=== PATIENT | female | born 1960 | race Caucasian/White ===

== ENCOUNTER → 2017-12-13 13:34 | Outpatient (CLI) | payer OTHER, SELFPAY ==
--- NOTE | 2017-12-13 13:38 | XR_ITS ---
XR knee LT 4V HISTORY: ITS.REASON: left knee pain ORDERING PHYSICIAN: Zachariah Zuleta MD PATIENT AGE: 57 years COMPARISON: 02/22/2017 FINDINGS: Moderate to severe osteoarthritic changes are present at the medial compartment of the left knee and have progressed since the previous exam with decrease in the joint space, osteosclerosis, and osteophyte formation. There are mild osteoarthritic changes of the patellofemoral joint and there is small suprapatellar effusion suspected. No fracture or dislocation. IMPRESSION: Moderate to severe osteoarthritis of the medial compartment with mild osteoarthritis of the patellofemoral joint and small knee joint effusion
== END ==
PROVIDERS: Visit Provider Orthopaedic Surgery
DX: M25.562 Pain in left knee (principal)
CPT/HCPCS: 73564

== ENCOUNTER → 2017-12-24 12:40 | Outpatient (CLI) | payer OTHER, SELFPAY ==
--- NOTE | 2017-12-24 12:43 | MR_ITS ---
MR knee LT wo con Ordering Physician: Zachariah Zuleta MD Patient Age: 57 years: Female HISTORY: ITS.REASON: left knee pain . Lateral sided knee pain pain around patella but no trauma. Pain with bending and extending the symptoms 2 months TECHNIQUE: Multiplanar multisequence imaging 1.5 the MR. Large knee technique COMPARISON :Plain films left knee 02/22/2017 FINDINGS : . Degenerative osteoarthritic changes of the left knee most evident at the medial compartment. Narrowing medial compartment. Tricompartmental marginal osteophyte features, most evident about the medial margin medial compartment. Chondral thinning and scuffing evident throughout medial compartment. Also note minimal reactive bone changes about the medial margin of the tibia reflecting the degenerative arthritic changes here at the narrowed joint. Patellofemoral joint also demonstrates diffuse chondral thinning at posterior patella a reflecting degenerative changes here . Medial Meniscal Tear: Most extensive tear involving Body the medial meniscus. Fragmented appearing meniscal tear seen here with small diminutive degenerated residual medial meniscus and medial extrusion of body of medial meniscus following the generous marginal osteophytes seen about medial compartment. Medial meniscal tear continues to the posterior but less extensive here. Prominent truncation with Abnormal signal posterior horn reflecting tear, fraying... Difficult to exclude small displaced meniscal fragment summation, accounting for this appearance Lateral meniscus appears overall intact with only question some minor fraying or fibrillation at its free margin at posterior horn and posterior body junction.... Lateral compartment cartilage is better maintained with only borderline thinning.q aspect Prominent joint effusion, with small moderate Rizvi's cyst 4.7 cm length.. There is also prominent also note some generous fluid anteriorly patella and patellar tendon. Most likely dependent fluid less likely related to inflammation. The patellar tendon itself appears intact. Quadriceps tendon intact. Medial collateral ligament with upper normal signal at its femoral insertion. The ACL is thin. I had difficulty confirming it is intact. Suspect it is very thin and degenerated. PCL intact There is also some curious increased bone signal at the superior base of the medial femoral condyle, extending medial/posterior aspect... Of possible significance but may be Nonspecific marrow signal changes in this large patient as a seen to continue superior to this into the distal shaft. . IMPRESSION: 1. OSTEOARTHRITIS most pronounced at the medial compartment, & less pronounced at patellofemoral joint. Prominent joint space narrowing, chondral thinning most pronounced at medial compartment.Also note Diffuse chondral thinning posterior patella .. Tricompartmental Marginal osteophytes, most evident about medial compartment 2. Associated prominent MEDIAL MENISCAL TEAR. Most extensive tear involving body, but tear continues back through posterior horn. 3. Large joint effusion, with Rzivi cyst 4. ACL difficult to visualize. Suspect/favor it is degenerated, thin but intact. Difficult to exclude tear
== END ==
PROVIDERS: PCP Family Medicine; Visit Provider Orthopaedic Surgery
DX: M25.562 Pain in left knee (principal); M17.12 Unilateral primary osteoarthritis, left knee
CPT/HCPCS: 73721

== ENCOUNTER 2018-02-18 19:54 | Observation (INO) ==
[2018-02-18 20:17] LABS: Basophils # 0.1 K/mm3 (0-0.2); Basophils % 1.1 % (0.1-2.0); Eosinophils # 0.4 K/mm3 (0.0-0.4); Eosinophils % 4.5 % (0.1-12.0); Hematocrit 45.4 % (37.0-47.0); Hemoglobin 14.1 g/dL (12.2-16.2); Lymphocytes # 2.9 K/mm3 (0.7-4.5); Lymphocytes % 29.8 K/mm3 (10-50); Mean Corpuscular HGB Conc 31.1 g/dL (31.8-35.4); Mean Corpuscular Volume 93.4 fl (81-99); Mean Platelet Volume 6.7 fl (7.4-10.4); Monocytes # 0.8 K/mm3 (0.1-1.0); Monocytes % 8.2 % (1.7-9.3); Neutrophils # 5.4 K/mm3 (1.8-7.8); Neutrophils % 56.4 % (37.0-80.0); Platelet Count 405 K/mm3 (142-424); Red Blood Count 4.86 M/mm3 (4.20-5.40); Red Cell Distribution Width 12.4 % (11.5-17.5); White Blood Count 9.6 K/mm3 (4.8-10.8)
[2018-02-18 20:34] LABS: Alanine Aminotransferase 69 U/L (12-78); Albumin Level 3.4 gm/dL (3.4-5.0); Alkaline Phosphatase 145 U/L (46-116); Amylase 21 U/L (25-125); Anion Gap 6.1 mEq/L (5-15); Aspartate Amino Transferase 54 U/L (15-37); Bilirubin,Direct 0.1 mg/dL (0.0-0.2); Bilirubin,Indirect 0.5 mg/dL (0.0-0.9); Bilirubin,Total 0.6 mg/dL (0.2-1.0); Blood Urea Nitrogen 9 mg/dL (7-18); Calcium 9.1 mg/dL (8.5-10.1); Carbon Dioxide 30 mmol/L (21.0-32.0); Chloride 100 mmol/L (98-107); Glucose 105 mg/dL (74-106); Lipase 77 u/L (73-393); Potassium 4.1 mmoL/L (3.5-5.1); Sodium 132 mmol/L (136-145); Total Protein,Serum 7.5 gm/dL (6.4-8.2)
--- NOTE | 2018-02-18 21:26 | Emergency Department Note ---
ED Disposition Clinical Impression: Chest pain Qualifiers: Chest pain type: precordial pain Qualified Code(s): R07.2 - Precordial pain Disposition: Admitted as Observation Condition on Discharge: Good Referrals: Valente Matos JR, MD [Primary Care Provider] - - Critical Care Critical Care Time: No Attestation: On 02/18/18, the high probability of a clinically significant, sudden or life threatening deterioration of the following system(s) required my full and direct attention, intervention and personal management. The time I documented below is in addition to time spent performing reported procedures but includes the following listed in this critical care notation. Medical Decision Making - Medical Records Medical records reviewed: Yes: I reviewed the patient's medical records. - [place] Inquiry Pt receiving controlled substance: No Vital Signs: 02/18/18 19:55 02/18/18 20:50 Temperature 98 F Temperature Source Oral Pulse Rate [Right Radial] 84 83 Respiratory Rate 18 16 Blood Pressure [Right Arm] 119/91 112/66 Blood Pressure Mean [Right Arm] 100 81 Blood Pressure Source [Right Arm] Automatic Cuff Automatic Cuff Blood Pressure Position [Right Arm] Sitting Supine 02 Sat by Pulse Oximetry 100 98 Oxygen Delivery Method Room Air Room Air - Lab Data Lab results reviewed: Yes: I reviewed the patient's lab results. Lab Results 02/18/18 20:05: WBC 9.6, RBC 4.86, Hgb 14.1, Hct 45.4, MCV 93.4, MCH 29.0, MCHC 31.1 L, RDW 12.4, Plt Count 405, MPV 6.7 L, Neut % (Auto) 56.4, Lymph % (Auto) 29.8, [place] % (Auto) 8.2, Eos % (Auto) 4.5, Baso % (Auto) 1.1, Neut # (Auto) 5.4 , Lymph # (Auto) 2.9, [place] # (Auto) 0.8, Eos # (Auto) 0.4, Baso # (Auto) 0.1 02/18/18 20:05: Sodium 132 L, Potassium 4.1, Chloride 100, Carbon Dioxide 30, Anion Gap 6.1, BUN 9, Creatinine 0.66, Estimated Creat Clear 164, Estimated GFR 92, Est GFR ( Amer) 111, Glucose 105, Calcium 9.1, Total Bilirubin 0.6, Direct Bilirubin 0.1, Indirect Bilirubin 0.5, AST 54 H, ALT 69, Alkaline Phosphatase 145 H, Troponin I < 0.02, Total Protein 7.5, Albumin 3.4, Amylase 21 L, Lipase 77 Result diagrams: 02/18/18 20:05 02/18/18 20:05 Orders (Tests/Meds): ED MEDICATIONS Discontinued Medications Generic Name Dose Route Start Last Admin Trade Name Freq PRN Reason Stop Dose Admin Ketorolac Tromethamine 30 mg 02/18/18 20:16 02/18/18 20:22 Toradol 30mg/Ml Vial IV 02/18/18 20:17 30 mg ONCE ONE Administration ORDERS Category Date Time Status XR chest 2V Stat Exams 02/18/18 20:10 Taken - Radiology Data #1 Image(s): Chest Image Reviewed: Yes I reviewed the patient's radiology image Preliminary Findings: Normal/NAD - ECG Data Tracing #1 I reviewed this ECG and interpreted as documented below: ECG normal with no acute: arrhythmias, ischemia, conduction abnormalities, chamber hypertrophy Normal Sinus Rhythm: Yes - Physician Consults Physician Consulted: aman Reason -: Admission Chest Pain HPI - General Chief Complaint: Chest Pain Stated Complaint: chest pain Time Seen by Provider: 02/18/18 21:22 Mode of Arrival: EMS Source of Information: Patient, EMS, Medical Record Limitations: No Limitations Description of Symptoms (Recalled from ER Triage Doc. by RN): to two, nitro at home for chest pain watching tv, stress lately, no relief, asprin by ems - History of Present Illness MD complaint: chest pain indicative of cardiac Duration: constant Pain location: substernal Severity: moderate Quality: sharp Pain radiation: LUE Relieving factors: nothing Risk Factors for CAD: Family Hx of CAD Treatments prior to or on arrival for Cardiac Chest Pain: aspirin, nitroglycerin - JOSEPH Score Non-Stemi Age of patient: Less than 65 yrs Number of risk factors for CAD: Presence of 3 or more Prior coronary artery stenosis(seen in coronary angiography): Less than 50% ST-Segment deviation on ECG (more than 1 min): Absent Prior aspirin intake: ASA intake in the last 7 days Severe anginal chest pain: No or one episode in last 24 hours Elevated cardiac markers(CK-MB or troponin): Absent Non-Stemi Risk Score: 2 - Related Data Prior Cardiac Testing/Procedures: Cardiac Angiogram On Oral Contraceptives: No Home Medications Medication Instructions Recorded Confirmed acetaminophen 300 mg-codeine 30 mg 1 tab PO Q6H PRN 12/13/17 02/18/18 tablet aspirin 81 mg chewable tablet 81 mg PO ONCE 12/13/17 02/18/18 calcium carbonate 200 mg calcium 200 mg PO TID tab 12/13/17 02/18/18 (500 mg) chewable tablet diazepam 5 mg tablet 5 mg PO TID 12/13/17 02/18/18 diclofenac sodium 25 mg 25 mg PO TID 12/13/17 02/18/18 tablet,delayed release furosemide 20 mg tablet 20 mg PO ONCE 12/13/17 02/18/18 metoprolol tartrate 25 mg tablet 25 mg PO BID 12/13/17 02/18/18 mometasone-formoterol HFA 100 2 puff INHALATION BID 12/13/17 02/18/18 mcg-5 mcg/actuation aerosol inhaler multivitamin tablet 1 tab PO QAM 12/13/17 02/18/18 pantoprazole 20 mg tablet,delayed 20 mg PO QHS 12/13/17 02/18/18 release pravastatin 20 mg tablet 20 mg PO QHS 12/13/17 02/18/18 quinapril 10 mg tablet 10 mg PO BID 12/13/17 02/18/18 ropinirole 1 mg tablet 1 mg PO TID 12/13/17 02/18/18 venlafaxine 25 mg tablet 25 mg PO TID 12/13/17 02/18/18 Amitriptyline HCl [Elavil 50mg 50 mg PO DAILY 02/18/18 02/18/18 tablet] Allergies Allergy/AdvReac Type Severity Reaction Status Date / Time diphenhydramine Allergy Unknown AGITATION Verified 02/18/18 20:13 [From BENADRYL] oxycodone [From PERCOCET] Allergy Unknown Verified 02/18/18 20:13 promethazine [From PHENERGAN] Allergy Unknown AGITATION Verified 02/18/18 20:13 sumatriptan [From IMITREX] Allergy Unknown Verified 02/18/18 20:13 [place] History I have reviewed the patient's past medical history: Yes Medical History: Reports:: Anxiety, Depression, Gastroesophageal Reflux Disease( GERD), Hyperlipidemia, Hypertension Denies:: Cancer, Diabetes Mellitus Type 1, Diabetes Mellitus Type 2, MRSA Other Medical History: Reports: Arthritis Laterality Cases: Left: Arthroscopy Knee, Bilateral: Carpal Tunnel Release Other Surgeries: Yes: Appendectomy, Cholecystectomy, Hysterectomy-Total Amputation: No Fractures: No - Social History Smoking Status: Never smoker Alcohol Intake: current Alcohol Intake Frequency:: holidays/special occasions only - Psychiatric History Expresses thoughts of harming self/others: None Suicide Plan Description: No Plan Pschychiatric History:: Reports:: Anxiety, Depression Family Hx:: Stroke, Heart Attack, Coronary Artery Disease ROS Obtained: Yes All systems reviewed & no additional complaints - Constitutional Constitutional: Denies fever(s) - Eyes Eyes: Denies change in vision - ENT Ears, Nose, Mouth, and Throat: Denies sore throat - Cardiovascular Cardiovascular: Reports chest pain - Respiratory Respiratory: No cough - Gastrointestinal Gastrointestingal: Denies: abdominal pain - Genitourinary Female Genitourinary: Denies hematuria - Musculoskeletal Musculoskeletal: Denies joint pain, Denies joint swelling - Integumentary/Breasts Skin/Breast: Denies rash - Neurologic Neurologic: Reports headache(s), Denies seizure-like activity Physical Exam - General General appearance: alert - Head Head exam: normocephalic - Eye Eye exam: Present: PERRL, EOMI - ENT ENT exam: Present: mucous membranes moist - Neck Neck exam: Present: trachea midline - Respiratory Respiratory exam: Absent: respiratory distress - Cardiovascular Cardiovascular exam: Present: regular rate, systolic murmur - Abdominal Exam Abdominal exam: Present: soft - Extremities Exam Extremities exam: Absent: calf tenderness - Neurological Exam Neurological exam: Present: alert, oriented X3, CN II-XII intact - Psychiatric Psychiatric exam: Present: normal affect - Skin Skin exam: Absent: rash
[2018-02-19 05:25] LABS: Basophils # 0.1 K/mm3 (0-0.2); Basophils % 1.6 % (0.1-2.0); Eosinophils # 0.5 K/mm3 (0.0-0.4); Eosinophils % 6.3 % (0.1-12.0); Lymphocytes # 2.9 K/mm3 (0.7-4.5); Lymphocytes % 37.9 K/mm3 (10-50); Mean Corpuscular HGB Conc 30.6 g/dL (31.8-35.4); Mean Corpuscular Hemoglobin 28.7 pg (27.0-31.2); Mean Corpuscular Volume 93.8 fl (81-99); Mean Platelet Volume 6.7 fl (7.4-10.4); Monocytes # 0.6 K/mm3 (0.1-1.0); Monocytes % 7.6 % (1.7-9.3); Neutrophils # 3.6 K/mm3 (1.8-7.8); Neutrophils % 46.6 % (37.0-80.0); Platelet Count 339 K/mm3 (142-424); Red Blood Count 4.36 M/mm3 (4.20-5.40); Red Cell Distribution Width 12.5 % (11.5-17.5); White Blood Count 7.8 K/mm3 (4.8-10.8)
[2018-02-19 05:29] LABS: Hemoglobin 12.6 g/dL (12.2-16.2)
[2018-02-19 05:44] LABS: Anion Gap 9.9 mEq/L (5-15); Calcium 8.8 mg/dL (8.5-10.1); Chol/HDL Ratio 4.7 (1-3.5); Potassium 3.9 mmoL/L (3.5-5.1)
--- NOTE | 2018-02-19 07:28 | Pharmacy Consult Notes ---
[facility] Pharmacy VTE Monitoring - Patient Demographics Admission date: 02/19/18 Report Date: 02/19/18 Time: 07:28 Allergies/Adverse Reactions: Patient Allergies diphenhydramine [From BENADRYL] Allergy (Unknown, Verified 02/18/18 20:13) AGITATION oxycodone [From PERCOCET] Allergy (Unknown, Verified 02/18/18 20:13) promethazine [From PHENERGAN] Allergy (Unknown, Verified 02/18/18 20:13) AGITATION sumatriptan [From IMITREX] Allergy (Unknown, Verified 02/18/18 20:13) Height: 1.7 m Weight: 116.205 kg Patient Problems: Current Active Problems Chest pain (Acute) - VTE Risk Labs: VTE Related Lab Results Hgb 12.6 g/dL (12.2-16.2) D 02/19/18 05:00 Hct 41.0 % (37.0-47.0) 02/19/18 05:00 Plt Count 339 K/mm3 (142-424) 02/19/18 05:00 BUN 10 mg/dL (7-18) 02/19/18 05:00 Creatinine 0.68 mg/dL (0.55-1.02) 02/19/18 05:00 Estimated Creat Clear 163 mL/min (0-300) 02/19/18 05:00 Was VTE Risk Assessment Performed: Yes VTE Score: 4 VTE Risk Level: Low Risk Clinical Trial Participant: No - Prophylaxis VTE Prophylaxis Ordered?: Yes Types of VTE Prophylaxis: TEDS Knee High
[2018-02-19 07:41] VITALS: BP 86/48
--- NOTE | 2018-02-19 08:39 | History & Physical Report ---
*Admission Date: 02/19/18 <Brinda Sanchez 02/19/18 09:00> *Chief complaint: Chest pain <Brinda Sanchez 02/19/18 09:00> *History of present illness: Ms. Barcenas is a 57-year-old female with a physician in [facility] who presented to [facility] emergency room after experiencing sharp left sternal chest pain while sitting and watching television last p.m. She has a history of hypertension, hyperlipidemia, anxiety, and heart murmur. She denies any radiation of her pain, heart palpitations, leg edema, shortness of breath, nausea, vomiting, fever, and cough. She states she took 2 nitroglycerin at home without any change in her pain. She did receive some morphine in the emergency room which did not help. She was evaluated in the emergency room and admitted for further cardiology evaluation. This a.m. the pain persist but is much less. She still describes the discomfort as being sharp in nature. <Brinda Sanchez 02/19/18 09:00> [facility] History Medical History: Reports:: Anxiety, Arrhythmia, Depression, Gastroesophageal Reflux Disease(GERD), Heart Murmur, Hyperlipidemia, Hypertension Denies:: Atherosclerotic Heart Disease, Cancer, Congestive Heart Failure, Chronic Obstructive Pulmonary Disease (COPD), Diabetes Mellitus Type 1, Diabetes Mellitus Type 2, MRSA <Brinda Sanchez 02/19/18 09:00> Other Medical History: Reports: Arthritis, Cataracts, Fibromyalgia <Brinda Sanchez 02/19/18 09:00> Laterality Cases: Left: Arthroscopy Knee, Bilateral: Carpal Tunnel Release, Cataract <Brinda Sanchez 02/19/18 09:00> Other Surgeries: Yes: Appendectomy, Cholecystectomy, Hysterectomy-Total < Brinda Sanchez 02/19/18 09:00> Amputation: No <Brinda Sanchez 02/19/18 09:00> Fractures: No <Brinda Sanchez 02/19/18 09:00> - *Social History Educational Level: Completed High School <Brinda Sanchez 02/19/18 09:00> Smoking Status: Never smoker <Brinda Sanchez 02/19/18 09:00> Alcohol Intake: never <Brinda Sanchez 02/19/18 09:00> Alcohol Intake Frequency:: holidays/special occasions only <SanchezBrinda 09:00> Occupational Status: disabled <SanchezBrinda 02/19/18 09:00> Housing: house <SanchezBrinda 02/19/18 09:00> Household Members: spouse, family <Sanchez,Brinda 02/19/18 09:00> - Psychiatric History Expresses thoughts of harming self/others: None <Brinda Sanchez 02/19/18 09: 00> Suicide Plan Description: No Plan <SanchezBrinda 02/19/18 09:00> Pschychiatric History:: Reports:: Anxiety, Depression <DanielBrinda 09:00> *Family Hx:: Stroke, Heart Attack, Coronary Artery Disease <DanielBrinda 09:00> Review of Systems - Constitutional Denies chills, Denies fever(s), Denies headache(s) <Brinda Sanchez 02/19/18 09:00> - ENT Denies ear pain, Denies sore throat, Denies dizziness <DanielBrinda 09:00> - *Cardiovascular Reports chest pain, Denies excessive sweating, Denies shortness of breath, Denies generalized swelling, Denies irregular heart rhythm, Denies leg swelling <Melinda Sanchezhy 02/19/18 09:00> - *Respiratory Denies chest congestion, Denies cough, Denies shortness of breath <Melinda Sanchezhy 02/19/18 09:00> - *Gastrointestinal Reports heartburn, Denies abdominal pain, Denies constipation, Denies nausea, Denies vomiting <Melinda Sanchezhy 02/19/18 09:00> - *Genitourinary Denies difficulty urinating <Melinda Sanchezhy 02/19/18 09:00> - *Musculoskeletal Denies abnormal walking, Denies joint pain <DanielBrinda 02/19/18 09:00> - *Neurologic Reports headache(s), Denies seizure-like activity <Melinda Sanchezhy 02/19/18 09 :00> - Psychiatric Reports anxiety, Reports depression <DanielBrinda 02/19/18 09:00> Meds Home Medications Medication Instructions Recorded Confirmed Type acetaminophen 300 mg-codeine 30 mg 1 tab PO Q6H PRN 12/13/17 02/18/18 History tablet aspirin 81 mg chewable tablet 81 mg PO DAILY 12/13/17 02/18/18 History calcium carbonate 200 mg calcium 200 mg PO DAILY tab 12/13/17 02/18/18 History (500 mg) chewable tablet diazepam 5 mg tablet 10 mg PO TID 12/13/17 02/18/18 History diclofenac sodium 25 mg 25 mg PO TID 12/13/17 02/18/18 History tablet,delayed release furosemide 20 mg tablet 20 mg PO DAILY 12/13/17 02/18/18 History metoprolol tartrate 25 mg tablet 25 mg PO BID 12/13/17 02/18/18 History mometasone-formoterol HFA 100 2 puff INHALATION BID 12/13/17 02/18/18 History mcg-5 mcg/actuation aerosol inhaler multivitamin tablet 1 tab PO QAM 12/13/17 02/18/18 History ropinirole 1 mg tablet 1 mg PO DAILY 12/13/17 02/18/18 History Amitriptyline HCl [Elavil 50mg 100 mg PO HS 02/18/18 02/19/18 History tablet] Pantoprazole Sodium [Protonix 20mg 20 mg PO BID 02/19/18 02/19/18 History Tab] Pravastatin Sodium [Pravachol 40mg 40 mg PO HS 02/19/18 02/19/18 History Tablet] Quinapril HCl 60 mg PO DAILY 02/19/18 02/19/18 History Tamsulosin HCl [Flomax 0.4mg 0.4 mg PO HS 02/19/18 02/19/18 History capsule] Venlafaxine HCl 75 mg PO BID 02/19/18 02/19/18 History <Saeid Rose - 02/26/18 16:41> Allergies Allergy/AdvReac Type Severity Reaction Status Date / Time diphenhydramine Allergy Unknown AGITATION Verified 02/18/18 20:13 [From BENADRYL] oxycodone [From PERCOCET] Allergy Unknown Verified 02/18/18 20:13 promethazine [From PHENERGAN] Allergy Unknown AGITATION Verified 02/18/18 20:13 sumatriptan [From IMITREX] Allergy Unknown Verified 02/18/18 20:13 <Saeid Rose - 02/26/18 16:41> Exam Vital signs and Labs for Last 24 Hours: Temp Pulse Resp BP Pulse Ox 98.1 F 84 18 86/48 92 L 02/19/18 07:40 02/19/18 08:00 02/19/18 08:00 02/19/18 07:40 02/19/18 08:00 <Saeid Rose - 02/26/18 16:41> Temp Pulse Resp BP Pulse Ox 98.1 F 84 18 86/48 92 L 02/19/18 07:40 02/19/18 07:40 02/19/18 07:40 02/19/18 07:40 02/19/18 07:40 Laboratory Results - last 24 hr 02/18/18 20:05: WBC 9.6, RBC 4.86, Hgb 14.1, Hct 45.4, MCV 93.4, MCH 29.0, MCHC 31.1 L, RDW 12.4, Plt Count 405, MPV 6.7 L, Neut % (Auto) 56.4, Lymph % (Auto) 29.8, [place] % (Auto) 8.2, Eos % (Auto) 4.5, Baso % (Auto) 1.1, Neut # (Auto) 5.4 , Lymph # (Auto) 2.9, [place] # (Auto) 0.8, Eos # (Auto) 0.4, Baso # (Auto) 0.1 02/18/18 20:05: Sodium 132 L, Potassium 4.1, Chloride 100, Carbon Dioxide 30, Anion Gap 6.1, BUN 9, Creatinine 0.66, Estimated Creat Clear 164, Estimated GFR 92, Est GFR ( Amer) 111, Glucose 105, Calcium 9.1, Total Bilirubin 0.6, Direct Bilirubin 0.1, Indirect Bilirubin 0.5, AST 54 H, ALT 69, Alkaline Phosphatase 145 H, Troponin I < 0.02, Total Protein 7.5, Albumin 3.4, Amylase 21 L, Lipase 77 02/18/18 22:56: Troponin I < 0.02 02/19/18 01:50: Troponin I < 0.02 02/19/18 05:00: Troponin I < 0.02 02/19/18 05:00: WBC 7.8, RBC 4.36, Hgb 12.6 D, Hct 41.0, MCV 93.8, MCH 28.7, MCHC 30.6 L, RDW 12.5, Plt Count 339, MPV 6.7 L, Neut % (Auto) 46.6, Lymph % ( Auto) 37.9, [place] % (Auto) 7.6, Eos % (Auto) 6.3, Baso % (Auto) 1.6, Neut # (Auto ) 3.6, Lymph # (Auto) 2.9, [place] # (Auto) 0.6, Eos # (Auto) 0.5 H, Baso # (Auto) 0.1 02/19/18 05:00: Sodium 139, Potassium 3.9, Chloride 103, Carbon Dioxide 30, Anion Gap 9.9, BUN 10, Creatinine 0.68, Estimated Creat Clear 163, Estimated GFR 89, Est GFR ( Amer) 107, Glucose 115 H, Calcium 8.8, Magnesium 1.8, Triglycerides 147, Cholesterol 168, LDL Cholesterol 103, VLDL Cholesterol 29, HDL Cholesterol 36, Cholesterol/HDL Ratio 4.7 H <Brinda Sanchez 02/19/18 09:00> I & O for Last 24 hours: Intake & Output 02/16/18 02/17/18 02/18/18 02/19/18 11:59 11:59 11:59 11:59 Intake Total 0 / 0 Balance 0 / 0 Weight 256 lb 3 oz <Brinda Sanchez 02/19/18 09:00> Radiology Reports for the Last 24 Hours: Chest x-ray 02/18/2018 IMPRESSION: Negative chest, no acute finding <Brinda Sanchez 02/19/18 09:00> - Constitutional no acute distress, obese <Brinda Sanchez 02/19/18 09:00> - *Routine HEENT Exam Head: Present: normocephalic, atraumatic <Brinda Sanchez 02/19/18 09:00> Eye: Present: PERRL. Absent: conjunctival icterus, scleral injection <Brinda Sanchez 02/19/18 09:00> ENT: Present: mucous membranes moist, oropharynx clear <Brinda Sanchez - 09:00> - *Routine Neck Exam Present: supple. Absent: carotid bruit, lymphadenopathy, thyromegaly <[facility] 02/19/18 09:00> - Routine Chest/Breast/Axilla Exam Chest wall: Absent: tenderness <Sanchez,Brinda - 02/19/18 09:00> - *Routine Respiratory Exam Present: CTA bilaterally (Anteriorly and posteriorly) [facility]> - *Routine Cardiovascular Exam Present: RRR <Sanchez,[facility] 02/19/18 09:00> - *Routine Abdominal Exam Present: soft, normoactive bowel sounds. Absent: tenderness <[facility] 02/19/18 09:00> Comments: Obese <[facility] 02/19/18 09:00> - *Routine Extremities Exam Absent: edema, calf tenderness <[facility] 02/19/18 09:00> - *Routine Neurological Exam Absent: altered mental status [facility]> Almost constant movement of mouth and tongue. <Sanchez,[facility] 02/19/18 09:00> H&P: Result - Labs Labs: Short CBC 02/18/18 02/19/18 Range/Units 20:05 05:00 WBC 9.6 7.8 (4.8-10.8) K/mm3 Hgb 14.1 12.6 D (12.2-16.2) g/dL Hct 45.4 41.0 (37.0-47.0) % Plt Count 405 339 (142-424) K/mm3 [facility] 02/18/18 02/19/18 20:05 05:00 Sodium 132 L 139 Potassium 4.1 3.9 Chloride 100 103 Carbon Dioxide 30 30 BUN 9 10 Creatinine 0.66 0.68 Glucose 105 115 H Calcium 9.1 8.8 Cardiac Enzymes 02/18/18 02/18/18 02/19/18 Range/Units 20:05 22:56 01:50 Troponin I < 0.02 < 0.02 < 0.02 (0.00-0.06) ng/ml 02/19/18 Range/Units 05:00 Troponin I < 0.02 (0.00-0.06) ng/ml Liver Function 02/18/18 Range/Units 20:05 Total Bilirubin 0.6 (0.2-1.0) mg/dL Direct Bilirubin 0.1 (0.0-0.2) mg/dL AST 54 H (15-37) U/L ALT 69 (12-78) U/L Alkaline Phosphatase 145 H (46-116) U/L Albumin 3.4 (3.4-5.0) gm/dL <SanchezBrinda - 02/19/18 09:00> Assessment and Plan (1) Chest pain Status: Acute Qualifiers: Chest pain type: precordial pain Qualified Code(s): R07.2 - Precordial pain Category: Medical Code(s): R07.9 - Chest pain, unspecified (2) HTN (hypertension) Status: Chronic Category: Medical Code(s): I10 - Essential (primary) hypertension (3) Hyperlipemia Status: Chronic Category: Medical Code(s): E78.5 - Hyperlipidemia, unspecified (4) Anxiety Status: Chronic Category: Medical Code(s): F41.9 - Anxiety disorder, unspecified (5) Depression Status: Chronic Category: Medical Code(s): F32.9 - Major depressive disorder, single episode, unspecified (6) GERD (gastroesophageal reflux disease) Status: Chronic Category: Medical Code(s): K21.9 - Gastro-esophageal reflux disease without esophagitis <MiltonSaeid Diego - 02/26/18 16:41> (1) Chest pain Status: Acute Qualifiers: Chest pain type: precordial pain Qualified Code(s): R07.2 - Precordial pain Category: Medical Code(s): R07.9 - Chest pain, unspecified (2) HTN (hypertension) Status: Chronic Category: Medical Code(s): I10 - Essential (primary) hypertension (3) Hyperlipemia Status: Chronic Category: Medical Code(s): E78.5 - Hyperlipidemia, unspecified (4) Anxiety Status: Chronic Category: Medical Code(s): F41.9 - Anxiety disorder, unspecified (5) Depression Status: Chronic Category: Medical Code(s): F32.9 - Major depressive disorder, single episode, unspecified (6) GERD (gastroesophageal reflux disease) Status: Chronic Category: Medical Code(s): K21.9 - Gastro-esophageal reflux disease without esophagitis <Brinda Sanchez - 02/19/18 08:36> - Assessment and plan all Dx Assessment and Plan for all problems:: Patient seen and examined. Concur with above plan. <Saeid Rose - 02/26/18 16:41> Troponin I's have been negative 4. She will have a cardiology consult. PPI has been added to her meds. Other home meds have been started. <Brinda Sanchez - 02/19/18 09:00>
--- NOTE | 2018-02-19 10:52 | Consult Report ---
History of Present Illness Consult date: 02/19/18 Requesting physician: Saeid Rose Consult reason: chest pain Chief complaint: Chest pain and shortness of breath Additional Medical History:: 1. Atypical chest pain a. Sharp pain of the left chest wall. No relief with NTG. b. No known history of Coronary artery disease. c. Normal coronaries: catheterization 3-4 years ago 2. Hypertension 3. Hyperlipidemia a. LDL 103. Pt is on a statin 4. Anxiety History of present illness: 57-year-old female is presented in the emergency room early this a.m. complaining of sharp left chest wall pain that began when she was watching TV. Denies radiation of the pain. This episode of chest pain was accompanied by shortness of breath. Denied nausea or vomiting. Denied dizziness or palpitations. Patient stated she took nitroglycerin times at home with no relief from the pain. Patient has no known history of coronary disease. Patient does have history of hypertension, hyperlipidemia and anxiety. Patient denies tobacco or alcohol use. Initial EKG revealed normal sinus rhythm with a heart rate of 87 bpm. Chest x- ray revealed no acute findings. Baseline labs were obtained which were unremarkable. Cardiac enzymes troponin less than 0.021 was drawn. Patient related that 3-4 years ago she underwent a heart catheterization in which she was told her heart was normal. Patient also stated she has had several stress tests in the past which have revealed no abnormalities. Discussed with the patient the benefits and risk of a Lexiscan Myoview to determine ischemia. Patient was agreeable on an outpatient basis. Echocardiogram will also be obtained to assess LV function and valve status. This plan was discussed Dr. Rose. He was also agreeable. [facility] History Medical History: Reports:: Anxiety, Arrhythmia, Depression, Gastroesophageal Reflux Disease(GERD), Heart Murmur, Hyperlipidemia, Hypertension Denies:: Atherosclerotic Heart Disease, Cancer, Congestive Heart Failure, Chronic Obstructive Pulmonary Disease (COPD), Diabetes Mellitus Type 1, Diabetes Mellitus Type 2, MRSA Other Medical History: Reports: Arthritis, Cataracts, Fibromyalgia Laterality Cases: Left: Arthroscopy Knee, Bilateral: Carpal Tunnel Release, Cataract Other Surgeries: Yes: Appendectomy, Cholecystectomy, Hysterectomy-Total Amputation: No Fractures: No - *Social History Educational Level: Completed High School Smoking Status: Never smoker Alcohol Intake: never Alcohol Intake Frequency:: holidays/special occasions only Occupational Status: disabled Housing: house Household Members: spouse, family - Psychiatric History Expresses thoughts of harming self/others: None Suicide Plan Description: No Plan Pschychiatric History:: Reports:: Anxiety, Depression *Family Hx:: Stroke, Heart Attack, Coronary Artery Disease Meds Home Medications Medication Instructions Recorded Confirmed Type acetaminophen 300 mg-codeine 30 mg 1 tab PO Q6H PRN 12/13/17 02/18/18 History tablet aspirin 81 mg chewable tablet 81 mg PO DAILY 12/13/17 02/18/18 History calcium carbonate 200 mg calcium 200 mg PO DAILY tab 12/13/17 02/18/18 History (500 mg) chewable tablet diazepam 5 mg tablet 10 mg PO TID 12/13/17 02/18/18 History diclofenac sodium 25 mg 25 mg PO TID 12/13/17 02/18/18 History tablet,delayed release furosemide 20 mg tablet 20 mg PO DAILY 12/13/17 02/18/18 History metoprolol tartrate 25 mg tablet 25 mg PO BID 12/13/17 02/18/18 History mometasone-formoterol HFA 100 2 puff INHALATION BID 12/13/17 02/18/18 History mcg-5 mcg/actuation aerosol inhaler multivitamin tablet 1 tab PO QAM 12/13/17 02/18/18 History ropinirole 1 mg tablet 1 mg PO DAILY 12/13/17 02/18/18 History Amitriptyline HCl [Elavil 50mg 100 mg PO HS 02/18/18 02/19/18 History tablet] Pantoprazole Sodium [Protonix 20mg 20 mg PO BID 02/19/18 02/19/18 History Tab] Pravastatin Sodium [Pravachol 40mg 40 mg PO HS 02/19/18 02/19/18 History Tablet] Quinapril HCl 60 mg PO DAILY 02/19/18 02/19/18 History Tamsulosin HCl [Flomax 0.4mg 0.4 mg PO HS 02/19/18 02/19/18 History capsule] Venlafaxine HCl 75 mg PO BID 02/19/18 02/19/18 History Allergies Allergy/AdvReac Type Severity Reaction Status Date / Time diphenhydramine Allergy Unknown AGITATION Verified 02/18/18 20:13 [From BENADRYL] oxycodone [From PERCOCET] Allergy Unknown Verified 02/18/18 20:13 promethazine [From PHENERGAN] Allergy Unknown AGITATION Verified 02/18/18 20:13 sumatriptan [From IMITREX] Allergy Unknown Verified 02/18/18 20:13 Review of Systems - Review of Systems Review of systems:: pertinent systems reviewed and negative unless documented below - Constitutional Reports weakness - ENT Denies dizziness, Denies difficulty swallowing - *Cardiovascular Reports chest pain, Reports chest pain at rest, Reports chest pain with activity , Reports shortness of breath, Reports shortness of breath with activity, Denies generalized swelling, Denies radiating jaw, neck or arm pain - *Respiratory Reports shortness of breath, Reports shortness of breath with activity, Denies cough, Denies wheezing - *Gastrointestinal Denies abdominal pain, Denies belching, Denies difficulty swallowing - *Musculoskeletal Reports muscle weakness, Denies abnormal walking - *Neurologic Reports headache(s), Denies abnormal walking, Denies confusion, Denies dizziness , Denies seizure-like activity, Denies fainting, Denies dizziness - Psychiatric Denies abnormal sleep pattern, Denies change in appetite - Endocrine Denies excessive sweating, Denies rapid, pounding, or irregular heartbeat Exam Vital signs and Labs for Last 24 Hours: Temp Pulse Resp BP Pulse Ox 98.1 F 84 18 86/48 92 L 02/19/18 07:40 02/19/18 07:40 02/19/18 07:40 02/19/18 07:40 02/19/18 07:40 Laboratory Results - last 24 hr 02/18/18 20:05: WBC 9.6, RBC 4.86, Hgb 14.1, Hct 45.4, MCV 93.4, MCH 29.0, MCHC 31.1 L, RDW 12.4, Plt Count 405, MPV 6.7 L, Neut % (Auto) 56.4, Lymph % (Auto) 29.8, [place] % (Auto) 8.2, Eos % (Auto) 4.5, Baso % (Auto) 1.1, Neut # (Auto) 5.4 , Lymph # (Auto) 2.9, [place] # (Auto) 0.8, Eos # (Auto) 0.4, Baso # (Auto) 0.1 02/18/18 20:05: Sodium 132 L, Potassium 4.1, Chloride 100, Carbon Dioxide 30, Anion Gap 6.1, BUN 9, Creatinine 0.66, Estimated Creat Clear 164, Estimated GFR 92, Est GFR ( Amer) 111, Glucose 105, Calcium 9.1, Total Bilirubin 0.6, Direct Bilirubin 0.1, Indirect Bilirubin 0.5, AST 54 H, ALT 69, Alkaline Phosphatase 145 H, Troponin I < 0.02, Total Protein 7.5, Albumin 3.4, Amylase 21 L, Lipase 77 02/18/18 22:56: Troponin I < 0.02 02/19/18 01:50: Troponin I < 0.02 02/19/18 05:00: Troponin I < 0.02 02/19/18 05:00: WBC 7.8, RBC 4.36, Hgb 12.6 D, Hct 41.0, MCV 93.8, MCH 28.7, MCHC 30.6 L, RDW 12.5, Plt Count 339, MPV 6.7 L, Neut % (Auto) 46.6, Lymph % ( Auto) 37.9, [place] % (Auto) 7.6, Eos % (Auto) 6.3, Baso % (Auto) 1.6, Neut # (Auto ) 3.6, Lymph # (Auto) 2.9, [place] # (Auto) 0.6, Eos # (Auto) 0.5 H, Baso # (Auto) 0.1 02/19/18 05:00: Sodium 139, Potassium 3.9, Chloride 103, Carbon Dioxide 30, Anion Gap 9.9, BUN 10, Creatinine 0.68, Estimated Creat Clear 163, Estimated GFR 89, Est GFR ( Amer) 107, Glucose 115 H, Calcium 8.8, Magnesium 1.8, Triglycerides 147, Cholesterol 168, LDL Cholesterol 103, VLDL Cholesterol 29, HDL Cholesterol 36, Cholesterol/HDL Ratio 4.7 H I & O for Last 24 hours: Intake & Output 02/16/18 02/17/18 02/18/18 02/19/18 23:59 23:59 23:59 23:59 Intake Total 0 / 0 Balance 0 / 0 Weight 256 lb 3 oz 256 lb 3 oz - Constitutional no acute distress, obese - *Routine HEENT Exam Head: Present: normocephalic - *Routine Neck Exam Present: supple, full ROM, normal carotid upstroke, trachea midline. Absent: JVD, carotid bruit, lymphadenopathy - Routine Chest/Breast/Axilla Exam Chest wall: Present: tenderness - *Routine Respiratory Exam Present: accessory muscle use, CTA bilaterally. Absent: respiratory distress, wheezes, crackles - *Routine Cardiovascular Exam Present: RRR, Normal S1, Normal S2. Absent: murmur, gallop, rubs, JVD - *Routine Abdominal Exam Present: soft. Absent: distended, guarding, firm - *Routine Extremities Exam Present: full ROM, pulses intact, normal capillary refill. Absent: cyanosis, clubbing, edema - Routine Back/Spine/Pelvis Exam Back/Spine: Present: full ROM. Absent: CVA tenderness - *Routine Skin Exam Present: intact, dry, warm. Absent: cyanosis, erythema - *Routine Neurological Exam Present: alert, oriented X3, CN II-XII intact, moving all extremities, normal speech - Routine Psychiatric Exam Present: normal affect, cooperative Assessment and Plan (1) Chest pain Current visit: Yes Status: Acute Qualifiers: Chest pain type: precordial pain Qualified Code(s): R07.2 - Precordial pain Category: Medical Code(s): R07.9 - Chest pain, unspecified (2) HTN (hypertension) Current visit: Yes Status: Chronic Category: Medical Code(s): I10 - Essential (primary) hypertension (3) Hyperlipemia Current visit: Yes Status: Chronic Category: Medical Code(s): E78.5 - Hyperlipidemia, unspecified (4) Anxiety Current visit: Yes Status: Chronic Category: Medical Code(s): F41.9 - Anxiety disorder, unspecified (5) Depression Current visit: Yes Status: Chronic Category: Medical Code(s): F32.9 - Major depressive disorder, single episode, unspecified (6) GERD (gastroesophageal reflux disease) Current visit: Yes Status: Chronic Category: Medical Code(s): K21.9 - Gastro-esophageal reflux disease without esophagitis - Assessment and plan all Dx Assessment and Plan for all problems:: Plan: 1. Obtain Echocardiogram to assess for LV function and valve status. 2. Schedule outpatient lexiscan myoview to assess for ischemia. 3. Add Aspirin 81mg daily. 4. Cardiac clinic follow up in one week after myoview stress and echocardiogram results.
--- NOTE | 2018-02-19 16:32 | Discharge Summary ---
General - General Admission date:: 02/18/18 <Saeid Rose - 02/26/18 16:38> 02/18/18 <Shantel Vilchis - 02/19/18 16:32> Discharge date: 02/19/18 <Shantel Vilchis - 02/19/18 16:32> HPI HPI: Ms. Barcenas is a 57-year-old female with a physician in [facility] who presented to [facility] emergency room after experiencing sharp left sternal chest pain while sitting and watching television last p.m. She has a history of hypertension, hyperlipidemia, anxiety, and heart murmur. She denies any radiation of her pain, heart palpitations, leg edema, shortness of breath, nausea, vomiting, fever, and cough. She states she took 2 nitroglycerin at home without any change in her pain. She did receive some morphine in the emergency room which did not help. She was evaluated in the emergency room and admitted for further cardiology evaluation. This a.m. the pain persist but is much less. She still describes the discomfort as being sharp in nature. <Shantel Vilchis - 02/19/18 16:32> Hospital Course Hospital Course: The patient's troponin I's were negative 4. She had a cardiology consult. She was started on a PPI and her regular meds. Cardiology saw the patient and ordered an echo. They scheduled the patient for an outpatient lexiscan myoview and added an ASA 81mg daily to her medications. She was stable to be discharged home and will f/u in the cardiology clinic in 1 week for results of her echo and stress test. <Shantel Vilchis - 02/19/18 16:32> Objective Vital signs: Temp Pulse Resp BP Pulse Ox 98.1 F 84 18 86/48 92 L 02/19/18 07:40 02/19/18 08:00 02/19/18 08:00 02/19/18 07:40 02/19/18 08:00 <Saeid Rose - 02/26/18 16:38> Temp Pulse Resp BP Pulse Ox 98.1 F 84 18 86/48 92 L 02/19/18 07:40 02/19/18 08:00 02/19/18 08:00 02/19/18 07:40 02/19/18 08:00 <Keaton Vilchisa - 02/19/18 16:32> Narrative: - Constitutional no acute distress, obese - *Routine HEENT Exam Head: Present: normocephalic, atraumatic Eye: Present: PERRL. Absent: conjunctival icterus, scleral injection ENT: Present: mucous membranes moist, oropharynx clear - *Routine Neck Exam Present: supple. Absent: carotid bruit, lymphadenopathy, thyromegaly - Routine Chest/Breast/Axilla Exam Chest wall: Absent: tenderness - *Routine Respiratory Exam Present: CTA bilaterally (Anteriorly and posteriorly) - *Routine Cardiovascular Exam Present: RRR - *Routine Abdominal Exam Present: soft, normoactive bowel sounds. Absent: tenderness Comments: Obese - *Routine Extremities Exam Absent: edema, calf tenderness - *Routine Neurological Exam Absent: altered mental status Almost constant movement of mouth and tongue. <Shantel Vilchis - 02/19/18 16:32> Results Labs on day of discharge: Labs from last 24 hours 02/19/18 02/19/18 02/19/18 05:00 05:00 05:00 WBC 7.8 RBC 4.36 Hgb 12.6 D Hct 41.0 MCV 93.8 MCH 28.7 MCHC 30.6 L RDW 12.5 Plt Count 339 MPV 6.7 L Neut % (Auto) 46.6 Lymph % (Auto) 37.9 [place] % (Auto) 7.6 Eos % (Auto) 6.3 Baso % (Auto) 1.6 Neut # (Auto) 3.6 Lymph # (Auto) 2.9 [place] # (Auto) 0.6 Eos # (Auto) 0.5 H Baso # (Auto) 0.1 Sodium 139 Potassium 3.9 Chloride 103 Carbon Dioxide 30 Anion Gap 9.9 BUN 10 Creatinine 0.68 Estimated Creat Clear 163 Estimated GFR 89 Est GFR ( Amer) 107 Glucose 115 H Calcium 8.8 Magnesium 1.8 Total Bilirubin Direct Bilirubin Indirect Bilirubin AST ALT Alkaline Phosphatase Troponin I < 0.02 Total Protein Albumin Triglycerides 147 Cholesterol 168 LDL Cholesterol 103 VLDL Cholesterol 29 HDL Cholesterol 36 Cholesterol/HDL Ratio 4.7 H Amylase Lipase 02/19/18 02/18/18 02/18/18 01:50 22:56 20:05 WBC RBC Hgb Hct MCV MCH MCHC RDW Plt Count MPV Neut % (Auto) Lymph % (Auto) [place] % (Auto) Eos % (Auto) Baso % (Auto) Neut # (Auto) Lymph # (Auto) [place] # (Auto) Eos # (Auto) Baso # (Auto) Sodium 132 L Potassium 4.1 Chloride 100 Carbon Dioxide 30 Anion Gap 6.1 BUN 9 Creatinine 0.66 Estimated Creat Clear 164 Estimated GFR 92 Est GFR ( Amer) 111 Glucose 105 Calcium 9.1 Magnesium Total Bilirubin 0.6 Direct Bilirubin 0.1 Indirect Bilirubin 0.5 AST 54 H ALT 69 Alkaline Phosphatase 145 H Troponin I < 0.02 < 0.02 < 0.02 Total Protein 7.5 Albumin 3.4 Triglycerides Cholesterol LDL Cholesterol VLDL Cholesterol HDL Cholesterol Cholesterol/HDL Ratio Amylase 21 L Lipase 77 02/18/18 20:05 WBC 9.6 RBC 4.86 Hgb 14.1 Hct 45.4 MCV 93.4 MCH 29.0 MCHC 31.1 L RDW 12.4 Plt Count 405 MPV 6.7 L Neut % (Auto) 56.4 Lymph % (Auto) 29.8 [place] % (Auto) 8.2 Eos % (Auto) 4.5 Baso % (Auto) 1.1 Neut # (Auto) 5.4 Lymph # (Auto) 2.9 [place] # (Auto) 0.8 Eos # (Auto) 0.4 Baso # (Auto) 0.1 Sodium Potassium Chloride Carbon Dioxide Anion Gap BUN Creatinine Estimated Creat Clear Estimated GFR Est GFR ( Amer) Glucose Calcium Magnesium Total Bilirubin Direct Bilirubin Indirect Bilirubin AST ALT Alkaline Phosphatase Troponin I Total Protein Albumin Triglycerides Cholesterol LDL Cholesterol VLDL Cholesterol HDL Cholesterol Cholesterol/HDL Ratio Amylase Lipase <Shantel Vilchis - 02/19/18 16:32> DS: Diagnosis - Discharge Diagnosis (1) Chest pain Status: Acute (2) HTN (hypertension) Status: Chronic (3) Hyperlipemia Status: Chronic (4) Anxiety Status: Chronic (5) Depression Status: Chronic (6) GERD (gastroesophageal reflux disease) Status: Chronic <Shantel Vilchis - 02/19/18 16:29> (1) Chest pain Status: Acute (2) HTN (hypertension) Status: Chronic (3) Hyperlipemia Status: Chronic (4) Anxiety Status: Chronic (5) Depression Status: Chronic (6) GERD (gastroesophageal reflux disease) Status: Chronic <Saeid Rose - 02/26/18 16:38> Discharge Plan - Patient Discharge Instructions ACTIVITY: Continue current activity <Shantel Vilchis - 02/19/18 16:32> DIET: continue same diet <DengShantel - 02/19/18 16:32> Patient Instructions: Angina <Saeid Rose - 02/26/18 16:38> Forms: <Saeid Rose - 02/26/18 16:38> - Follow up Plan Follow up with: Valente Matos JR, MD [Primary Care Provider] - 1 week < Saeid Rose Diego - 02/26/18 16:38> Disposition: Home, Self-Care <Saeid Rose Diego - 02/26/18 16:38> Home Medications: Home Medications Medication Instructions Recorded Confirmed Type acetaminophen 300 mg-codeine 30 mg 1 tab PO Q6H PRN 12/13/17 02/18/18 History tablet aspirin 81 mg chewable tablet 81 mg PO DAILY 12/13/17 02/18/18 History calcium carbonate 200 mg calcium 200 mg PO DAILY tab 12/13/17 02/18/18 History (500 mg) chewable tablet diazepam 5 mg tablet 10 mg PO TID 12/13/17 02/18/18 History diclofenac sodium 25 mg 25 mg PO TID 12/13/17 02/18/18 History tablet,delayed release furosemide 20 mg tablet 20 mg PO DAILY 12/13/17 02/18/18 History metoprolol tartrate 25 mg tablet 25 mg PO BID 12/13/17 02/18/18 History mometasone-formoterol HFA 100 2 puff INHALATION BID 12/13/17 02/18/18 History mcg-5 mcg/actuation aerosol inhaler multivitamin tablet 1 tab PO QAM 12/13/17 02/18/18 History ropinirole 1 mg tablet 1 mg PO DAILY 12/13/17 02/18/18 History Amitriptyline HCl [Elavil 50mg 100 mg PO HS 02/18/18 02/19/18 History tablet] Pantoprazole Sodium [Protonix 20mg 20 mg PO BID 02/19/18 02/19/18 History Tab] Pravastatin Sodium [Pravachol 40mg 40 mg PO HS 02/19/18 02/19/18 History Tablet] Quinapril HCl 60 mg PO DAILY 02/19/18 02/19/18 History Tamsulosin HCl [Flomax 0.4mg 0.4 mg PO HS 02/19/18 02/19/18 History capsule] Venlafaxine HCl 75 mg PO BID 02/19/18 02/19/18 History <Saeid Rose - 02/26/18 16:38> Prescriptions/Medication Reconciliation: Continue calcium carbonate 200 mg calcium (500 mg) chewable tablet 200 mg PO DAILY tab metoprolol tartrate 25 mg tablet 25 mg PO BID ropinirole 1 mg tablet 1 mg PO DAILY aspirin 81 mg chewable tablet 81 mg PO DAILY furosemide 20 mg tablet 20 mg PO DAILY diazepam 5 mg tablet 10 mg PO TID diclofenac sodium 25 mg tablet,delayed release 25 mg PO TID acetaminophen 300 mg-codeine 30 mg tablet 1 tab PO Q6H PRN PRN Reason: pain mometasone-formoterol HFA 100 mcg-5 mcg/actuation aerosol inhaler 2 puff INHALATION BID multivitamin tablet 1 tab PO QAM Pravastatin Sodium [Pravachol 40mg Tablet] 40 mg PO HS Venlafaxine HCl 75 mg PO BID Quinapril HCl 60 mg PO DAILY Amitriptyline HCl [Elavil 50mg tablet] 100 mg PO HS Tamsulosin HCl [Flomax 0.4mg capsule] 0.4 mg PO HS Pantoprazole Sodium [Protonix 20mg Tab] 20 mg PO BID <Saeid Rose - 02/26/18 16:38> Other Amb Orders: CA Stress Test Req by /Javier Location: None Selected < Saeid Rose - 02/26/18 16:38> - Additional Information Additional Information: Concur with plan for discharge as outlined above. <Saeid Rose - 02/26/18 16:38>
--- NOTE | 2018-02-21 13:35 | Cardiology Report ---
PROCEDURE: 2-D M-mode and color Doppler study INDICATIONS FOR THE TEST: Chest pain COPD Heart Murmur Tobacco Smoking Palpitations Fatigue Syncope Edema Hypertension+Diabetes Mellitus Rheumatic Fever SOB WILL Obesity Hyperlipidemia+ Family History HD Additional History PATIENT INFORMATION HEIGHT: 65 WEIGHT:250 GENDER: Female B/P:250 2-D/M-MODE INTERPRETATION: 2-D MEASUREMENTS OBSERVED VALUES IN CMS Right Ventricular Dimension (RVDd) 2.6 Interventricular Septum (Thickness)(IVsd) 1.3 Left Ventricular Internal Dimensions(LVIDd) 4.5 Left Ventricular Posterior Wall (Thickness)(LVPWd) 0.8 Aortic Root 3.2 Aortic Cusp Separation 1.7 Left Atrial Dimensions (LAD) 3.8 2D 1. Left atrium is mildly enlarged, left ventricle is normal size, there is mild concentric left ventricular hypertrophy, visually estimated ejection fraction 55% with no obvious regional wall motion abnormality. 2. The right atrium and right ventricle are normal size and contractility. 3. The aortic valve is minimally thickened and fibrosed. 4. The mitral and tricuspid valve are structurally normal. 5. The pulmonic valve is poorly visualized. 6. No significant pericardial effusion noted. DOPPLER INTERROGATION: Doppler interrogation of the aortic, mitral and tricuspid valvular presence of mild aortic, mild mitral and tricuspid regurgitation. Tricuspid regurgitant jet velocity is insufficient for calculation of the right ventricular systolic pressure, grade 1 diastolic dysfunction seen with tissue Doppler Evidence of raised left atrial pressure. Conclusion 1. Mildly enlarged left atrium, normal left ventricular size, mild concentric left ventricular hypertrophy, visually estimated ejection fraction 55% with no obvious regional wall motion abnormality, grade 1 diastolic dysfunction seen with tissue Doppler evidence of raised left atrial pressure. 2. Mild aortic, mild mitral and tricuspid regurgitation 3. No significant pericardial effusion noted.
== END 2018-02-19 12:13 | disposition home or self-care (01) ==
LOC: 2ND 19:54 → ER 19:54 → 2ND 23:41
PROVIDERS: ADMIT Family Medicine; ATTEND Family Medicine

== ENCOUNTER → 2018-02-26 06:09 | Outpatient (CLI) | payer OTHER, SELFPAY ==
--- NOTE | 2018-02-26 06:11 | NM_ITS ---
History and Indications: Obesity, hypertension, hyperlipidemia, family history, chest pain and shortness of breath Procedure: Patient received a 0.4 mg of Lexiscan, resting heart rate was 80 bpm, resting blood pressure 139/79, with Lexiscan maximum heart rate achieved was 95 bpm which is less than 85% of the maximum predicted heart rate and a blood pressure was 124/69. With Lexiscan patient complained of chest heaviness and shortness of breath Electrocardiogram: Resting electrocardiogram showed sinus rhythm, with Lexiscan there is less than 1.[address] segment depression noted from the baseline EKG. The EKG portion of the Lexiscan Myoview is nondiagnostic. Cardiac stress and resting SPECT images: Cardiac stress and rest SPECT images were obtained using technetium 99 Myoview 9.6 mCi at rest and 10.3 mCi at rest, gated SPECT further analysis of segmental wall motion and calculation of the ejection fraction also done. Cardiac stress and rest SPECT images show a mild fixed defect in the anterior wall with normal contractility in the gated SPECT is likely secondary to soft tissue attenuation, no reversible ischemia seen, computer derived ejection fraction is over 65% with no obvious regional wall motion abnormality, right ventricle is normal size and contractility. Conclusion: 1. The EKG portion of the Lexiscan Myoview is nondiagnostic. 2. No obvious scintigraphic evidence of reversible ischemia seen, computer derived ejection fraction is over 65% with no obvious regional wall motion abnormality, right ventricle is normal size and contractility. 3. Normal Lexiscan Myoview study.
--- NOTE | 2018-02-26 07:13 | HMH.ITSHM ---
DIAZEPAM TYLENOL 3 PRAVASTATIN FUROSEMIDE METOPROLOL ROPINIROLE REQUIP PROTONIX AMITRIPTYLINE MULTIVITAMIN DICLOFENAC ASA VENALAFAXINE TAMSULOSIN
== END ==
PROVIDERS: PCP Family Medicine; Visit Provider Internal Medicine
DX: R07.9 Chest pain, unspecified (principal); K21.9 Gastro-esophageal reflux disease without esophagitis; F32.9 Major depressive disorder, single episode, unspecified; F41.9 Anxiety disorder, unspecified; E78.5 Hyperlipidemia, unspecified; I10 Essential (primary) hypertension
CPT/HCPCS: 78452; 93017; A9502; J2785

== ENCOUNTER 2020-01-14 11:49 | Observation (INO) | payer MEDICARE, SELFPAY ==
[2020-01-14] VITALS (11 sets, daily range): BP systolic 101–158; BP diastolic 66–83; PULSE 73–82; RESP 18–20; TEMP 36.7–37.8; O2SAT 93–99; BMI 43.5; BMI 43.2
--- NOTE | 2020-01-14 11:49 | ECG_ITS ---
APPROVED REPORT Exam: Resting ECG HR:77 bpm ECG Measurements Heart Rate 77 AXES NC 156 P 74 QRSd 86 QRS 12 QT 394 T 0 QTc 445 <Conclusion> Normal sinus rhythm Nonspecific ST-T abnormalities Abnormal ECG Electronically signed by : Kenneth Herzog, 01/14/2020 17:30:10
--- NOTE | 2020-01-14 11:51 | HMH.EDGENADL ---
ED Disposition Clinical Impression: Chest pain, precordial Disposition: Admitted as Observation Condition on Discharge: Good - Critical Care Critical Care Time: No Attestation: On , the high probability of a clinically significant, sudden or life threatening deterioration of the following system(s) required my full and direct attention, intervention and personal management. The time I documented below is in addition to time spent performing reported procedures but includes the following listed in this critical care notation. Medical Decision Making - Arthur Inquiry Pt receiving controlled substance: No Vital Signs: 01/14/20 11:50 01/14/20 12:02 01/14/20 12:09 Temperature 100.1 F H Temperature Source Oral Pulse Rate Pulse Rate [Left Radial] 82 73 78 Respiratory Rate 18 Blood Pressure Blood Pressure [Right Arm] 115/73 124/73 101/72 L Blood Pressure Mean [Right Arm] 87 90 81 Blood Pressure Source Blood Pressure Position Blood Pressure Position [Right Arm] Sitting Sitting Sitting 02 Sat by Pulse Oximetry 98 99 99 Oxygen Delivery Method Nasal Cannula Nasal Cannula Nasal Cannula Oxygen Flow Rate (LPM) 2 2 2 01/14/20 12:30 01/14/20 13:00 01/14/20 15:21 Temperature 98.6 F Temperature Source Oral Pulse Rate 77 Pulse Rate [Left Radial] 77 73 Respiratory Rate 18 Blood Pressure 129/78 Blood Pressure [Right Arm] 105/66 L 104/66 L Blood Pressure Mean [Right Arm] 79 78 Blood Pressure Source Automatic Cuff Blood Pressure Position Sitting Blood Pressure Position [Right Arm] Sitting Sitting 02 Sat by Pulse Oximetry 96 94 L Oxygen Delivery Method Nasal Cannula Room Air Oxygen Flow Rate (LPM) 2 - Lab Data Lab Results 01/14/20 12:00: WBC 7.8, RBC 4.80, Hgb 14.2, Hct 43.8, MCV 91.4, MCH 29.7, MCHC 32.5, RDW 14.1, Plt Count 398, MPV 7.2 L, Neut % (Auto) 55.1, Lymph % (Auto) 27.8, [place] % (Auto) 9.3, Eos % (Auto) 5.1, Baso % (Auto) 2.7 H, Neut # (Auto) 4.3, Lymph # (Auto) 2.2, [place] # (Auto) 0.7, Eos # (Auto) 0.4, Baso # (Auto) 0.2 01/14/20 12:00: Sodium 140, Potassium 3.9, Chloride 100, Carbon Dioxide 34 H, Anion Gap 9.9, BUN 11, Creatinine 0.60, Estimated Creat Clear 57, Estimated GFR 102, Est GFR ( Amer) 123, Glucose 106 H, Calcium 9.7, Troponin I < 0.01 Result diagrams: 01/14/20 12:00 01/14/20 12:00 Orders (Tests/Meds): ED MEDICATIONS Discontinued Medications Generic Name Dose Route Start Last Admin Trade Name Freq PRN Reason Stop Dose Admin Acetaminophen 650 mg 01/14/20 13:18 01/14/20 13:36 Acetaminophen 325mg Tab PO 01/14/20 13:19 650 mg ONCE ONE Administration Nitroglycerin 0.4 mg 01/14/20 11:57 01/14/20 12:03 Nitrostat 0.4mg Sl Tablet SL 01/14/20 11:58 0.4 mg ONCE ONE Administration ORDERS Category Date Time Status Troponin I Q3H Lab 01/14/20 15:33 Received Troponin I Q3H Lab 01/14/20 18:00 Ordered - Radiology Data #1 Image(s): Chest Image Reviewed: Yes I reviewed the patient's radiology image, Yes I have reviewed radiologist's interpretation Preliminary Findings: Normal/NAD - ECG Data Tracing #1 EKG interpreted by Rolo Hernandez MD: Rhythm: sinus Rate: 77 [place]: normal Ectopy: none Conduction: normal ST Segment Changes: none T Wave Changes: none Q Waves: none No evidence of acute ischemia or injury Baseline artifact present - Physician Consults Physician Consulted: YANIQUE Morrell for Dr. Parsons Time: 13:34 Reason -: Cardiology Eval/Care Comment/Response: Discussed case, she will see the patient in the emergency room. 2:30 PM: Seen by Porsche. Cardiology recommends admission, cardiac cath in the morning. Patient agreeable. Additional Consult: Hakan Time: 14:38 Reason -: Admission Comment/Response: Agrees to admit the patient to the hospital. We discussed the patient's clinical information, including history, exam, laboratory and radiology results and ED course. Per hospital procedure,
--- NOTE | 2020-01-14 11:56 | XR_ITS ---
PROCEDURE: XR CHEST PORTABLE CLINICAL HISTORY: chest pain COMPARISON: CXR CHEST(2 VIEWS-NOT PORTABLE) from 02/02/2017 CXR2V XR chest 2V from 02/18/2018 XR CHEST PORTABLE from 04/08/2019 FINDINGS: The cardiomediastinal silhouette and pulmonary vascularity are within normal limits. The lungs are clear without infiltrates, suspicious nodules, or pleural effusions. No acute bony abnormalities. IMPRESSION: No acute findings. Dictated by: Terrence Shaffer MD 01/14/2020 12:43 Electronically signed by Terrence Shaffer MD in [place] 01/14/2020 12:43
--- NOTE | 2020-01-14 12:08 | PC.NURSE ---
pt states no relief of pain with nitro
[2020-01-14 12:17] LABS: Basophils # 0.2 K/mm3 (0-0.2); Basophils % 2.7 % (0.1-2.0); Eosinophils # 0.4 K/mm3 (0.0-0.4); Eosinophils % 5.1 % (0.1-12.0); Hematocrit 43.8 % (37.0-47.0); Hemoglobin 14.2 g/dL (12.2-16.2); Lymphocytes # 2.2 K/mm3 (0.7-4.5); Lymphocytes % 27.8 % (10-50); Mean Corpuscular HGB Conc 32.5 g/dL (31.8-35.4); Mean Corpuscular Hemoglobin 29.7 pg (27.0-31.2); Mean Corpuscular Volume 91.4 fl (81-99); Mean Platelet Volume 7.2 fl (7.4-10.4); Monocytes # 0.7 K/mm3 (0.1-1.0); Monocytes % 9.3 % (1.7-9.3); Neutrophils # 4.3 K/mm3 (1.8-7.8); Neutrophils % 55.1 % (37.0-80.0); Platelet Count 398 K/mm3 (142-424); Red Cell Distribution Width 14.1 % (11.5-17.5); White Blood Count 7.8 K/mm3 (4.8-10.8)
[2020-01-14 12:20] LABS: Chloride 100 mmol/L (98-107); Potassium 3.9 mmoL/L (3.5-5.1); Sodium 140 mmol/L (136-145)
[2020-01-14 12:23] LABS: Anion Gap 9.9 mEq/L (5-15); Blood Urea Nitrogen 11 mg/dl (7-17); Carbon Dioxide 34 mmol/L (22.0-30.0); Creatinine Clearance Estimated 57 mL/min (50-200); Estimated Glomerular Filt Rate 102 ml/min (>60); GFR (African American) 123 ML/MIN (>60)
[2020-01-14 12:24] LABS: Calcium 9.7 mg/dl (8.4-10.2); Glucose 106 mg/dl (74-100)
--- NOTE | 2020-01-14 12:36 | XR_ITS ---
PROCEDURE: XR CHEST 2V CLINICAL HISTORY: cp, fever COMPARISON: CXR2V XR chest 2V from 02/18/2018 XR CHEST PORTABLE from 04/08/2019 XR CHEST PORTABLE from 01/14/2020 FINDINGS: The cardiomediastinal silhouette and pulmonary vascularity are within normal limits. No lobar consolidation or collapse is evident. There is overall increased density of the right lung compared to the left probably related to patient positioning. No acute bony abnormalities. IMPRESSION: No acute findings. Dictated by: Terrence Shaffer MD 01/14/2020 14:27 Electronically signed by Terrence Shaffer MD in [place] 01/14/2020 14:27
[2020-01-14 12:37] LABS: Troponin I < 0.01 ng/ml (0.00-0.034)
--- NOTE | 2020-01-14 13:28 | PC.NURSE ---
DR BIANCHI SPEAKING WITH MANJULA IN THE CARDIOLOGY OFFICE
--- NOTE | 2020-01-14 14:20 | PC.NURSE ---
EDGAR Frey BS
--- NOTE | 2020-01-14 14:23 | HMH.CNCARD ---
History of Present Illness Consult date: 01/14/20 Requesting physician: Rolo Hernandez Consult reason: chest pain Chief complaint: CHEST PAIN Additional Medical History:: 1. HTN 2. HLD 3. GERD. 4. anxiety 5. arthritis History of present illness: This is a 59-year-old white female who presented to the emergency department via ambulance for chest pain. The patient complains of substernal pressure and heaviness. She states that this radiates through to her left shoulder area. She states that this is a severe 9 out of 10 pain. The patient states the pain woke her up from her sleep this morning. Nothing worsened or improve the pain. She states that it was associated with shortness of breath, clamminess and diaphoresis. She states that she does feel nauseous sometimes. The patient states that when she got to the emergency department she did start to feel better. She rates her chest pain about a 6 out of 10 at this time. Her first troponin is negative. Her EKG is unremarkable. The patient does have known hypertension and hyperlipidemia. She denies diabetes or tobacco use. She states that her father's entire side of the family has a lot of heart disease and MIs. The patient denies fever, chills, nausea, vomiting, diarrhea, PND, orthopnea or cough [facility] History I have reviewed the patient's past medical history: Yes Medical History: Reports:: Anxiety, Arrhythmia, Depression, Gastroesophageal Reflux Disease(GERD), Heart Murmur, Hyperlipidemia, Hypertension Denies:: Atherosclerotic Heart Disease, Cancer, Congestive Heart Failure, Chronic Obstructive Pulmonary Disease (COPD), Diabetes Mellitus Type 1, Diabetes Mellitus Type 2, MRSA *Have you ever received a pneumonia vaccine?: Yes *Have you received a flu vaccine this season?: Yes Other Medical History: Reports: Arthritis, Cataracts, Fibromyalgia Laterality Cases: Left: Arthroscopy Knee, Bilateral: Carpal Tunnel Release Other Surgeries: Yes: Appendectomy, Cholecystectomy, Hysterectomy-Total Amputation: No Fractures: No - *Social History Smoking Status: Never smoker Alcohol Intake: never Alcohol Intake Frequency:: holidays/special occasions only *Occupational Status:: other Housing: other Household Members: spouse, family *Travel in the last 8 weeks: None - Psychiatric History Pschychiatric History:: Reports:: Anxiety, Depression Family Hx:: Stroke, Heart Attack, Coronary Artery Disease Meds Home Medications Medication Instructions Recorded Confirmed Type acetaminophen 300 mg-codeine 30 mg 1 tab PO Q6H PRN 12/13/17 01/14/20 History tablet aspirin 81 mg chewable tablet 81 mg PO DAILY 12/13/17 01/14/20 History diazepam 5 mg tablet 10 mg PO TID 12/13/17 01/14/20 History furosemide 20 mg tablet 20 mg PO DAILY 12/13/17 01/14/20 History metoprolol tartrate 25 mg tablet 25 mg PO BID 12/13/17 01/14/20 History mometasone-formoterol HFA 100 2 puff INHALATION BID 12/13/17 01/14/20 History mcg-5 mcg/actuation aerosol inhaler ropinirole 1 mg tablet 1 mg PO DAILY 12/13/17 01/14/20 History Amitriptyline HCl [Elavil 50mg 100 mg PO HS 02/18/18 01/14/20 History tablet] Pantoprazole Sodium [Protonix 20mg 20 mg PO BID 02/19/18 01/14/20 History Tab] Venlafaxine HCl 75 mg PO BID 02/19/18 01/14/20 History Amlodipine Besylate [Amlodipine 5 mg PO DAILY 01/14/20 01/14/20 History 5mg tab] Hydralazine HCl [Hydralazine HCl 75 mg PO DAILY 01/14/20 01/14/20 History 25mg Tablet] Allergies Allergy/AdvReac Type Severity Reaction Status Date / Time diphenhydramine Allergy Unknown AGITATION Verified 02/18/18 20:13 [From BENADRYL] oxycodone [From PERCOCET] Allergy Unknown Verified 02/18/18 20:13 promethazine [From PHENERGAN] Allergy Unknown AGITATION Verified 02/18/18 20:13 sumatriptan [From IMITREX] Allergy Unknown Verified 02/18/18 20:13 Review of Systems - Review of Systems Review of systems:: pertinent systems reviewed and negative unless documented below - Con
--- NOTE | 2020-01-14 14:35 | PC.NURSE ---
CELESTINE MCKEON speaking with Dr. Mcclendon who is certified medical transcriptionist for Dr. Rose (service MD)
--- NOTE | 2020-01-14 15:16 | PC.NURSE ---
report called to cynthia gomez rn on second floor
[2020-01-14 16:00] LABS: Troponin I < 0.01 ng/ml (0.00-0.034)
--- NOTE | 2020-01-14 16:09 | P.CONPHA_ITS ---
[facility] Pharmacy VTE Monitoring - Patient Demographics Admission date: 01/14/20 Report Date: 01/14/20 Time: 16:09 Allergies/Adverse Reactions: Patient Allergies diphenhydramine [From BENADRYL] Allergy (Unknown, Verified 02/18/18 20:13) AGITATION oxycodone [From PERCOCET] Allergy (Unknown, Verified 02/18/18 20:13) promethazine [From PHENERGAN] Allergy (Unknown, Verified 02/18/18 20:13) AGITATION sumatriptan [From IMITREX] Allergy (Unknown, Verified 02/18/18 20:13) Height: 1.7 m Weight: 125.191 kg Patient Problems: Current Active Problems Chest pain, precordial (Acute) Angina at rest (Acute) Angina pectoris (Acute) Family history of ischemic heart disease (Chronic) - VTE Risk Labs: VTE Related Lab Results Hgb 14.2 g/dL (12.2-16.2) 01/14/20 12:00 Hct 43.8 % (37.0-47.0) 01/14/20 12:00 Plt Count 398 K/mm3 (142-424) 01/14/20 12:00 BUN 11 mg/dl (7-17) 01/14/20 12:00 Creatinine 0.60 mg/dl (0.52-1.04) 01/14/20 12:00 Estimated Creat Clear 57 mL/min (50-200) 01/14/20 12:00 - Prophylaxis VTE Prophylaxis Ordered?: Yes Types of VTE Prophylaxis: IPCS Thigh High Location of Applied Device: Bilateral Lower Extremeties
--- NOTE | 2020-01-14 16:30 | HMH.HP ---
*Admission Date: 01/14/20 *Chief complaint: chest pain *History of present illness: This is a 59-year-old white female who presented to the emergency department via ambulance for chest pain. The patient complains of substernal pressure and heaviness. She states that this radiates through to her left shoulder area. She states that this is a severe 9 out of 10 pain. The patient states the pain woke her up from her sleep this morning. Nothing worsened or improve the pain. She states that it was associated with shortness of breath, clamminess and diaphoresis. She states that she does feel nauseous sometimes. The patient states that when she got to the emergency department she did start to feel better. She rates her chest pain about a 6 out of 10 at this time. Her first troponin is negative. Her EKG is unremarkable. The patient does have known hypertension and hyperlipidemia. She denies diabetes or tobacco use. She states that her father's entire side of the family has a lot of heart disease and MIs. The patient denies fever, chills, nausea, vomiting, diarrhea, PND, orthopnea or cough. (the above as per Porsche Mir) [facility] History I have reviewed the patient's past medical history: Yes Medical History: Reports:: Anxiety, Arrhythmia, Depression, Gastroesophageal Reflux Disease(GERD), Heart Murmur, Hyperlipidemia, Hypertension Denies:: Atherosclerotic Heart Disease, Cancer, Congestive Heart Failure, Chronic Obstructive Pulmonary Disease (COPD), Diabetes Mellitus Type 1, Diabetes Mellitus Type 2, MRSA *Have you ever received a pneumonia vaccine?: No *Have you received a flu vaccine this season?: Yes Other Medical History: Reports: Arthritis, Cataracts, Fibromyalgia Laterality Cases: Left: Arthroscopy Knee, Total Knee Replacement, Bilateral: Carpal Tunnel Release Other Surgeries: Yes: Appendectomy, Cholecystectomy, Hysterectomy-Total, Other (Cataract removal) Amputation: No Fractures: No - *Social History Educational Level: Completed High School Smoking Status: Never smoker Alcohol Intake: never Alcohol Intake Frequency:: holidays/special occasions only *Occupational Status:: disabled Housing: house Household Members: spouse, family *Travel in the last 8 weeks: None - Psychiatric History Pschychiatric History:: Reports:: Anxiety, Depression Family Hx:: Cancer, Coronary Artery Disease, Heart Attack, Hyperlipidemia, Hypertension Review of Systems - Constitutional Denies chills, Denies fever(s), Denies weakness - Eyes Denies blurry vision, Denies double vision - ENT Reports dizziness, Denies nasal congestion, Denies sore throat - *Cardiovascular Reports chest pain, Reports shortness of breath, Reports lightheadedness, Reports rapid, pounding, or irregular heartbeat, Reports radiating jaw, neck or arm pain - *Respiratory Denies chest congestion, Denies cough - *Gastrointestinal Denies abdominal pain, Denies loose stools, Denies nausea, Denies vomiting - *Genitourinary Denies difficulty urinating, Denies painful urination - *Musculoskeletal Reports joint pain (left shoulder) - *Neurologic Reports dizziness, Denies headache(s), Denies weakness Meds Home Medications Medication Instructions Recorded Confirmed Type acetaminophen 300 mg-codeine 30 mg 1 tab PO Q6H PRN 12/13/17 01/14/20 History tablet aspirin 81 mg chewable tablet 81 mg PO DAILY 12/13/17 01/14/20 History diazepam 5 mg tablet 10 mg PO TID 12/13/17 01/14/20 History furosemide 20 mg tablet 20 mg PO DAILY 12/13/17 01/14/20 History metoprolol tartrate 25 mg tablet 50 mg PO BID 12/13/17 01/14/20 History mometasone-formoterol HFA 100 2 puff INHALATION BID 12/13/17 01/14/20 History mcg-5 mcg/actuation aerosol inhaler Amitriptyline HCl [Elavil 50mg 100 mg PO HS 02/18/18 01/14/20 History tablet] Pantoprazole Sodium [Protonix 20mg 40 mg PO BID 02/19/18 01/14/20 History Tab] Venlafaxine HCl 75 mg PO BID 02/19/18 01/14/20 History Amlodipine Besylate [Aml
--- NOTE | 2020-01-14 19:12 | PC.NURSE ---
report given to luigi
[2020-01-14 19:25] LABS: Troponin I < 0.01 ng/ml (0.00-0.034)
[2020-01-14 20:08] LABS: D-Dimer 162 ng/mL (0-400)
--- NOTE | 2020-01-14 22:45 | PC.NURSE ---
PT REPORTED CONSTANT PAIN OF 8/10 IN CHEST RADIATING TO SHOULDER BLADE. ACETAMINOPHEN W CODEINE ADMINISTERED. ON REASSESSMENT PT REPORTED PAIN 7/10 AND TOLERABLE. PT RESTING IN BED. CALL LIGHT WITHIN REACH. BED IN LOWEST POSITION.
[2020-01-15] VITALS (23 sets, daily range): BP systolic 109–151; BP diastolic 65–91; PULSE 70–96; RESP 15–20; TEMP 36.4–37.1; O2SAT 88–97; BMI 42.9
--- NOTE | 2020-01-15 | IR_ITS ---
APPROVED REPORT Patient Location: Inpatient PROCEDURES Left heart catheterization Left ventriculogram Selective coronary angiogram INDICATION Angina pectoris, Abnormal stress test Informed consent was obtained prior to the procedure. COMPLICATIONS NONE Estimated Blood Loss: LESS THAN 10 ML TECHNIQUE One percent lidocaine used to anesthetize the right anterior aspect of the wrist. The right radial artery was accessed via the Seldinger technique. A 6 Mohawk sheath was placed in the right radial artery. 2.5 mg of verapamil, 800 mcg of nitroglycerin, 1mg Lidocaine and 5000 U Heparin were given through the arterial sheath. The trap catheter was also used to perform left heart catheterization, left ventriculogram and selective coronary angiogram. At the end of the procedure the sheath was removed good hemostasis was achieved using Traclet band, patient was transferred to the postop holding area in stable condition. ANGIOGRAPHIC RESULTS The left main artery Normal The left anterior descending artery Has proximal mild 10% stenosis with remaining vessel normal The circumflex artery Nondominant yet still large caliber with a proximal 10% stenosis The right coronary artery Large dominant normal The CASTELLANO ventriculogram reveals Normal 65% The left ventricular end-diastolic pressure 20 mmHg IMPRESSION Mild [id number] coronary disease Normal ejection fraction Mildly elevated LVEDP PLAN 1. Medical management Electronically signed by : Joe Parsons, 01/27/2020 13:58:48
--- NOTE | 2020-01-15 05:17 | PC.NURSE ---
A&OX4. PT HAS TOLERATED ROOM AIR WELL THROUGHOUT SHIFT. LUNG SOUNDS DIMINISHED THROUGHOUT. RESPIRATIONS REGULAR AND UNLABORED. HEART RATE REGULAR. NSR ON TELEMETRY. NO COUGH NOTED. HAND ELECTRONICS TECHNICIAN APPRENTICE EQUAL. PUPILS BRISK AND REACTIVE TO LIGHT. +2 PULSES NOTED THROUGHOUT. NO EDEMA PRESENT. ACTIVE BOWEL SOUNDS HEARD IN ALL 4 QUADRANTS. PT HAS AN EPISODE OF DIARRHEA AT THE BEGINNING OF SHIFT. PT ALSO COMPLAINED OF CHEST PAIN RADIATING TO HER SHOULDER BLADE RADIATING 8/10. TYLENOL WITH CODEINE ADMINISTERED. ON REASSESSMENT PT STATES PAIN 7/10 AND TOLERABLE. NO COMPLAINTS SINCE THEN. PT RECEIVED SHOWER AND WAS CLIPPED BY WOOD PREPARATION SUPERVISOR IN PREPARATION FOR HEART CATH TODAY. CONSENT SIGNED AND ON CHART. PREOPERATIVE CHECKLIST COMPLETED. PT RESTING COMFORTABLY IN BED. BED IN LOWEST POSITION. CALL LIGHT WITHIN REACH. VSS. NO CONCERNS AT THIS TIME. WILL CONTINUE TO MONITOR.
--- NOTE | 2020-01-15 07:29 | PC.NURSE ---
THIS RN SPOKE WITH DANILO MOREIRA IN ELECTRICAL MANAGER, OKAY TO DOCUMENT PREVIOUS DAY'S LAB RESULTS ON PRE-OPERATIVE CHECKLIST, SINCE THERE ARE NO NEW ORDERS.
--- NOTE | 2020-01-15 09:02 | HMH.ACPN2 ---
Internal Medicine - PN: Subj *Date: 01/15/20 *Time: 09:02 Interval history: The patient was stable through the night. She was states that she was able to get some rest. She is scheduled for cardiac catheterization this morning. Her lungs are much clearer this morning. Her heart has regular rate and rhythm. Exam Vital signs and Labs for Last 24 Hours: Temp Pulse Resp BP Pulse Ox 97.6 F 90 20 142/84 H 92 L 01/15/20 04:00 01/15/20 04:00 01/15/20 04:00 01/15/20 04:00 01/15/20 06:42 Laboratory Results - last 24 hr 01/14/20 12:00: WBC 7.8, RBC 4.80, Hgb 14.2, Hct 43.8, MCV 91.4, MCH 29.7, MCHC 32.5, RDW 14.1, Plt Count 398, MPV 7.2 L, Neut % (Auto) 55.1, Lymph % (Auto) 27.8, [place] % (Auto) 9.3, Eos % (Auto) 5.1, Baso % (Auto) 2.7 H, Neut # (Auto) 4.3, Lymph # (Auto) 2.2, [place] # (Auto) 0.7, Eos # (Auto) 0.4, Baso # (Auto) 0.2 01/14/20 12:00: Sodium 140, Potassium 3.9, Chloride 100, Carbon Dioxide 34 H, Anion Gap 9.9, BUN 11, Creatinine 0.60, Estimated Creat Clear 57, Estimated GFR 102, Est GFR ( Amer) 123, Glucose 106 H, Calcium 9.7, Troponin I < 0.01 01/14/20 12:00: D-Dimer 162 01/14/20 15:33: Troponin I < 0.01 01/14/20 18:38: Troponin I < 0.01 I & O for Last 24 hours: Intake & Output 01/12/20 01/13/20 01/14/20 01/15/20 11:59 11:59 11:59 11:59 Weight 278 lb 273 lb 6 oz - Constitutional no acute distress, morbidly obese - *Routine HEENT Exam Head: Present: normocephalic Eye: Present: PERRL ENT: Present: mucous membranes moist. Absent: dentition normal (Edentulous) - *Routine Respiratory Exam Present: CTA bilaterally (She has cleared with the respiratory treatments.) - *Routine Cardiovascular Exam Present: RRR. Absent: murmur - *Routine Abdominal Exam Present: soft, obese - *Routine Extremities Exam Present: edema (Improved) - *Routine Neurological Exam Present: alert, oriented X3 Assessment and Plan (1) Angina pectoris Current visit: Yes Status: Acute Category: Medical Code(s): I20.9 - Angina pectoris, unspecified (2) Family history of ischemic heart disease Current visit: Yes Status: Chronic Category: Medical Code(s): Z82.49 - Family history of ischemic heart disease and other diseases of the circulatory system (3) HTN (hypertension) Current visit: No Status: Chronic Category: Medical Code(s): I10 - Essential (primary) hypertension (4) Hyperlipemia Current visit: No Status: Chronic Qualifiers: Hyperlipidemia type: unspecified Qualified Code(s): E78.5 - Hyperlipidemia, unspecified Category: Medical Code(s): E78.5 - Hyperlipidemia, unspecified (5) Anxiety Current visit: No Status: Chronic Category: Medical Code(s): F41.9 - Anxiety disorder, unspecified (6) GERD (gastroesophageal reflux disease) Current visit: No Status: Chronic Category: Medical Code(s): K21.9 - Gastro-esophageal reflux disease without esophagitis - Assessment and plan all Dx Assessment and Plan for all problems:: Cardiac catheterization is planned for this morning.
--- NOTE | 2020-01-15 09:44 | HMH.PNCARD ---
Subjective Date: 01/15/20 Time: 09:30 Principal diagnosis: angina Interval history: This is a 59-year-old white female who came into the hospital with chest pain. The patient is having classic angina symptoms. She states that her chest pain is still present but slightly better than yesterday. She rates the pressure in her chest a 5 out of 10. Is still radiating to her left shoulder. She is still complaining of some nausea and shortness of breath associated with chest pain. She denies any fever, chills, vomiting, diarrhea, PND or orthopnea. Exam Vital signs and Labs for Last 24 Hours: Temp Pulse Resp BP Pulse Ox 98.2 F 86 15 151/91 H 95 01/15/20 08:00 01/15/20 08:00 01/15/20 08:00 01/15/20 08:00 01/15/20 08:00 Laboratory Results - last 24 hr 01/14/20 12:00: WBC 7.8, RBC 4.80, Hgb 14.2, Hct 43.8, MCV 91.4, MCH 29.7, MCHC 32.5, RDW 14.1, Plt Count 398, MPV 7.2 L, Neut % (Auto) 55.1, Lymph % (Auto) 27.8, [place] % (Auto) 9.3, Eos % (Auto) 5.1, Baso % (Auto) 2.7 H, Neut # (Auto) 4.3, Lymph # (Auto) 2.2, [place] # (Auto) 0.7, Eos # (Auto) 0.4, Baso # (Auto) 0.2 01/14/20 12:00: Sodium 140, Potassium 3.9, Chloride 100, Carbon Dioxide 34 H, Anion Gap 9.9, BUN 11, Creatinine 0.60, Estimated Creat Clear 57, Estimated GFR 102, Est GFR ( Amer) 123, Glucose 106 H, Calcium 9.7, Troponin I < 0.01 01/14/20 12:00: D-Dimer 162 01/14/20 15:33: Troponin I < 0.01 01/14/20 18:38: Troponin I < 0.01 I & O for Last 24 hours: Intake & Output 01/12/20 01/13/20 01/14/20 01/15/20 23:59 23:59 23:59 23:59 Intake Total 240 / 240 Balance 240 / 240 Weight 276 lb 273 lb 6 oz - Constitutional no acute distress, morbidly obese - *Routine HEENT Exam Head: Present: normocephalic, atraumatic Eye: Present: EOMI, PERRL ENT: Present: mucous membranes moist - *Routine Neck Exam Present: supple, full ROM, normal carotid upstroke. Absent: JVD, carotid bruit, lymphadenopathy - *Routine Respiratory Exam Present: CTA bilaterally - *Routine Cardiovascular Exam Present: RRR, Normal S1, Normal S2. Absent: murmur - *Routine Abdominal Exam Present: soft, normoactive bowel sounds. Absent: tenderness, distended - *Routine Extremities Exam Present: full ROM, pulses intact, normal capillary refill. Absent: cyanosis, clubbing, edema - *Routine Skin Exam Present: intact, warm. Absent: erythema, rash - *Routine Neurological Exam Present: alert, oriented X3, CN II-XII intact. Absent: sensory deficit, motor deficit Progress Note: A&P (1) Angina pectoris Status: Acute Current Visit: Yes (2) Family history of ischemic heart disease Status: Chronic Current Visit: Yes (3) HTN (hypertension) Status: Chronic Current Visit: No (4) Hyperlipemia Status: Chronic Current Visit: No (5) Anxiety Status: Chronic Current Visit: No (6) GERD (gastroesophageal reflux disease) Status: Chronic Current Visit: No Assessment and Plan for All Diagnoses:: Plan: 1. Patient is having typical angina symptoms. She has risk factors for disease. Due to her typical angina, risk factors and family history of ischemic heart disease, we will plan to proceed with left cardiac catheterization today as previously scheduled. Patient educated on risks and benefits of proceeding with left cardiac catheterization. The patient verbalizes understanding and is agreeable in proceeding with the procedure. 2. The patient will remain n.p.o. in preparation for left cardiac catheterization. 3. The patient will get premedications prior to the procedure. 4. Her blood pressure is elevated this morning but was running on the low side follow and make adjustments 5. LDL goal is less than 100. We will get a liver and lipid panel this morning. 6. Further recommendations were made pending the patient's response to treatment and results of her left cardiac catheterization later today. Thank you for the opportunity to help participate in the c
[2020-01-15 10:20] LABS: Bilirubin,Unconjugated 0.5 mg/dL (0.0-1.1)
[2020-01-15 10:21] LABS: Alanine Aminotransferase 69 U/L (12-78); Albumin Level 3.7 g/dl (3.5-5.0); Alkaline Phosphatase 179 U/L (38-126); Aspartate Amino Transferase 144 U/L (14-36); Bilirubin,Direct 0.4 mg/dl (0.0-0.4); Bilirubin,Indirect 0.5 mg/dL (0.0-0.9); Bilirubin,Total 0.9 mg/dl (0.2-1.3); Chol/HDL Ratio 6.5 (1-3.5); Cholesterol 215 mg/dl (140-200); HDL Cholesterol 33 mg/dl (40-60); Total Protein,Serum 7.3 g/dl (6.3-8.2); Triglycerides 126 mg/dl (30-150); VLDL Cholesterol 25 mg/dL (0-40)
[2020-01-15 10:32] LABS: Direct LDL Cholesterol 190.58 mg/dL (100-129)
[2020-01-16] VITALS: BP 113/68; PULSE 70; PULSE 76; RESP 15; TEMP 36.7; O2SAT 91
[2020-01-16 04:00] VITALS: BP 141/80; PULSE 70; PULSE 80; RESP 16; TEMP 36.5; O2SAT 94
[2020-01-16 05:00] VITALS: BMI 42.7
[2020-01-16 06:38] VITALS: O2SAT 91
--- NOTE | 2020-01-16 06:44 | PC.NURSE ---
All care provided by LANCE Handy was under the direct supervision of Primary RN, Nydia Moore.
--- NOTE | 2020-01-16 06:44 | PC.NURSE ---
Pt is A&O and has ambulated to the BR a few times this with staff SBA and pt tolerated well. Pt has c/o pain to right radial cath site 1x, medicated per OCT and pain was resolved on reassessment. Dressing to cath site is C/D/I with good radial pulses. Pt denies any dyspnea or N/V/D. VSS, call light within reach, continue to monitor.
[2020-01-16 08:00] VITALS: BP 121/85; PULSE 85; RESP 18; TEMP 36.8; O2SAT 100
--- NOTE | 2020-01-16 08:05 | HMH.ACPN2 ---
Internal Medicine - PN: Subj *Date: 01/16/20 *Time: 08:05 Interval history: Patient is feeling well this morning. She denies any chest pain or shortness of breath. She states she slept well last night and she is eating a good breakfast this morning. She is anxious to go home. Exam Vital signs and Labs for Last 24 Hours: Temp Pulse Resp BP Pulse Ox 97.7 F 70 16 141/80 H 91 L 01/16/20 04:00 01/16/20 04:00 01/16/20 04:00 01/16/20 04:00 01/16/20 06:38 Laboratory Results - last 24 hr 01/15/20 10:00: Total Bilirubin 0.9, Direct Bilirubin 0.4, Conjugated Bilirubin 0.0, Indirect Bilirubin 0.5, Unconjugated Bilirubin 0.5, AST 144 H, ALT 69, Alkaline Phosphatase 179 H, Total Protein 7.3, Albumin 3.7, Triglycerides 126, Cholesterol 215 H, LDL Cholesterol Direct 190.58 H, VLDL Cholesterol 25, HDL Cholesterol 33 L, Cholesterol/HDL Ratio 6.5 H I & O for Last 24 hours: Intake & Output 01/13/20 01/14/20 01/15/20 01/16/20 11:59 11:59 11:59 11:59 Intake Total 240 / 240 850 / 850 Output Total 400 / 400 1900 / 1900 Balance -160 / -160 -1050 / -1050 Weight 278 lb 273 lb 6 oz 272 lb 6 oz - Constitutional no acute distress - *Routine Respiratory Exam Present: CTA bilaterally - *Routine Cardiovascular Exam Present: RRR - *Routine Abdominal Exam Present: soft, normoactive bowel sounds. Absent: tenderness - *Routine Extremities Exam Present: edema (Trace pretibial edema bilaterally). Absent: cyanosis, clubbing - *Routine Skin Exam Present: warm. Absent: rash - *Routine Neurological Exam Present: alert, oriented X3 Assessment and Plan (1) Angina pectoris Current visit: Yes Status: Acute Category: Medical Code(s): I20.9 - Angina pectoris, unspecified (2) Family history of ischemic heart disease Current visit: Yes Status: Chronic Category: Medical Code(s): Z82.49 - Family history of ischemic heart disease and other diseases of the circulatory system (3) HTN (hypertension) Current visit: No Status: Chronic Category: Medical Code(s): I10 - Essential (primary) hypertension (4) Hyperlipemia Current visit: No Status: Chronic Qualifiers: Hyperlipidemia type: unspecified Qualified Code(s): E78.5 - Hyperlipidemia, unspecified Category: Medical Code(s): E78.5 - Hyperlipidemia, unspecified (5) Anxiety Current visit: No Status: Chronic Category: Medical Code(s): F41.9 - Anxiety disorder, unspecified (6) GERD (gastroesophageal reflux disease) Current visit: No Status: Chronic Category: Medical Code(s): K21.9 - Gastro-esophageal reflux disease without esophagitis - Assessment and plan all Dx Assessment and Plan for all problems:: Cardiology to see patient today. I have spoken with them and the patient did not receive any stents yesterday. Likely discharge today.
--- NOTE | 2020-01-16 08:20 | HMH.PNCARD ---
Subjective Date: 01/16/20 Time: 08:23 Principal diagnosis: angina Interval history: 59 yo WF at bedside eating breakfast in NAD. No complaints overnight. Right wrist looks good with Tegaderm dressing in place. Patient's LDL noted to be 190. Discussed starting statin therapy. Exam Vital signs and Labs for Last 24 Hours: Temp Pulse Resp BP Pulse Ox 97.7 F 70 16 141/80 H 91 L 01/16/20 04:00 01/16/20 04:00 01/16/20 04:00 01/16/20 04:00 01/16/20 06:38 Laboratory Results - last 24 hr 01/15/20 10:00: Total Bilirubin 0.9, Direct Bilirubin 0.4, Conjugated Bilirubin 0.0, Indirect Bilirubin 0.5, Unconjugated Bilirubin 0.5, AST 144 H, ALT 69, Alkaline Phosphatase 179 H, Total Protein 7.3, Albumin 3.7, Triglycerides 126, Cholesterol 215 H, LDL Cholesterol Direct 190.58 H, VLDL Cholesterol 25, HDL Cholesterol 33 L, Cholesterol/HDL Ratio 6.5 H I & O for Last 24 hours: Intake & Output 01/13/20 01/14/20 01/15/20 01/16/20 11:59 11:59 11:59 11:59 Intake Total 240 / 240 850 / 850 Output Total 400 / 400 1900 / 1900 Balance -160 / -160 -1050 / -1050 Weight 278 lb 273 lb 6 oz 272 lb 6 oz - *Routine HEENT Exam Head: Present: normocephalic Eye: Present: EOMI, PERRL ENT: Present: mucous membranes moist - *Routine Respiratory Exam Present: CTA bilaterally. Absent: accessory muscle use, rales, rhonchi, wheezes - *Routine Cardiovascular Exam Present: RRR. Absent: murmur, gallop, rubs - *Routine Neurological Exam Present: alert, oriented X3, moving all extremities Progress Note: A&P (1) Angina pectoris Status: Acute Current Visit: Yes (2) Family history of ischemic heart disease Status: Chronic Current Visit: Yes (3) HTN (hypertension) Status: Chronic Current Visit: No (4) Hyperlipemia Status: Chronic Current Visit: No (5) Anxiety Status: Chronic Current Visit: No (6) GERD (gastroesophageal reflux disease) Status: Chronic Current Visit: No Assessment and Plan for All Diagnoses:: 1. Cardiac cath report not available at this time but report was of [id number] coronary artery disease. Recommend continuing home medications (including aspirin, metoprolol and amlodipine therapy) with the addition of statin therapy (Lipitor 40 mg daily) for elevated cholesterol. Okay for discharge home with follow-up in our office in 1 week.
[2020-01-16 08:43] LABS: Basophils # 0.2 K/mm3 (0-0.2); Basophils % 2.8 % (0.1-2.0); Blood Urea Nitrogen 11 mg/dl (7-17); Calcium 9.8 mg/dl (8.4-10.2); Carbon Dioxide 27 mmol/L (22.0-30.0); Chloride 102 mmol/L (98-107); Creatinine Clearance Estimated 55 mL/min (50-200); Eosinophils # 0.3 K/mm3 (0.0-0.4); Eosinophils % 4.2 % (0.1-12.0); Estimated Glomerular Filt Rate 102 ml/min (>60); GFR (African American) 123 ML/MIN (>60); Glucose 121 mg/dl (74-100); Hematocrit 44.9 % (37.0-47.0); Hemoglobin 14.7 g/dL (12.2-16.2); Lymphocytes # 2.2 K/mm3 (0.7-4.5); Mean Corpuscular HGB Conc 32.8 g/dL (31.8-35.4); Mean Corpuscular Hemoglobin 29.6 pg (27.0-31.2); Mean Corpuscular Volume 90.4 fl (81-99); Mean Platelet Volume 8.2 fl (7.4-10.4); Monocytes # 0.6 K/mm3 (0.1-1.0); Monocytes % 7.7 % (1.7-9.3); Neutrophils # 3.9 K/mm3 (1.8-7.8); Neutrophils % 54.4 % (37.0-80.0); Platelet Count 370 K/mm3 (142-424); Red Blood Count 4.96 M/mm3 (4.20-5.40); Red Cell Distribution Width 14.2 % (11.5-17.5); Sodium 138 mmol/L (136-145); White Blood Count 7.2 K/mm3 (4.8-10.8)
--- NOTE | 2020-01-19 22:49 | HMH.DCSUM ---
General - General Admission date:: 01/14/20 Discharge date: 01/16/20 HPI HPI: This is a 59-year-old white female who presented to the emergency department via ambulance for chest pain. The patient complains of substernal pressure and heaviness. She states that this radiates through to her left shoulder area. She states that this is a severe 9 out of 10 pain. The patient states the pain woke her up from her sleep this morning. Nothing worsened or improve the pain. She states that it was associated with shortness of breath, clamminess and diaphoresis. She states that she does feel nauseous sometimes. The patient states that when she got to the emergency department she did start to feel better. She rates her chest pain about a 6 out of 10 at this time. Her first troponin is negative. Her EKG is unremarkable. The patient does have known hypertension and hyperlipidemia. She denies diabetes or tobacco use. She states that her father's entire side of the family has a lot of heart disease and MIs. The patient denies fever, chills, nausea, vomiting, diarrhea, PND, orthopnea or cough. (the above as per Porsche Mir) Hospital Course Hospital Course: The patient had a chest x-ray showing nothing acute. Cardiology saw the patient and planned a heart cath. She did have some wheezing and DuoNeb's were ordered. A d-dimer was checked and was negative. All of her troponins returned negative. The cardiac catheterization report is still not available, but cardiology reported there was [id number] coronary artery disease. They recommended continuing her home medications with the addition of statin therapy for elevated cholesterol and felt she could be discharged home. Her chest pain resolved and she was discharged home. Objective Vital signs: Temp Pulse Resp BP Pulse Ox 98.3 F 85 18 121/85 100 01/16/20 08:00 01/16/20 08:00 01/16/20 08:00 01/16/20 08:00 01/16/20 08:00 Narrative: - Constitutional no acute distress - *Routine HEENT Exam Head: Present: normocephalic Eye: Present: EOMI, PERRL ENT: Present: mucous membranes moist - *Routine Neck Exam Present: supple. Absent: lymphadenopathy - *Routine Respiratory Exam Present: CTA bilaterally - *Routine Cardiovascular Exam Present: RRR Comments: ttp along the left chest wall and pain with deep breathing - *Routine Abdominal Exam Present: soft, normoactive bowel sounds. Absent: tenderness - *Routine Extremities Exam Present: edema (trace pretibial edema bilaterally). Absent: cyanosis, clubbing - *Routine Skin Exam Present: warm. Absent: rash - *Routine Neurological Exam Present: alert, oriented X3 DS: Diagnosis - Discharge Diagnosis (1) Angina pectoris Status: Acute (2) Family history of ischemic heart disease Status: Chronic (3) HTN (hypertension) Status: Chronic (4) Hyperlipemia Status: Chronic (5) Anxiety Status: Chronic (6) GERD (gastroesophageal reflux disease) Status: Chronic Discharge Plan - Patient Discharge Instructions ACTIVITY: Continue current activity DIET: low fat, low cholesterol Patient Instructions: Heart-Healthy Diet, DI for Cardiac Catheterization, DI for Surgical Site Infection, DI for Chest Pain - Follow up Plan Follow up with: Joe Parsons MD [Staff Physician] - 01/29/20 1:40 pm (appointment with [facility]) Disposition: Home, Self-Halfway Medications: Home Medications Medication Instructions Recorded Confirmed Type acetaminophen 300 mg-codeine 30 mg 1 tab PO Q6H PRN 12/13/17 01/14/20 History tablet aspirin 81 mg chewable tablet 81 mg PO DAILY 12/13/17 01/14/20 History diazepam 5 mg tablet 10 mg PO TID 12/13/17 01/14/20 History furosemide 20 mg tablet 20 mg PO DAILY 12/13/17 01/14/20 History metoprolol tartrate 25 mg tablet 50 mg PO BID 12/13/17 01/14/20 History mometasone-formoterol HFA 100 2 puff INHALATION BID 12/13/17 01/14/20 History mcg-5 mc
== END 2020-01-16 11:45 | disposition home or self-care (01) ==
LOC: ER 14:32 → 2ND 16:50
PROVIDERS: Internal Medicine; Nurse Practitioner Family; Admitting Provider Family Medicine; Emergency Provider Emergency Medicine; PCP Emergency Medicine; Visit Provider Family Medicine
DX: R07.9 Chest pain, unspecified (principal); I25.118 Atherosclerotic heart disease of native coronary artery with other forms of angina pectoris; Z82.49 Family history of ischemic heart disease and other diseases of the circulatory system; I10 Essential (primary) hypertension; Z79.51 Long term (current) use of inhaled steroids; Z79.82 Long term (current) use of aspirin; Z79.899 Other long term (current) drug therapy; K21.9 Gastro-esophageal reflux disease without esophagitis; J45.909 Unspecified asthma, uncomplicated
CPT/HCPCS: 36415; 71045; 71046; 80048; 80061; 80076; 84484; 85025; 85378; 93005; 93458; 94640; 94761; 99152; 99284; C1725; C1769; G0378; J1644; Q9967

== ENCOUNTER 2020-04-29 20:03 | Emergency (ER) | payer MEDICARE, SELFPAY ==
[2020-04-29 20:02] VITALS: BP 147/97; PULSE 88; RESP 18; TEMP 37.2; O2SAT 96; BMI 40.1
--- NOTE | 2020-04-29 20:02 | ECG_ITS ---
APPROVED REPORT Exam: Resting ECG HR:86 bpm ECG Measurements Heart Rate 86 AXES LA 154 P 57 QRSd 82 QRS 10 QT 366 T 7 QTc 437 <Conclusion> Normal sinus rhythm Nonspecific ST abnormality Abnormal ECG Electronically signed by : Aleks Aquino, 05/02/2020 15:02:38
[2020-04-29 20:05] VITALS: BMI 40.3
--- NOTE | 2020-04-29 20:06 | XR_ITS ---
PROCEDURE: XR CHEST 2V CLINICAL HISTORY: chest discomfort radiating into back COMPARISON: CR XR CHEST PORTABLE from 04/08/2019 CR XR CHEST 2V from 01/14/2020 CR XR CHEST PORTABLE from 01/14/2020 FINDINGS: The cardiomediastinal silhouette and pulmonary vascularity are within normal limits. The lungs are clear without infiltrates, suspicious nodules, or pleural effusions. No acute bony abnormalities. IMPRESSION: No acute findings. Dictated by: Terrence Shaffer MD 04/30/2020 05:23 Terrence Shaffer MD in [facility] 04/30/2020 05:23
--- NOTE | 2020-04-29 20:10 | HMH.EDGENADL ---
ED Disposition Clinical Impression: Atypical chest pain Headache Qualifiers: Headache type: unspecified Headache chronicity pattern: acute headache Intractability: not intractable Qualified Code(s): R51 - Headache Disposition: Home, Self-Care Condition on Discharge: Good Instructions: DI for Atypical Chest Pain Additional Instructions: Continue your current home medications. Additional instructions for CHEST PAIN: See your physician as soon as possible for further evaluation. Return immediately if worsening chest pain, vomiting, shortness of breath, fever, coughing of blood. Additional instructions for HEADACHE: See your physician as soon as possible for further evaluation. Return immediately if worsening headache, vomiting, problems with vision or speech, fever, numbness or weakness of the extremities, neck pain or stiffness. Referrals: Provider,Referral, [Referring] - - Critical Care Critical Care Time: No Attestation: On 04/29/20, the high probability of a clinically significant, sudden or life threatening deterioration of the following system(s) required my full and direct attention, intervention and personal management. The time I documented below is in addition to time spent performing reported procedures but includes the following listed in this critical care notation. Medical Decision Making - Medical Records Medical records reviewed: Yes: I reviewed the patient's medical records. MR Comment: Admitted 01/14/2020 through 01/16/2020 for chest pain. Discharge summary reviewed. - Arthur Inquiry Pt receiving controlled substance: No Vital Signs: 04/29/20 20:02 04/29/20 21:14 04/29/20 21:28 Temperature 99.0 F 98.0 F 98.7 F Temperature Source Oral Oral Oral Pulse Rate 74 Pulse Rate [Right Radial] 88 73 Respiratory Rate 18 16 18 Blood Pressure 136/76 Blood Pressure [Right Arm] 147/97 H 148/75 H Blood Pressure Mean [Right Arm] 113 99 Blood Pressure Source Automatic Cuff Blood Pressure Source [Right Arm] Automatic Cuff Automatic Cuff Blood Pressure Position Supine Blood Pressure Position [Right Arm] Supine Sitting 02 Sat by Pulse Oximetry 96 98 Oxygen Delivery Method Room Air Room Air Room Air - Lab Data Lab results reviewed: Yes: I reviewed the patient's lab results. Lab Results 04/29/20 20:15: WBC 7.5, RBC 5.25, Hgb 15.6, Hct 48.4 H, MCV 92.3, MCH 29.8, MCHC 32.3, RDW 13.6, Plt Count 395, MPV 6.6 L, Neut % (Auto) 51.0, Lymph % (Auto) 35.8, [place] % (Auto) 8.3, Eos % (Auto) 3.6, Baso % (Auto) 1.3, Neut # (Auto) 3.8, Lymph # (Auto) 2.7, [place] # (Auto) 0.6, Eos # (Auto) 0.3, Baso # (Auto) 0.1 04/29/20 20:15: Sodium 142, Potassium 4.1, Chloride 101, Carbon Dioxide 33 H, Anion Gap 12.1, BUN 8, Creatinine 0.60, Estimated Creat Clear 106, Estimated GFR 102, Est GFR ( Amer) 123, Glucose 113 H, Calcium 9.9, Troponin I < 0.01 Result diagrams: 04/29/20 20:15 04/29/20 20:15 Orders (Tests/Meds): ED MEDICATIONS Discontinued Medications Generic Name Dose Route Start Last Admin Trade Name Freq PRN Reason Stop Dose Admin Aspirin 243 mg 04/29/20 20:33 04/29/20 20:39 Aspirin 325mg Tablet PO 04/29/20 20:34 Not Given ONCE ONE Aspirin 243 mg 04/29/20 20:36 04/29/20 20:39 Aspirin 81mg Enteric Coated Tablet PO 04/29/20 20:37 Not Given ONCE ONE Aspirin 243 mg 04/29/20 20:38 04/29/20 20:39 Aspirin 81mg Chewable Tablet PO 04/29/20 20:39 243 mg ONCE ONE Administration Ketorolac Tromethamine 30 mg 04/29/20 20:35 04/29/20 20:40 Toradol 30mg/Ml Vial IV 04/29/20 20:36 30 mg ONCE ONE Administration ORDERS Category Date Time Status XR chest 2V Stat Exams 04/29/20 20:06 Taken - Radiology Data #1 Image(s): Chest Image Reviewed: Yes I reviewed the patient's radiology image Preliminary Findings: Normal/NAD - ECG Data Tracing #1 EKG interpreted by Rolo Hernandez MD: Rhythm: sinus Rate: 86 [place]: normal Ecto
[2020-04-29 20:23] LABS: Basophils # 0.1 K/mm3 (0-0.2); Basophils % 1.3 % (0.1-2.0); Eosinophils # 0.3 K/mm3 (0.0-0.4); Eosinophils % 3.6 % (0.1-12.0); Hematocrit 48.4 % (37.0-47.0); Hemoglobin 15.6 g/dL (12.2-16.2); Lymphocytes # 2.7 K/mm3 (0.7-4.5); Lymphocytes % 35.8 % (10-50); Mean Corpuscular HGB Conc 32.3 g/dL (31.8-35.4); Mean Corpuscular Hemoglobin 29.8 pg (27.0-31.2); Mean Corpuscular Volume 92.3 fl (81-99); Mean Platelet Volume 6.6 fl (7.4-10.4); Monocytes # 0.6 K/mm3 (0.1-1.0); Monocytes % 8.3 % (1.7-9.3); Neutrophils # 3.8 K/mm3 (1.8-7.8); Platelet Count 395 K/mm3 (142-424); Red Blood Count 5.25 M/mm3 (4.20-5.40); Red Cell Distribution Width 13.6 % (11.5-17.5); White Blood Count 7.5 K/mm3 (4.8-10.8)
[2020-04-29 20:43] LABS: Chloride 101 mmol/L (98-107); Potassium 4.1 mmoL/L (3.5-5.1); Sodium 142 mmol/L (136-145)
[2020-04-29 20:46] LABS: Anion Gap 12.1 mEq/L (5-15); Blood Urea Nitrogen 8 mg/dl (7-17); Carbon Dioxide 33 mmol/L (22.0-30.0); Creatinine Clearance Estimated 106 mL/min (50-200); Estimated Glomerular Filt Rate 102 ml/min (>60); GFR (African American) 123 ML/MIN (>60)
[2020-04-29 20:47] LABS: Calcium 9.9 mg/dl (8.4-10.2); Glucose 113 mg/dl (74-100)
[2020-04-29 21:02] LABS: Troponin I < 0.01 ng/ml (0.00-0.034)
[2020-04-29 21:14] VITALS: BP 148/75; PULSE 73; RESP 16; TEMP 36.7; O2SAT 98
[2020-04-29 21:28] VITALS: BP 136/76; PULSE 74; RESP 18; TEMP 37.1; O2SAT 95
== END 2020-04-29 21:58 | disposition home or self-care (01) ==
PROVIDERS: Emergency Provider Emergency Medicine; PCP Family Medicine
DX: R07.89 Other chest pain (principal); I10 Essential (primary) hypertension; G43.709 Chronic migraine without aura, not intractable, without status migrainosus; E78.5 Hyperlipidemia, unspecified; F41.8 Other specified anxiety disorders; K21.9 Gastro-esophageal reflux disease without esophagitis; Z79.899 Other long term (current) drug therapy; Z82.49 Family history of ischemic heart disease and other diseases of the circulatory system; Z90.49 Acquired absence of other specified parts of digestive tract; Z90.710 Acquired absence of both cervix and uterus
CPT/HCPCS: 71046; 80048; 84484; 85025; 93005; 96374; 99283

== ENCOUNTER 2021-02-23 13:39 | Emergency (ER) | payer MEDICARE, SELFPAY ==
--- NOTE | 2021-02-23 13:38 | ECG_ITS ---
APPROVED REPORT Exam: Resting ECG HR:77 bpm ECG Measurements Heart Rate 77 AXES OR 144 P 41 QRSd 82 QRS 13 QT 382 T 7 QTc 432 Conclusion Normal sinus rhythm Nonspecific ST and T wave abnormality Abnormal ECG Electronically signed by : Aleks Aquino, 02/23/2021 17:40:09
[2021-02-23 13:41] VITALS: BP 148/95; PULSE 77; RESP 17; TEMP 36.9; O2SAT 96; BMI 39.1
--- NOTE | 2021-02-23 13:42 | XR_ITS ---
PROCEDURE: XR CHEST PORTABLE CLINICAL HISTORY: CHEST PAIN COMPARISON: CR XR CHEST 2V from 01/14/2020 CR XR CHEST PORTABLE from 01/14/2020 CR XR CHEST 2V from 04/29/2020 FINDINGS: The cardiomediastinal silhouette and pulmonary vascularity are within normal limits. The lungs are clear without infiltrates, suspicious nodules, or pleural effusions. No acute bony abnormalities. IMPRESSION: No acute findings. Dictated by: Terrence Shaffer MD 02/23/2021 14:33 Terrence Shaffer MD in [place] 02/23/2021 14:33
[2021-02-23 13:50] LABS: Basophils # 0.1 K/mm3 (0-0.2); Basophils % 1.3 % (0.1-2.0); Eosinophils # 0.3 K/mm3 (0.0-0.4); Eosinophils % 3.6 % (0.1-12.0); Hematocrit 48.2 % (37.0-47.0); Hemoglobin 15.6 g/dL (12.2-16.2); Lymphocytes # 3.8 K/mm3 (0.7-4.5); Lymphocytes % 44.8 % (10-50); Mean Corpuscular HGB Conc 32.3 g/dL (31.8-35.4); Mean Corpuscular Hemoglobin 29.9 pg (27.0-31.2); Mean Corpuscular Volume 92.7 fl (81-99); Mean Platelet Volume 7.4 fl (7.4-10.4); Monocytes # 0.6 K/mm3 (0.1-1.0); Monocytes % 6.8 % (1.7-9.3); Neutrophils # 3.7 K/mm3 (1.8-7.8); Neutrophils % 43.4 % (37.0-80.0); Platelet Count 413 K/mm3 (142-424); Red Cell Distribution Width 13.8 % (11.5-17.5); White Blood Count 8.4 K/mm3 (4.8-10.8)
[2021-02-23 13:57] LABS: Alanine Aminotransferase 49 U/L (12-78); Albumin Level 4.4 g/dl (3.5-5.0); Albumin/Globulin Ratio 1.3 (1.1-1.8); Alkaline Phosphatase 174 U/L (38-126); Anion Gap 13.9 mEq/L (5-15); Aspartate Amino Transferase 66 U/L (14-36); Bilirubin,Total 0.7 mg/dl (0.2-1.3); Blood Urea Nitrogen 14 mg/dl (7-17); Calcium 9.4 mg/dl (8.4-10.2); Carbon Dioxide 28 mmol/L (22.0-30.0); Chloride 106 mmol/L (98-107); Creatinine Clearance Estimated 104 mL/min (50-200); Estimated Glomerular Filt Rate 85 ml/min (>60); GFR (African American) 103 ML/MIN (>60); Globulin 3.5 g/dL (1.3-3.2); Glucose 125 mg/dl (74-100); Potassium 3.9 mmoL/L (3.5-5.1); Sodium 144 mmol/L (136-145); Total Protein,Serum 7.9 g/dl (6.3-8.2)
[2021-02-23 14:11] LABS: Troponin I < 0.01 ng/ml (0.00-0.034)
--- NOTE | 2021-02-23 14:23 | HMH.EDHA ---
ED Disposition Clinical Impression: Atypical chest pain Headache Qualifiers: Headache type: unspecified Headache chronicity pattern: acute headache Intractability: not intractable Qualified Code(s): R51.9 - Headache, unspecified Disposition: Home, Self-Care Condition on Discharge: Good Instructions: DI for Headache Additional Instructions: see pcp and card for follow up Referrals: Valente Matos JR, MD [Primary Care Provider] - Joe Parsons MD [Staff Physician] - - Critical Care Critical Care Time: No Attestation: On 02/23/21, the high probability of a clinically significant, sudden or life threatening deterioration of the following system(s) required my full and direct attention, intervention and personal management. The time I documented below is in addition to time spent performing reported procedures but includes the following listed in this critical care notation. Medical Decision Making - Medical Records Medical records reviewed: Yes: I reviewed the patient's medical records. - Arthur Inquiry Pt receiving controlled substance: No Vital Signs: 02/23/21 13:41 02/23/21 14:46 02/23/21 15:39 Temperature 98.4 F Temperature Source Oral Pulse Rate 73 75 Pulse Rate [Left Radial] 77 Respiratory Rate 17 17 Blood Pressure 158/90 H 123/72 Blood Pressure [Right Arm] 148/95 H Blood Pressure Mean [Right Arm] 112 Blood Pressure Source Manual Cuff/ Auscultation Automatic Cuff Blood Pressure Source [Right Arm] Automatic Cuff Blood Pressure Position [Right Arm] Sitting 02 Sat by Pulse Oximetry 96 97 96 Oxygen Delivery Method Room Air Room Air Room Air - Lab Data Lab results reviewed: Yes: I reviewed the patient's lab results. Lab Results 02/23/21 13:35: WBC 8.4, RBC 5.20, Hgb 15.6, Hct 48.2 H, MCV 92.7, MCH 29.9, MCHC 32.3, RDW 13.8, Plt Count 413, MPV 7.4, Neut % (Auto) 43.4, Lymph % (Auto) 44.8, [place] % (Auto) 6.8, Eos % (Auto) 3.6, Baso % (Auto) 1.3, Neut # (Auto) 3.7, Lymph # (Auto) 3.8, [place] # (Auto) 0.6, Eos # (Auto) 0.3, Baso # (Auto) 0.1 02/23/21 13:35: Sodium 144, Potassium 3.9, Chloride 106, Carbon Dioxide 28, Anion Gap 13.9, BUN 14, Creatinine 0.70, Estimated Creat Clear 104, Estimated GFR 85, Est GFR ( Amer) 103, Glucose 125 H, Calcium 9.4, Total Bilirubin 0.7, AST 66 H, ALT 49, Alkaline Phosphatase 174 H, Troponin I < 0.01, Total Protein 7.9, Albumin 4.4, Globulin 3.5 H, Albumin/Globulin Ratio 1.3 02/23/21 13:35: ESR 25 02/23/21 15:35: Urine Color Dk yellow, Urine Appearance Cloudy, Urine pH 5.5, Ur Specific [place] >= 1.030, Urine Protein Trace, Urine Glucose (UA) Negative, Urine Ketones Negative, Urine Blood Negative, Urine Nitrate Negative, Urine Bilirubin 1+ A, Urine Urobilinogen 1.0, Ur Leukocyte Esterase Negative, Urine RBC 3-5, Urine WBC 3-5, Ur Squamous Epith Cells 5-10, Urine Bacteria 1+ Result diagrams: 02/23/21 13:35 02/23/21 13:35 Orders (Tests/Meds): ED MEDICATIONS Discontinued Medications Generic Name Dose Route Start Last Admin Trade Name Freq PRN Reason Stop Dose Admin Aspirin 243 mg 02/23/21 13:45 02/23/21 13:51 Aspirin 81mg Chewable Tablet PO 02/23/21 13:46 243 mg ONCE ONE Administration Sodium Chloride 1,000 mls @ 999 mls/hr 02/23/21 13:45 02/23/21 13:50 Sod Chlor 0.9% 1000ml Bag IV 02/23/21 14:45 999 mls/hr .Q1H1M NORA Administration Ketorolac Tromethamine 30 mg 02/23/21 13:45 02/23/21 13:53 Ketorolac 30mg/Ml Vial IV 02/23/21 13:46 30 mg ONCE ONE Administration ORDERS Category Date Time Status Troponin I Q3H Lab 02/23/21 16:45 Ordered Troponin I Q3H Lab 02/23/21 19:45 Ordered - Radiology Data #1 Image(s): Chest Image Reviewed: Yes I reviewed the patient's radiology image Preliminary Findings: Normal/NAD - CT Data CT Scan: Head Time Received: 16:[address] Reviewed: Yes: I have viewed the radiologist's interpretation Preliminary Findings: Abnormal (old cva) - ECG Data
--- NOTE | 2021-02-23 14:32 | CT_ITS ---
PROCEDURE: CT HEAD/BRAIN WO CON CLINICAL INDICATION: DIZZINESS Dizziness, headache, blurred vision COMPARISON: No exams were available for comparison TECHNIQUE: Axial images obtained. All CT scans at the facility use one or more dose reduction, viz: automated exposure control, ma/kV adjustment per patient size (including targeted exams where dose is matched to indication, i.e. head), or iterative reconstruction technique. FINDINGS: No midline shift, mass effect, intracranial hemorrhage, hydrocephalus, or extra-axial fluid collection is evident. There is a small area of decreased attenuation measuring approximately 4 mm within the anterior and left aspect of the john suggesting an old small lacunar infarction. The calvarium has an unremarkable appearance. No mastoid effusion. No sinus air-fluid level. IMPRESSION: 1. No acute intracranial finding. 2. Suspect old small lacunar infarction of the john anteriorly on the Dictated by: Terrence Shaffer MD 02/23/2021 15:55 Terrence Shaffer MD in [place] 02/23/2021 15:55
[2021-02-23 14:46] VITALS: BP 158/90; PULSE 73; RESP 17; O2SAT 97
[2021-02-23 14:57] LABS: Erythrocyte Sedimentation Rate 25 mm/hr (0-30)
--- NOTE | 2021-02-23 15:15 | PC.NURSE ---
pt gone for ct
[2021-02-23 15:39] VITALS: BP 123/72; PULSE 75; O2SAT 96
[2021-02-23 15:43] LABS: Microscopic, Urine URINE MICROSCOPIC (MICROSCOPIC)
[2021-02-23 15:48] LABS: Appearance,Urine CLOUDY (Clear); Blood, Urine Negative (Negative); Color,Urine DK YELLOW (Yellow); Glucose,Urine (UA) Negative (Negative); Ketones,Urine Negative (Negative); Leukocyte Esterase,Urine Negative (Negative); Nitrate,Urine Negative (Negative); PH,Urine 5.5 (5.0-8.5); Protein,Urine TRACE (Negative); Specific Gravity, Urine >= 1.030 (1.005-1.030)
[2021-02-23 15:49] LABS: Bilirubin,Urine 1+ (Negative)
[2021-02-23 16:06] LABS: Bacteria,Urine 1+ /lpf
--- NOTE | 2021-02-23 16:23 | PC.NURSE ---
called to get pt a tray
[2021-02-23 17:06] VITALS: BP 140/79; PULSE 76; RESP 17; TEMP 37; O2SAT 97
== END 2021-02-23 17:09 | disposition home or self-care (01) ==
PROVIDERS: Emergency Provider Emergency Medicine; PCP Family Medicine
DX: R07.89 Other chest pain (principal); R51.9 Headache, unspecified; F41.8 Other specified anxiety disorders; K21.9 Gastro-esophageal reflux disease without esophagitis; E78.5 Hyperlipidemia, unspecified; I10 Essential (primary) hypertension; M79.7 Fibromyalgia; Z79.899 Other long term (current) drug therapy
CPT/HCPCS: 70450; 71045; 80053; 81001; 84484; 85025; 85651; 93005; 96365; 96375; 99282; 99283

== ENCOUNTER 2021-03-04 16:08 | Emergency (ER) | payer MEDICARE, SELFPAY ==
--- NOTE | 2021-03-04 16:01 | ECG_ITS ---
APPROVED REPORT Exam: Resting ECG HR:75 bpm ECG Measurements Heart Rate 75 AXES CO 152 P 53 QRSd 82 QRS 33 QT 388 T 35 QTc 433 Conclusion Normal sinus rhythm Normal ECG Electronically signed by : Aleks Aquino, 03/05/2021 17:28:45
[2021-03-04 16:08] VITALS: BP 129/52; PULSE 76; RESP 17; TEMP 37.4; O2SAT 96; BMI 38.3
--- NOTE | 2021-03-04 16:17 | XR_ITS ---
PROCEDURE: XR CHEST 2V CLINICAL HISTORY: chest pain COMPARISON: CR XR CHEST 2V from 01/14/2020 CR XR CHEST 2V from 04/29/2020 CR XR CHEST PORTABLE from 02/23/2021 FINDINGS: The cardiomediastinal silhouette and pulmonary vascularity are within normal limits. The lungs are clear without infiltrates, suspicious nodules, or pleural effusions. No acute bony abnormalities. IMPRESSION: No acute findings. Dictated by: Terrence Shaffer MD 03/04/2021 16:40 Trerence Shaffer MD in [place] 03/04/2021 16:40
--- NOTE | 2021-03-04 16:21 | PC.NURSE ---
per ems report pt was given 324ASA and 0.4SL nitro in route
[2021-03-04 16:40] LABS: Basophils # 0.1 K/mm3 (0-0.2); Eosinophils # 0.3 K/mm3 (0.0-0.4); Eosinophils % 2.8 % (0.1-12.0); Hematocrit 41.2 % (37.0-47.0); Hemoglobin 13.6 g/dL (12.2-16.2); Lymphocytes # 3.2 K/mm3 (0.7-4.5); Lymphocytes % 30.1 % (10-50); Mean Corpuscular Hemoglobin 29.9 pg (27.0-31.2); Mean Corpuscular Volume 90.7 fl (81-99); Mean Platelet Volume 7.5 fl (7.4-10.4); Monocytes # 0.8 K/mm3 (0.1-1.0); Monocytes % 7.8 % (1.7-9.3); Neutrophils # 6.3 K/mm3 (1.8-7.8); Neutrophils % 58.2 % (37.0-80.0); Platelet Count 395 K/mm3 (142-424); Red Blood Count 4.55 M/mm3 (4.20-5.40); Red Cell Distribution Width 13.9 % (11.5-17.5); White Blood Count 10.8 K/mm3 (4.8-10.8)
[2021-03-04 16:47] LABS: Anion Gap 9.9 mEq/L (5-15); Blood Urea Nitrogen 11 mg/dl (7-17); Carbon Dioxide 27 mmol/L (22.0-30.0); Chloride 109 mmol/L (98-107); Creatinine Clearance Estimated 102 mL/min (50-200); Estimated Glomerular Filt Rate 101 ml/min (>60); GFR (African American) 123 ML/MIN (>60); Glucose 93 mg/dl (74-100); Potassium 3.9 mmoL/L (3.5-5.1); Sodium 142 mmol/L (136-145)
[2021-03-04 17:31] LABS: Troponin I < 0.01 ng/ml (0.00-0.034)
--- NOTE | 2021-03-04 17:48 | HMH.EDGENADL ---
ED Disposition Clinical Impression: Headache Qualifiers: Headache type: unspecified Headache chronicity pattern: acute headache Intractability: not intractable Qualified Code(s): R51.9 - Headache, unspecified Chest pain Qualifiers: Chest pain type: unspecified Qualified Code(s): R07.9 - Chest pain, unspecified Disposition: Home, Self-Care Condition on Discharge: Good Instructions: DI for Atypical Chest Pain, DI for Headache Additional Instructions: Additional instructions for CHEST PAIN: See your physician as soon as possible for further evaluation. Return immediately if worsening chest pain, vomiting, shortness of breath, fever, coughing of blood. Additional instructions for HEADACHE: See your physician as soon as possible for further evaluation. Return immediately if worsening headache, vomiting, problems with vision or speech, fever, numbness or weakness of the extremities, neck pain or stiffness. Referrals: Provider,Referral, [Referring] - - Critical Care Critical Care Time: No Attestation: On 03/04/21, the high probability of a clinically significant, sudden or life threatening deterioration of the following system(s) required my full and direct attention, intervention and personal management. The time I documented below is in addition to time spent performing reported procedures but includes the following listed in this critical care notation. Medical Decision Making - Medical Records Medical records reviewed: Yes: I reviewed the patient's medical records. MR Comment: Reviewed recent ED visit 02/25/2021. Reviewed most recent heart cath report, see below. - Arthur Inquiry Pt receiving controlled substance: No Vital Signs: 03/04/21 16:08 Temperature 99.4 F Temperature Source Oral Pulse Rate [Left Radial] 76 Respiratory Rate 17 Blood Pressure [Right Arm] 129/52 L Blood Pressure Mean [Right Arm] 77 Blood Pressure Source [Right Arm] Automatic Cuff Blood Pressure Position [Right Arm] Sitting 02 Sat by Pulse Oximetry 96 Oxygen Delivery Method Room Air - Lab Data Lab Results 03/04/21 16:12: WBC 10.8, RBC 4.55, Hgb 13.6, Hct 41.2, MCV 90.7, MCH 29.9, MCHC 33.0, RDW 13.9, Plt Count 395, MPV 7.5, Neut % (Auto) 58.2, Lymph % (Auto) 30.1, [place] % (Auto) 7.8, Eos % (Auto) 2.8, Baso % (Auto) 1.0, Neut # (Auto) 6.3, Lymph # (Auto) 3.2, [place] # (Auto) 0.8, Eos # (Auto) 0.3, Baso # (Auto) 0.1 03/04/21 16:12: Sodium 142, Potassium 3.9, Chloride 109 H, Carbon Dioxide 27, Anion Gap 9.9, BUN 11, Creatinine 0.60, Estimated Creat Clear 102, Estimated GFR 101, Est GFR ( Amer) 123, Glucose 93, Calcium 9.0, Troponin I < 0.01 Result diagrams: 03/04/21 16:12 03/04/21 16:12 Orders (Tests/Meds): ED MEDICATIONS Discontinued Medications Generic Name Dose Route Start Last Admin Trade Name Freq PRN Reason Stop Dose Admin Ketorolac Tromethamine 30 mg 03/04/21 18:00 03/04/21 18:05 Ketorolac 30mg/Ml Vial IV 03/04/21 18:01 30 mg ONCE ONE Administration ORDERS Category Date Time Status Troponin I Q3H Lab 03/04/21 19:30 Ordered Troponin I Q3H Lab 03/04/21 22:30 Ordered - Radiology Data #1 Image(s): Chest Image Reviewed: Yes I have reviewed radiologist's interpretation PROCEDURE: XR CHEST 2V CLINICAL HISTORY: chest pain COMPARISON: CR XR CHEST 2V from 01/14/2020 CR XR CHEST 2V from 04/29/2020 CR XR CHEST PORTABLE from 02/23/2021 FINDINGS: The cardiomediastinal silhouette and pulmonary vascularity are within normal limits. The lungs are clear without infiltrates, suspicious nodules, or pleural effusions. No acute bony abnormalities. IMPRESSION: No acute findings. Dictated by: Terrence Shaffer MD 03/04/2021 16:40 Terrence Shaffer MD in [place] 03/04/2021 16:40 - ECG Data Tracing #1 EKG interpreted by Rolo Hernandez MD: Rhythm: sinus Rate: 75 [place]: normal Ectopy: none Conduction: normal ST Segment Changes: none T Wave Changes: none Q W
--- NOTE | 2021-03-04 18:38 | PC.NURSE ---
Attempted to call for pt ride, unable to reach at this time.
--- NOTE | 2021-03-04 19:05 | PC.NURSE ---
attempted to call , no answer at this time.
--- NOTE | 2021-03-04 19:10 | PC.NURSE ---
called wanting update on patient and said that he is on his way to provide transportation home for patient.
[2021-03-04 19:13] VITALS: BP 144/84; PULSE 80; RESP 19; TEMP 37.4; O2SAT 97
== END 2021-03-04 19:14 | disposition home or self-care (01) ==
PROVIDERS: Emergency Provider Emergency Medicine; PCP Family Medicine
DX: G43.909 Migraine, unspecified, not intractable, without status migrainosus (principal); R07.9 Chest pain, unspecified; K21.9 Gastro-esophageal reflux disease without esophagitis; E78.5 Hyperlipidemia, unspecified; I10 Essential (primary) hypertension; F41.8 Other specified anxiety disorders; Z79.899 Other long term (current) drug therapy
CPT/HCPCS: 71046; 80048; 84484; 85025; 93005; 96374; 99283

== ENCOUNTER 2021-03-23 15:54 | Observation (INO) | payer MEDICARE, SELFPAY ==
[2021-03-23] VITALS (15 sets, daily range): BP systolic 111–151; BP diastolic 65–89; PULSE 60–104; RESP 12–19; TEMP 36.8–36.9; O2SAT 95–100; BMI 38.3; BMI 39.6
--- NOTE | 2021-03-23 16:21 | XR_ITS ---
PROCEDURE INFORMATION: Exam: XR Chest Exam date and time: 03/23/2021 4:21 PM Age: 60 years old Clinical indication: Chest wall pain; Patient HX: Chest pain TECHNIQUE: Imaging protocol: XR of the chest. Views: 1 view. COMPARISON: CR XR CHEST 2V 03/04/2021 4:17 PM FINDINGS: Lungs: The lungs are hyperinflated, consistent with underlying small airways disease. Atelectatic changes noted within both lung bases without focal pneumonia. Pleural spaces: There is no evidence of pneumothorax. There are no pleural effusions present. Heart/Mediastinum: Unremarkable. No cardiomegaly. Diaphragm: There is nonspecific elevation of the right hemidiaphragm. Bones/joints: Unremarkable. IMPRESSION: 1. The lungs are hyperinflated, consistent with underlying small airways disease. 2. Atelectatic changes noted within both lung bases without focal pneumonia.
[2021-03-23 16:31] LABS: Basophils # 0.2 K/mm3 (0-0.2); Basophils % 2.1 % (0.1-2.0); Eosinophils # 0.4 K/mm3 (0.0-0.4); Eosinophils % 4.3 % (0.1-12.0); Hematocrit 42.2 % (37.0-47.0); Hemoglobin 13.5 g/dL (12.2-16.2); Lymphocytes # 3.4 K/mm3 (0.7-4.5); Lymphocytes % 34.4 % (10-50); Mean Corpuscular HGB Conc 32.1 g/dL (31.8-35.4); Mean Corpuscular Hemoglobin 29.5 pg (27.0-31.2); Mean Corpuscular Volume 91.9 fl (81-99); Mean Platelet Volume 7.5 fl (7.4-10.4); Monocytes # 0.8 K/mm3 (0.1-1.0); Monocytes % 7.8 % (1.7-9.3); Neutrophils % 51.3 % (37.0-80.0); Platelet Count 396 K/mm3 (142-424); Red Blood Count 4.59 M/mm3 (4.20-5.40); Red Cell Distribution Width 13.6 % (11.5-17.5); White Blood Count 9.8 K/mm3 (4.8-10.8)
[2021-03-23 16:36] LABS: Anion Gap 11.3 mEq/L (5-15); Blood Urea Nitrogen 12 mg/dl (7-17); Calcium 9.2 mg/dl (8.4-10.2); Carbon Dioxide 29 mmol/L (22.0-30.0); Chloride 105 mmol/L (98-107); Creatinine Clearance Estimated 102 mL/min (50-200); Estimated Glomerular Filt Rate 101 ml/min (>60); GFR (African American) 123 ML/MIN (>60); Glucose 84 mg/dl (74-100); Potassium 4.3 mmoL/L (3.5-5.1); Sodium 141 mmol/L (136-145)
[2021-03-23 16:51] LABS: Troponin I < 0.01 ng/ml (0.00-0.034)
--- NOTE | 2021-03-23 17:09 | HMH.EDGENADL ---
ED Disposition Clinical Impression: Chest pain Qualifiers: Chest pain type: unspecified Qualified Code(s): R07.9 - Chest pain, unspecified Disposition: Admitted as Observation Condition on Discharge: Good Referrals: Valente Matos JR, MD [Primary Care Provider] - Time of Disposition: 19:28 - Critical Care Critical Care Time: No Attestation: On 03/23/21, the high probability of a clinically significant, sudden or life threatening deterioration of the following system(s) required my full and direct attention, intervention and personal management. The time I documented below is in addition to time spent performing reported procedures but includes the following listed in this critical care notation. Medical Decision Making - Medical Records Medical records reviewed: Yes: I reviewed the patient's medical records. - Arthur Inquiry Pt receiving controlled substance: No Vital Signs: 03/23/21 16:02 03/23/21 17:00 03/23/21 17:31 Temperature 98.4 F Temperature Source Oral Pulse Rate 60 104 H Pulse Rate [Right Radial] 62 Respiratory Rate 18 18 16 Blood Pressure 127/76 129/79 Blood Pressure [Right Arm] 111/89 Blood Pressure Mean 92 89 Blood Pressure Mean [Right Arm] 96 Blood Pressure Source [Right Arm] Automatic Cuff Blood Pressure Position [Right Arm] Sitting 02 Sat by Pulse Oximetry 96 100 100 Oxygen Delivery Method Room Air 03/23/21 18:01 Temperature Temperature Source Pulse Rate 68 Pulse Rate [Right Radial] Respiratory Rate 16 Blood Pressure 114/73 Blood Pressure [Right Arm] Blood Pressure Mean 79 Blood Pressure Mean [Right Arm] Blood Pressure Source [Right Arm] Blood Pressure Position [Right Arm] 02 Sat by Pulse Oximetry 100 Oxygen Delivery Method - Lab Data Lab results reviewed: Yes: I reviewed the patient's lab results. Lab Results 03/23/21 16:03: WBC 9.8, RBC 4.59, Hgb 13.5, Hct 42.2, MCV 91.9, MCH 29.5, MCHC 32.1, RDW 13.6, Plt Count 396, MPV 7.5, Neut % (Auto) 51.3, Lymph % (Auto) 34.4, [place] % (Auto) 7.8, Eos % (Auto) 4.3, Baso % (Auto) 2.1 H, Neut # (Auto) 5.0, Lymph # (Auto) 3.4, [place] # (Auto) 0.8, Eos # (Auto) 0.4, Baso # (Auto) 0.2 03/23/21 16:03: Sodium 141, Potassium 4.3, Chloride 105, Carbon Dioxide 29, Anion Gap 11.3, BUN 12, Creatinine 0.60, Estimated Creat Clear 102, Estimated GFR 101, Est GFR ( Amer) 123, Glucose 84, Calcium 9.2, Troponin I < 0.01 Result diagrams: 03/23/21 16:03 03/23/21 16:03 Orders (Tests/Meds): ED MEDICATIONS Discontinued Medications Generic Name Dose Route Start Last Admin Trade Name Freq PRN Reason Stop Dose Admin Ketorolac Tromethamine 15 mg 03/23/21 17:10 03/23/21 17:30 Ketorolac 30mg/Ml Vial IV 03/23/21 17:11 15 mg ONCE ONE Administration Methylprednisolone Sodium Succinate 40 mg 03/23/21 17:10 03/23/21 17:31 Methylprednisolone Sod Succ 40mg Vial IV 03/23/21 17:11 40 mg ONCE ONE Administration Metoclopramide HCl 5 mg 03/23/21 17:10 03/23/21 17:31 Metoclopramide Hcl 10mg/2ml Vial IVP 03/23/21 17:11 5 mg ONCE ONE Administration ORDERS Category Date Time Status Trop I [Troponin I] Stat Lab 03/23/21 18:10 Received Troponin I Q3H Lab 03/23/21 19:30 Ordered Troponin I Q3H Lab 03/23/21 22:30 Ordered - Radiology Data #1 Image(s): Chest Image Reviewed: Yes I reviewed the patient's radiology results, Yes I reviewed the patient's radiology image Preliminary Findings: Normal/NAD - ECG Data Tracing #1 I reviewed this ECG and interpreted as documented below: Normal sinus rhythm, 62 bpm, no ST elevation or depression, no ectopy, normal intervals. ECG initial impression date: 03/23/21 ECG initial impression time: 16:00 - JOSEMANUEL Score for Non-Stemi Age of Patient: 60-69 years old Heart Rate: 50-69 bpm Systolic Blood Pressure: 100-119 mmHg Serum Creatinine: 0.40-0.79 mg/dl CHF [place] Class: I-No CHF Other Risk Factors: None Non-Stemi Risk Score: 108 Medi
[2021-03-23 19:28] LABS: Troponin I < 0.01 ng/ml (0.00-0.034)
--- NOTE | 2021-03-23 19:30 | PC.NURSE ---
received bed assignment from ALLA reyes. called registration and spoke with Amy with rm 204,obs, chest pain, lizet
--- NOTE | 2021-03-23 19:47 | PC.NURSE ---
PT WAS D/C AT 1945
[2021-03-23 19:50] LABS: Coronavirus 19, PCR Not Detected (NotDetected); Influenza A, PCR Not Detected (NotDetected); Influenza B, PCR Not Detected (NotDetected)
--- NOTE | 2021-03-23 21:09 | ECG_ITS ---
APPROVED REPORT Exam: Resting ECG HR:65 bpm ECG Measurements Heart Rate 65 AXES SD 144 P 58 QRSd 78 QRS 37 QT 426 T 25 QTc 443 Conclusion Normal sinus rhythm Normal ECG Electronically signed by : Aleks Aquino MD 03/25/2021 11:39:08
--- NOTE | 2021-03-23 21:59 | PC.NURSE ---
PT ARRIVED TO FLOOR VIA W/C FROM ED W/STAFF AT [id number]
--- NOTE | 2021-03-23 22:34 | PC.NURSE ---
After calling report to Ruma Ovalle RN, pt c/o chest pain returned and rated 9/10 on [facility]. New EKG obtained, no changes per MD, and Nitro paste applied to LCW. On reassessment, pt reports the pt has decreased to 7/10. Reassessed at this time and pt report 4/10. Ruma Ovalle RN was updated on the above.
[2021-03-23 23:54] LABS: Troponin I < 0.01 ng/ml (0.00-0.034)
[2021-03-24] VITALS: BP 146/78; PULSE 70; PULSE 87; RESP 20; TEMP 36.9; O2SAT 97
--- NOTE | 2021-03-24 03:48 | PC.NURSE ---
A&OX4. TOLERATING RA WELL. PT HAS HAD NO C/O CP/NA/VO/ OR SOA THUS FAR. PT ATE A SNACK AND WENT TO SLEEP. TOLERATING NPO DIET AFTER 0000. VSS WILL CONTINUE TO MONITOR.
[2021-03-24 04:00] VITALS: BP 115/68; PULSE 68; PULSE 70; RESP 16; TEMP 36.4; O2SAT 94
[2021-03-24 05:37] VITALS: BMI 39.9
[2021-03-24 06:04] LABS: Basophils % 0.3 % (0.1-2.0); Chloride 107 mmol/L (98-107); Eosinophils % 0.1 % (0.1-12.0); Hematocrit 41.6 % (37.0-47.0); Hemoglobin 13.5 g/dL (12.2-16.2); Lymphocytes # 1.8 K/mm3 (0.7-4.5); Mean Corpuscular HGB Conc 32.4 g/dL (31.8-35.4); Mean Corpuscular Hemoglobin 29.6 pg (27.0-31.2); Mean Corpuscular Volume 91.4 fl (81-99); Mean Platelet Volume 8.4 fl (7.4-10.4); Monocytes # 0.4 K/mm3 (0.1-1.0); Monocytes % 3.4 % (1.7-9.3); Neutrophils # 9.4 K/mm3 (1.8-7.8); Neutrophils % 81.2 % (37.0-80.0); Platelet Count 463 K/mm3 (142-424); Red Blood Count 4.56 M/mm3 (4.20-5.40); Red Cell Distribution Width 13.5 % (11.5-17.5); Sodium 141 mmol/L (136-145); White Blood Count 11.6 K/mm3 (4.8-10.8)
[2021-03-24 06:07] LABS: Potassium 4.3 mmoL/L (3.5-5.1)
[2021-03-24 06:08] LABS: Anion Gap 12.3 mEq/L (5-15); Blood Urea Nitrogen 13 mg/dl (7-17); Calcium 9.4 mg/dl (8.4-10.2); Carbon Dioxide 26 mmol/L (22.0-30.0); Creatinine Clearance Estimated 106 mL/min (50-200); Estimated Glomerular Filt Rate 125 ml/min (>60); GFR (African American) 151 ML/MIN (>60); Glucose 130 mg/dl (74-100)
[2021-03-24 08:00] VITALS: BP 141/83; PULSE 70; PULSE 76; RESP 15; TEMP 36.7; O2SAT 95
--- NOTE | 2021-03-24 08:13 | HMH.PHAVTE ---
[facility] Pharmacy VTE Monitoring - Patient Demographics Admission date: 03/23/21 Report Date: 03/24/21 Time: 08:13 Allergies/Adverse Reactions: Patient Allergies diphenhydramine [From BENADRYL] Allergy (Unknown, Verified 02/18/18 20:13) AGITATION oxycodone [From PERCOCET] Allergy (Unknown, Verified 02/18/18 20:13) promethazine [From PHENERGAN] Allergy (Unknown, Verified 02/18/18 20:13) AGITATION sumatriptan [From IMITREX] Allergy (Unknown, Verified 02/18/18 20:13) Height: 1.7 m Weight: 115.326 kg Patient Problems: Current Active Problems Chest pain (Acute) - VTE Risk Labs: VTE Related Lab Results Hgb 13.5 g/dL (12.2-16.2) 03/24/21 05:27 Hct 41.6 % (37.0-47.0) 03/24/21 05:27 Plt Count 463 K/mm3 (142-424) H 03/24/21 05:27 BUN 13 mg/dl (7-17) 03/24/21 05:27 Creatinine 0.50 mg/dl (0.52-1.04) L 03/24/21 05:27 Estimated Creat Clear 106 mL/min (50-200) 03/24/21 05:27 - Prophylaxis VTE Prophylaxis Ordered?: Yes Types of VTE Prophylaxis: IPCS Thigh High, Pharmacological Location of Applied Device: Bilateral Lower Extremeties Pharmacologic Type: Enoxaparin
[2021-03-24 08:33] VITALS: O2SAT 95
--- NOTE | 2021-03-24 10:06 | HMH.PHAINT ---
MEDICATION RECONCILIATION COMPLETED USING RX BOTTLES, EXTERNAL PHARMACY FILL HISTORY AND PATIENT INTERVIEW.
--- NOTE | 2021-03-24 10:30 | PC.NURSE ---
Verified with pt. last angiogram and stress test. pt reports having them done at [facility]. Pt. reports being unable to remember when they were done last. nurse reported this to Shantel VO at Dr. Mcclendon's office.
--- NOTE | 2021-03-24 11:11 | HMH.ACPN2 ---
Internal Medicine - PN: Subj *Date: 03/24/21 *Time: 11:11 Interval history: This 60-year-old white female was admitted per the emergency room last night. She presented with complaints of migraine headache and with left chest pain. She has a history of multiple cardiac catheterizations with no stenting. She is not sure when her last catheterization was. She does not describe shortness of breath or diaphoresis. Here is the ER narrative: 60yo F evaluated for left-sided chest pain. Differential diagnosis includes was not limited to: ACS/FL, PE, pneumonia, anxiety, GERD, constipation, pneumothorax, aortic injury. Chest x-ray is unremarkable. CBC, BMP, troponin are all unremarkable. EKG is unremarkable as above. Patient also complains of a migraine after reviewing all cardiac history and exam with her. This seems to be her greater complaint and she requests that be treated over her tingly chest pain. She has numerous allergies but she is treated with Toradol, steroid, metoclopramide. Patient's heart score is 3-4 depending on how many risk factors you give her (obesity, hypertension, age, possible family history). Patient continues to complain of some left-sided tingly sensation in her chest. Repeat troponin is pending at this time. Discussed the case with Dr. Mcclendon who is agreeable to admission for further observation and monitoring. Of note, her migraine has improved. Patient is a DNR. This morning the patient is comfortable and is without chest pain and has minimal headache. Her troponins were negative. Her EKG was negative. She has left chest tenderness to palpation. Exam Vital signs and Labs for Last 24 Hours: Temp Pulse Resp BP Pulse Ox 98.0 F 76 15 141/83 H 95 03/24/21 08:00 03/24/21 08:00 03/24/21 08:00 03/24/21 08:00 03/24/21 08:33 Laboratory Results - last 24 hr 03/23/21 16:03: WBC 9.8, RBC 4.59, Hgb 13.5, Hct 42.2, MCV 91.9, MCH 29.5, MCHC 32.1, RDW 13.6, Plt Count 396, MPV 7.5, Neut % (Auto) 51.3, Lymph % (Auto) 34.4, [place] % (Auto) 7.8, Eos % (Auto) 4.3, Baso % (Auto) 2.1 H, Neut # (Auto) 5.0, Lymph # (Auto) 3.4, [place] # (Auto) 0.8, Eos # (Auto) 0.4, Baso # (Auto) 0.2 03/23/21 16:03: Sodium 141, Potassium 4.3, Chloride 105, Carbon Dioxide 29, Anion Gap 11.3, BUN 12, Creatinine 0.60, Estimated Creat Clear 102, Estimated GFR 101, Est GFR ( Amer) 123, Glucose 84, Calcium 9.2, Troponin I < 0.01 03/23/21 18:10: Troponin I < 0.01 03/23/21 19:39: SARS-CoV-2 (PCR) Not detected, Influenza A Untype (PCR) Not detected, Influenza Type B (PCR) Not detected 03/23/21 23:20: Troponin I < 0.01 03/24/21 05:27: WBC 11.6 H, RBC 4.56, Hgb 13.5, Hct 41.6, MCV 91.4, MCH 29.6, MCHC 32.4, RDW 13.5, Plt Count 463 H, MPV 8.4, Neut % (Auto) 81.2 H, Lymph % (Auto) 15.0, [place] % (Auto) 3.4, Eos % (Auto) 0.1, Baso % (Auto) 0.3, Neut # (Auto) 9.4 H, Lymph # (Auto) 1.8, [place] # (Auto) 0.4, Eos # (Auto) 0.0, Baso # (Auto) 0.0 03/24/21 05:27: Sodium 141, Potassium 4.3, Chloride 107, Carbon Dioxide 26, Anion Gap 12.3, BUN 13, Creatinine 0.50 L, Estimated Creat Clear 106, Estimated GFR 125, Est GFR ( Amer) 151 D, Glucose 130 H D, Calcium 9.4 I & O for Last 24 hours: Intake & Output 03/21/21 03/22/21 03/23/21 03/24/21 11:59 11:59 11:59 11:59 Intake Total 489 / 489 Balance 489 / 489 Weight 254 lb 4 oz - Constitutional no acute distress, morbidly obese - *Routine HEENT Exam Head: Present: normocephalic Eye: Present: PERRL ENT: Present: mucous membranes moist (Fever blisters are noted of the lower lip) - *Routine Neck Exam Absent: carotid bruit, lymphadenopathy - Routine Chest/Breast/Axilla Exam Chest wall: Present: tenderness (Left costochondral area.) - *Routine Respiratory Exam Present: CTA bilaterally - *Routine Cardiovascular Exam Present: RRR. Absent: murmur, ectopic - *Routine Abdominal Exam Present: soft, obese. Absent: tenderness - *Routine Extremities Exam Present: edema - *Routine
--- NOTE | 2021-03-24 11:53 | HMH.HPDC ---
General - General Admission date:: 03/23/21 Discharge date: 03/24/21 *Admission Date: 03/23/21 *Chief complaint: chest pain *History of present illness: Ms. Barcenas is a 60-year-old female with a history of migraines, hypertension, heart murmur, and hyperlipidemia. She states Sunday a.m. she began having left-sided chest pressure. She called her PCP and they promptly called 911 and she was transported to the emergency room. She states she was laying in her recliner when the pain began. She also had had a migraine for a few days. She states she was given aspirin in the ambulance and Nitropaste was placed in the emergency room which only seemed to make the pain and the headache worse. Her initial set of enzymes and EKGs were normal but she was admitted for further observation. This a.m. she is feeling a little bit better. She states she still has some chest pain. It hurts to take a deep breath. She states she also still has a headache. All of her enzymes have returned normal. [facility] History I have reviewed the patient's past medical history: Yes Medical History: Reports:: Anxiety, Arrhythmia, Depression, Gastroesophageal Reflux Disease(GERD), Heart Murmur, Hyperlipidemia, Hypertension Denies:: Atherosclerotic Heart Disease, Cancer, Congestive Heart Failure, Chronic Obstructive Pulmonary Disease (COPD), Diabetes Mellitus Type 1, Diabetes Mellitus Type 2, Internal Pacemaker, MRSA *Have you ever received a pneumonia vaccine?: Yes *Have you received a flu vaccine this season?: Yes Other Medical History: Reports: Arthritis, Cataracts, Fibromyalgia Laterality Cases: Left: Arthroscopy Knee, Bilateral: Carpal Tunnel Release Other Surgeries: Yes: Appendectomy, Cardiac Catheterization, Cholecystectomy, Hysterectomy-Total, Other (Cataract removal). No: Pacemaker Amputation: No Fractures: No - *Social History Smoking Status: Never smoker Alcohol Intake: never Alcohol Intake Frequency:: holidays/special occasions only *Occupational Status:: employed Housing: house Household Members: spouse *Travel in the last 8 weeks: None - Psychiatric History Pschychiatric History:: Reports:: Anxiety, Depression Family Hx:: Cancer, Coronary Artery Disease Review of Systems - Constitutional Denies chills, Denies fever(s) - Eyes Denies blurry vision, Denies double vision - ENT Denies nasal congestion, Denies sore throat - *Cardiovascular Reports chest pain, Reports shortness of breath, Denies rapid, pounding, or irregular heartbeat - *Respiratory Reports shortness of breath, Reports pain on inspiration, Denies cough - *Gastrointestinal Denies abdominal pain, Denies loose stools, Denies nausea, Denies vomiting - *Genitourinary Denies difficulty urinating, Denies painful urination - *Musculoskeletal Denies joint pain - *Neurologic Reports headache(s), Denies dizziness, Denies weakness Exam Vital signs and Labs for Last 24 Hours: Temp Pulse Resp BP Pulse Ox 98.0 F 76 15 141/83 H 95 03/24/21 08:00 03/24/21 08:00 03/24/21 08:00 03/24/21 08:00 03/24/21 08:33 Laboratory Results - last 24 hr 03/23/21 16:03: WBC 9.8, RBC 4.59, Hgb 13.5, Hct 42.2, MCV 91.9, MCH 29.5, MCHC 32.1, RDW 13.6, Plt Count 396, MPV 7.5, Neut % (Auto) 51.3, Lymph % (Auto) 34.4, [place] % (Auto) 7.8, Eos % (Auto) 4.3, Baso % (Auto) 2.1 H, Neut # (Auto) 5.0, Lymph # (Auto) 3.4, [place] # (Auto) 0.8, Eos # (Auto) 0.4, Baso # (Auto) 0.2 03/23/21 16:03: Sodium 141, Potassium 4.3, Chloride 105, Carbon Dioxide 29, Anion Gap 11.3, BUN 12, Creatinine 0.60, Estimated Creat Clear 102, Estimated GFR 101, Est GFR ( Amer) 123, Glucose 84, Calcium 9.2, Troponin I < 0.01 03/23/21 18:10: Troponin I < 0.01 03/23/21 19:39: SARS-CoV-2 (PCR) Not detected, Influenza A Untype (PCR) Not detected, Influenza Type B (PCR) Not detected 03/23/21 23:20: Troponin I < 0.01 03/24/21 05:27: WBC 11.6 H, RBC 4.56, Hgb 13.5, Hct 41.6, MCV 91.4, MCH 29.6, MCHC 32.4, RDW 13.5, Plt Count 46
[2021-03-24 13:00] VITALS: BP 125/81; PULSE 72; RESP 18; TEMP 36.9; O2SAT 94
--- NOTE | 2021-03-24 14:45 | PC.NURSE ---
Discharge education provided. Questions encouraged and answered. Pt. v/u. IV removed. pt. awaiting ride home.
--- NOTE | 2021-03-24 15:30 | PC.NURSE ---
Home medications removed from drawer and given to pt.
--- NOTE | 2021-03-24 15:40 | PC.NURSE ---
Pt. left unit via wheelchair accompanied by staff x1.
== END 2021-03-24 15:40 | disposition home or self-care (01) ==
LOC: ER 19:28 → 2ND 19:32
PROVIDERS: Admitting Provider Family Medicine; Emergency Provider Family Medicine; PCP Family Medicine; Visit Provider Family Medicine
DX: R07.9 Chest pain, unspecified (principal); Z20.822 Contact with and (suspected) exposure to COVID-19; M94.0 Chondrocostal junction syndrome [Tietze]; E66.9 Obesity, unspecified; Z68.39 Body mass index [BMI] 39.0-39.9, adult; G43.909 Migraine, unspecified, not intractable, without status migrainosus; I10 Essential (primary) hypertension; E78.5 Hyperlipidemia, unspecified; K21.9 Gastro-esophageal reflux disease without esophagitis; Z79.899 Other long term (current) drug therapy
CPT/HCPCS: G0378; 36415; 71045; 80048; 84484; 85025; 93005; 96374; 96375; 99284; U0003

== ENCOUNTER 2021-09-26 12:42 | Emergency (ER) | payer MEDICARE, SELFPAY ==
[2021-09-26] VITALS (11 sets, daily range): BP systolic 99–173; BP diastolic 69–93; PULSE 54–83; RESP 19–20; TEMP 37.1; O2SAT 85–100; BMI 37.4
--- NOTE | 2021-09-26 12:44 | XR_ITS ---
FINAL REPORT CLINICAL HISTORY: cp COMPARISON: March 23, 2021 FINDINGS: SINGLE VIEW CHEST. The heart is normal in size. The mediastinum is unremarkable. The lungs are clear. There is no pneumothorax. IMPRESSION: No acute process. Reviewed, Interpreted and Dictated by Maik Orozco III, MD Transcribed by Tram Weir Authenticated by Maik Orozco III, MD on 09/26/2021 01:53:53 PM [facility]
--- NOTE | 2021-09-26 12:45 | PC.NURSE ---
Spoke with Josie CHANEL therapist who states she will be to see pt
--- NOTE | 2021-09-26 12:45 | HMH.EDGENADL ---
ED Disposition Clinical Impression: Suicidal ideation, Atypical chest pain Disposition: Xfer Short-Term Hosp Condition on Discharge: Good Referrals: Provider,Referral, [Primary Care Provider] - - Critical Care Critical Care Time: No Attestation: On , the high probability of a clinically significant, sudden or life threatening deterioration of the following system(s) required my full and direct attention, intervention and personal management. The time I documented below is in addition to time spent performing reported procedures but includes the following listed in this critical care notation. Medical Decision Making - Medical Records Medical records reviewed: Yes: I reviewed the patient's medical records. - Arthur Inquiry Pt receiving controlled substance: No Vital Signs: 09/26/21 12:42 09/26/21 13:00 09/26/21 13:30 Temperature 98.8 F Temperature Source Oral Pulse Rate 70 77 Pulse Rate [Left Radial] 69 Respiratory Rate 20 Blood Pressure 144/78 H 150/69 H Blood Pressure [Right Arm] 141/73 H Blood Pressure Mean [Right Arm] 95 Blood Pressure Source [Right Arm] Automatic Cuff Blood Pressure Position [Right Arm] Sitting 02 Sat by Pulse Oximetry 98 97 97 Oxygen Delivery Method Room Air 09/26/21 13:57 09/26/21 14:29 09/26/21 14:56 Temperature Temperature Source Pulse Rate 70 77 71 Pulse Rate [Left Radial] Respiratory Rate Blood Pressure 143/83 H 173/93 H 118/81 Blood Pressure [Right Arm] Blood Pressure Mean [Right Arm] Blood Pressure Source [Right Arm] Blood Pressure Position [Right Arm] 02 Sat by Pulse Oximetry 96 98 96 Oxygen Delivery Method 09/26/21 15:01 09/26/21 15:31 09/26/21 16:33 Temperature Temperature Source Pulse Rate 54 L 76 65 Pulse Rate [Left Radial] Respiratory Rate Blood Pressure 137/71 103/89 L 142/78 H Blood Pressure [Right Arm] Blood Pressure Mean [Right Arm] Blood Pressure Source [Right Arm] Blood Pressure Position [Right Arm] 02 Sat by Pulse Oximetry 100 85 L 99 Oxygen Delivery Method 09/26/21 17:02 Temperature Temperature Source Pulse Rate 83 Pulse Rate [Left Radial] Respiratory Rate Blood Pressure 99/76 L Blood Pressure [Right Arm] Blood Pressure Mean [Right Arm] Blood Pressure Source [Right Arm] Blood Pressure Position [Right Arm] 02 Sat by Pulse Oximetry 96 Oxygen Delivery Method - Lab Data Lab Results 09/26/21 13:00: WBC 8.3, RBC 5.04, Hgb 14.9, Hct 46.6, MCV 92.5, MCH 29.5, MCHC 31.9, RDW 13.2, Plt Count 425 H, MPV 7.9, Neut % (Auto) 48.9, Lymph % (Auto) 39.1, [place] % (Auto) 7.6, Eos % (Auto) 2.2, Baso % (Auto) 2.2 H, Neut # (Auto) 4.0, Lymph # (Auto) 3.2, [place] # (Auto) 0.6, Eos # (Auto) 0.2, Baso # (Auto) 0.2 09/26/21 13:00: Sodium 138, Potassium 3.8, Chloride 104, Carbon Dioxide 26, Anion Gap 11.8, BUN 9, Creatinine 0.70, Estimated Creat Clear 100, Estimated GFR 85, Est GFR ( Amer) 103, Glucose 104 H, Calcium 9.6, Total Bilirubin 0.9, AST 64 H, ALT 48, Alkaline Phosphatase 176 H, Troponin I < 0.01, Total Protein 7.4, Albumin 4.2, Globulin 3.2, Albumin/Globulin Ratio 1.3, Salicylates < 1.0 L, Acetaminophen < 10 L 09/26/21 13:00: Plasma/Serum Alcohol < 10 09/26/21 15:45: Troponin I < 0.01 Result diagrams: 09/26/21 13:00 09/26/21 13:00 Orders (Tests/Meds): ED MEDICATIONS Discontinued Medications Generic Name Dose Route Start Last Admin Trade Name Radha PRN Reason Stop Dose Admin Aspirin 325 mg 09/26/21 12:44 09/26/21 12:53 Aspirin 325mg Tablet PO 09/26/21 12:45 325 mg ONCE ONE Administration ORDERS Category Date Time Status Drug Screen,Urine Stat Lab 09/26/21 12:47 Ordered Troponin I Q3H Lab 09/26/21 18:45 Ordered Medical Decision Narrative: ekg by il nsr, qrs narrow, no st elev General Adult HPI - General Stated complaint: psych Time Seen by Provider: 09/26/21 12:45 - History of Present Illness HPI narrative:
--- NOTE | 2021-09-26 12:52 | ECG_ITS ---
APPROVED REPORT Exam: Resting ECG HR:65 bpm ECG Measurements Heart Rate 65 AXES DE 150 P 57 QRSd 85 QRS 14 QT 417 T 16 QTc 429 Conclusion SINUS RHYTHM NORMAL ECG UNCONFIRMED REPORT Electronically signed by : Aleks Aquino MD 09/26/2021 20:33:54
--- NOTE | 2021-09-26 13:02 | PC.NURSE ---
Rad at bedside
[2021-09-26 13:10] LABS: Basophils # 0.2 K/mm3 (0-0.2); Basophils % 2.2 % (0.1-2.0); Eosinophils # 0.2 K/mm3 (0.0-0.4); Eosinophils % 2.2 % (0.1-12.0); Hematocrit 46.6 % (37.0-47.0); Hemoglobin 14.9 g/dL (12.2-16.2); Lymphocytes # 3.2 K/mm3 (0.7-4.5); Lymphocytes % 39.1 % (10-50); Mean Corpuscular HGB Conc 31.9 g/dL (31.8-35.4); Mean Corpuscular Hemoglobin 29.5 pg (27.0-31.2); Mean Corpuscular Volume 92.5 fl (81-99); Mean Platelet Volume 7.9 fl (7.4-10.4); Monocytes # 0.6 K/mm3 (0.1-1.0); Monocytes % 7.6 % (1.7-9.3); Neutrophils % 48.9 % (37.0-80.0); Platelet Count 425 K/mm3 (142-424); Red Blood Count 5.04 M/mm3 (4.20-5.40); Red Cell Distribution Width 13.2 % (11.5-17.5); White Blood Count 8.3 K/mm3 (4.8-10.8)
[2021-09-26 13:11] LABS: Chloride 104 mmol/L (98-107); Potassium 3.8 mmoL/L (3.5-5.1); Sodium 138 mmol/L (136-145)
[2021-09-26 13:13] LABS: Blood Urea Nitrogen 9 mg/dl (7-17); Creatinine Clearance Estimated 100 mL/min (50-200); Estimated Glomerular Filt Rate 85 ml/min (>60); GFR (African American) 103 ML/MIN (>60)
[2021-09-26 13:14] LABS: Alanine Aminotransferase 48 U/L (12-78); Albumin Level 4.2 g/dl (3.5-5.0); Albumin/Globulin Ratio 1.3 (1.1-1.8); Alkaline Phosphatase 176 U/L (38-126); Anion Gap 11.8 mEq/L (5-15); Aspartate Amino Transferase 64 U/L (14-36); Bilirubin,Total 0.9 mg/dl (0.2-1.3); Calcium 9.6 mg/dl (8.4-10.2); Carbon Dioxide 26 mmol/L (22.0-30.0); Ethyl Alcohol < 10 mg/dl (0-10); Globulin 3.2 g/dL (1.3-3.2); Glucose 104 mg/dl (74-100); Salicylate < 1.0 mg/dL (2.0-20.0); Total Protein,Serum 7.4 g/dl (6.3-8.2)
[2021-09-26 13:15] LABS: Acetaminophen < 10 ug/ml (10-30)
[2021-09-26 13:28] LABS: Troponin I < 0.01 ng/ml (0.00-0.034)
--- NOTE | 2021-09-26 14:26 | PC.NURSE ---
Josie Connor at bedside
--- NOTE | 2021-09-26 14:59 | PC.NURSE ---
Recommendation from Josie is for pt to be sent to an inpatient facility for further evaluation.
--- NOTE | 2021-09-26 15:17 | PC.NURSE ---
called and left message for judge encinas to return call.
--- NOTE | 2021-09-26 15:46 | HMH.BHCONS ---
*Admission Date: 09/26/21 *Reason for consult:: depression *History of present illness: I interviewed patient at bedside. When asked why she is here; she immediately got upset. -she states that she got up this morning -and it is her oldest son's birthday; so she called him; but his answered. She states that the would not give her the cell number of her son. Cause he wasn't at home. She just wanted to wish him a happy birthday. -she states that the was not nice to her -she hung up; and got really depressed and disappointed. She states that her son is 41 years old today and they do not have a good relationship. -they haven't talked in about 5 years I asked her several times; if there was something that happened between them that would cause him to not talk to her and she said yes; but never really elaborated. -she states that he told her that she is not a good mother -that she always picked his younger brother over him -she denies that she did this -the younger brother was 37 years old -she hasn't talked to him for about 5 years as well -but if she calls him; he will answer She states that she didn't even have to talk to her. -that she wanted him to know that she knew it was his birthday -that she remembered -that she loves him -she states that his daughter about 4 years ago -she was 16 years old -she hung herself She feels rejected by her kids. -her youngest son lives with her oldest son -so she feels that her oldest son controls her youngest one -that he can't be close to her cause the oldest -she has been in her house for 12 years -neither have come to see her there She states that her is not the most understanding and supportive. -that he doesn't understand why she can't let it go -to not worry with him -this is her 2nd -not the father of her kids -she states that after 18 years her 1st up and left her -for another woman -she states that she has been remarried for 16 years -and this really upset her sons when she did this -even though her ex was already remarried at this point She states that all of this is why she came here. -cause she wanted 'to fucking kill myself' -she states that she had planned to take all of her medicines -she did not get them together or go to her cabinet -but she had thoughts of this and started to panic they were so bad -she states that she called her best friend; they did not answer -she called another friend; no answer -she called her insurance company; and talked to a nurse; they stayed on the phone wth her and called 911 to go to her house -she states that she was in a panic at this point She is not sure what stopped her from taking the pills. -she states that she had just thought about it -cannot give me any reason that would keep her from harming herself She states that she has been inpatient 3 different times in her life. -all of them at least 5 years ago -she was at [facility]; in [place]; and in [place] -she states that she attempted suicide 2 times in the past -once she tried to drink herself to on [address] -the 2nd she took a bottle of pills she found at a concert -she states that she is not sure what they were -but she slept for 3 days -she states that the 1st time she was inpatient she wasn't suicidal;she was really depressed; after her 1st divorce. She states that she has told her PCP that she doesn't feel the effexor is working. -she is currently on 225mg daily of this -has also tried zoloft in the past She is still depressed. Still has thoughts of wanting to kill herself. she states that they are not as bad as they were when she was at home today by herself. -her was at work; [employer] -she states that she doesn't' want to be in the hospital -but knows that she needs to go -she is willing for inpatient treatment for medication stabilization RECOMMENDATIONS: 1. Petition to [facility] for psychiatri
[2021-09-26 16:21] LABS: Troponin I < 0.01 ng/ml (0.00-0.034)
--- NOTE | 2021-09-26 16:21 | PC.NURSE ---
Hadn't gotten a call back from Judge Jacobson, called him again and he stated he was in town that he would come sign them in person.
--- NOTE | 2021-09-26 16:30 | PC.NURSE ---
Grass Cutter Indira here at this time.
--- NOTE | 2021-09-26 16:55 | PC.NURSE ---
called [facility] dispatch for transport of pt to [facility], dispatcher states that there are not any available officers at this time that pt will have to wait until more officers come out at 1900 to be taken to other facility. Called dispatch back to let them know that pt's address is a [facility] address to see if that would make a difference in availability for transport ('s office) dispatcher states that he will check into that and give me a call back once he has an answer.
--- NOTE | 2021-09-26 17:21 | PC.NURSE ---
Pt up to the restroom
--- NOTE | 2021-09-26 17:21 | PC.NURSE ---
ordered pt a supper tray.
[2021-09-26 17:41] LABS: Barbiturates Screen,Urine Negative ng/ml (<200)
[2021-09-26 17:42] LABS: Benzodiazepines Screen,Urine Positive ng/ml (<200)
[2021-09-26 17:43] LABS: Amphetamine/Metha Screen,Urine Negative ng/ml (<1000); Cannabinoid Screen,Urine Negative ng/ml (<50)
[2021-09-26 17:44] LABS: Cocaine Screen,Urine Negative ng/ml (<300)
[2021-09-26 17:45] LABS: Methadone Screen,Urine Negative ng/ml (<300); Opiate Screen,Urine Positive ng/ml (<300)
[2021-09-26 17:46] LABS: Phencyclidine Screen,Urine Negative ng/ml (<25)
== END 2021-09-26 17:50 | disposition short-term general hospital (02) ==
PROVIDERS: Emergency Provider Emergency Medicine
DX: R45.851 Suicidal ideations (principal); F41.8 Other specified anxiety disorders; K21.9 Gastro-esophageal reflux disease without esophagitis; I10 Essential (primary) hypertension; E78.5 Hyperlipidemia, unspecified; M79.7 Fibromyalgia; Z88.5 Allergy status to narcotic agent; Z79.899 Other long term (current) drug therapy
CPT/HCPCS: 36415; 71045; 80053; 80305; 80329; 84484; 85025; 93005; 99283

== ENCOUNTER 2021-12-24 19:07 | Observation (INO) | payer MEDICARE, SELFPAY ==
[2021-12-24 18:53] VITALS: BP 173/88; PULSE 121; RESP 24; TEMP 36.6; O2SAT 91; BMI 36.0
--- NOTE | 2021-12-24 18:58 | HMH.EDSOB ---
ED Disposition Clinical Impression: Esophageal obstruction due to food impaction Disposition: Still a Patient Condition on Discharge: Fair Referrals: Valente Matos JR, MD [Primary Care Provider] - - Critical Care Critical Care Time: No Attestation: On , the high probability of a clinically significant, sudden or life threatening deterioration of the following system(s) required my full and direct attention, intervention and personal management. The time I documented below is in addition to time spent performing reported procedures but includes the following listed in this critical care notation. Medical Decision Making - Arthur Inquiry Pt receiving controlled substance: No Vital Signs: 12/24/21 18:53 12/24/21 19:02 12/24/21 19:26 Temperature 97.9 F Temperature Source Oral Pulse Rate 89 63 Pulse Rate [Left Radial] 121 H Respiratory Rate 24 16 Blood Pressure 179/96 H 174/97 H Blood Pressure [Right Arm] 173/88 H Blood Pressure Mean [Right Arm] 116 02 Sat by Pulse Oximetry 91 L 89 L 99 Oxygen Delivery Method Nasal Cannula Room Air Room Air Oxygen Flow Rate (LPM) 4 Orders (Tests/Meds): ED MEDICATIONS Discontinued Medications Generic Name Dose Route Start Last Admin Trade Name Freq PRN Reason Stop Dose Admin Glucagon 1 mg 12/24/21 19:16 12/24/21 19:17 Glucagon 1 Mg/Ml Vial IV 12/24/21 19:17 1 mg ONCE ONE Administration - Radiology Data #1 Image(s): Chest Preliminary Findings: Normal/NAD Medical Decision Narrative: The patient appears to have an esophageal foreign body. Surgery was consulted. Dr. Perera will see the patient and take her to endoscopy. Resp/SOB HPI - General Stated Complaint: Choking Time Seen by Provider: 12/24/21 18:58 Mode of Arrival: EMS - History of Present Illness The patient thinks that she may have aspirated some chicken and/or hernandez. She feels short of breath. Her voice is not normal. - Related Data Home Medications Medication Instructions Recorded Confirmed mometasone-formoterol HFA 100 2 puff INHALATION BID 12/13/17 03/24/21 mcg-5 mcg/actuation aerosol inhaler Amlodipine Besylate [Amlodipine 5 mg PO DAILY 01/14/20 03/23/21 5mg tab] Hydralazine HCl [Hydralazine HCl 25 mg PO QID 01/14/20 03/24/21 25mg Tablet] Ropinirole HCl [Requip 1mg Tablet] 1 mg PO DAILY 01/14/20 03/23/21 Atorvastatin Calcium [Lipitor 40mg 40 mg PO HS 04/29/20 03/23/21 Tablet*] Aspirin [Aspirin 81mg EC Tab] 81 mg PO DAILY 03/24/21 03/24/21 Metoprolol Tartrate [Lopressor 50 mg PO BID 03/24/21 03/24/21 50mg tablet] Multivit-Min/Iron/Folic Acid/K 1 each PO DAILY 03/24/21 03/24/21 [One Daily Women's Multivitamin] Pantoprazole Sodium [Protonix 40mg 40 mg PO BID 03/24/21 03/24/21 tablet] Venlafaxine HCl [Effexor XR 75mg 225 mg PO DAILY 03/24/21 03/24/21 capsule] diazePAM [Diazepam 10 mg tablet] 10 mg PO TIDP PRN 03/24/21 03/24/21 Previous Rx's Medication Instructions Recorded methylPREDNISolone [Medrol 4mg 4 mg PO DIRECTED #21 tab 03/24/21 tab] Allergies Allergy/AdvReac Type Severity Reaction Status Date / Time diphenhydramine Allergy Unknown AGITATION Verified 02/18/18 20:13 [From BENADRYL] oxycodone [From PERCOCET] Allergy Unknown Verified 02/18/18 20:13 promethazine [From PHENERGAN] Allergy Unknown AGITATION Verified 02/18/18 20:13 sumatriptan [From IMITREX] Allergy Unknown Verified 02/18/18 20:13 [facility] History - Hepatitis A Screen Drug use history?: No Attestation statement:: This patient has been screened for Hepatitis A risk factors. Medical History: Reports:: Anxiety, Arrhythmia, Depression, Gastroesophageal Reflux Disease(GERD), Heart Murmur, Hyperlipidemia, Hypertension Denies:: Atherosclerotic Heart Disease, Cancer, Congestive Heart Failure, Chronic Obstructive Pulmonary Disease (COPD), Diabetes Mellitus Type 1, Diabetes Mellitus Type 2, Internal Pacemaker, MRSA Ot
--- NOTE | 2021-12-24 19:00 | XR_ITS ---
PROCEDURE INFORMATION: Exam: XR Chest Exam date and time: 12/24/2021 7:04 PM Age: 61 years old Clinical indication: Dyspnea TECHNIQUE: Imaging protocol: XR of the chest. Views: 1 view. COMPARISON: CR XR CHEST PORTABLE 09/26/2021 1:02 PM FINDINGS: Lungs: Unremarkable. No consolidation. Pleural spaces: Unremarkable. No pleural effusion. No pneumothorax. Heart/Mediastinum: Unremarkable. No cardiomegaly. Bones/joints: Unremarkable. IMPRESSION: No acute findings.
[2021-12-24 19:02] VITALS: BP 179/96; PULSE 89; O2SAT 89
[2021-12-24 19:04] VITALS: BMI 36.0
[2021-12-24 19:26] VITALS: BP 174/97; PULSE 63; RESP 16; O2SAT 99
--- NOTE | 2021-12-24 20:50 | HMH.GSCON ---
*Admission Date: 12/24/21 *Reason for consult:: Esophageal obstruction secondary to food impaction *History of present illness: Patient is a 61-year-old female from [facility]. She is somewhat of a poor historian. She was eating chicken with hernandez about 2 hours prior to consultation. She has been unable to swallow secretions. She was brought to the emergency department and surgical consultation was obtained. Review of Systems - Review of Systems Review of systems:: pertinent systems reviewed and negative unless documented below [facility] History I have reviewed the patient's past medical history: Yes Medical History: Reports:: Anxiety, Arrhythmia, Depression, Gastroesophageal Reflux Disease(GERD), Heart Murmur, Hyperlipidemia, Hypertension Denies:: Atherosclerotic Heart Disease, Cancer, Congestive Heart Failure, Chronic Obstructive Pulmonary Disease (COPD), Diabetes Mellitus Type 1, Diabetes Mellitus Type 2, Internal Pacemaker, MRSA *Have you ever received a pneumonia vaccine?: Yes *Have you received a flu vaccine this season?: Yes Other Medical History: Reports: Arthritis, Cataracts, Fibromyalgia Laterality Cases: Left: Arthroscopy Knee, Bilateral: Carpal Tunnel Release Other Surgeries: Yes: Appendectomy, Cardiac Catheterization, Cholecystectomy, Hysterectomy-Total, Other (Cataract removal). No: Pacemaker Amputation: No Fractures: No - *Social History Smoking Status: Never smoker Alcohol Intake: never Alcohol Intake Frequency:: holidays/special occasions only *Occupational Status:: employed Housing: house Household Members: spouse *Travel in the last 8 weeks: None - Psychiatric History Pschychiatric History:: Reports:: Anxiety, Depression Family Hx:: Cancer, Coronary Artery Disease Meds Home Medications Medication Instructions Recorded Confirmed Type mometasone-formoterol HFA 100 2 puff INHALATION BID 12/13/17 03/24/21 History mcg-5 mcg/actuation aerosol inhaler Amlodipine Besylate [Amlodipine 5 mg PO DAILY 01/14/20 03/23/21 History 5mg tab] Hydralazine HCl [Hydralazine HCl 25 mg PO QID 01/14/20 03/24/21 History 25mg Tablet] Ropinirole HCl [Requip 1mg Tablet] 1 mg PO DAILY 01/14/20 03/23/21 History Atorvastatin Calcium [Lipitor 40mg 40 mg PO HS 04/29/20 03/23/21 History Tablet*] Aspirin [Aspirin 81mg EC Tab] 81 mg PO DAILY 03/24/21 03/24/21 History Metoprolol Tartrate [Lopressor 50 mg PO BID 03/24/21 03/24/21 History 50mg tablet] Multivit-Min/Iron/Folic Acid/K 1 each PO DAILY 03/24/21 03/24/21 History [One Daily Women's Multivitamin] Pantoprazole Sodium [Protonix 40mg 40 mg PO BID 03/24/21 03/24/21 History tablet] Venlafaxine HCl [Effexor XR 75mg 225 mg PO DAILY 03/24/21 03/24/21 History capsule] diazePAM [Diazepam 10 mg tablet] 10 mg PO TIDP PRN 03/24/21 03/24/21 History methylPREDNISolone [Medrol 4mg 4 mg PO DIRECTED #21 tab 03/24/21 Rx tab] Allergies Allergy/AdvReac Type Severity Reaction Status Date / Time diphenhydramine Allergy Unknown AGITATION Verified 02/18/18 20:13 [From BENADRYL] oxycodone [From PERCOCET] Allergy Unknown Verified 02/18/18 20:13 promethazine [From PHENERGAN] Allergy Unknown AGITATION Verified 02/18/18 20:13 sumatriptan [From IMITREX] Allergy Unknown Verified 02/18/18 20:13 Exam Vital signs and Labs for Last 24 Hours: Temp Pulse Resp BP Pulse Ox 97.9 F 63 16 174/97 H 99 12/24/21 18:53 12/24/21 19:26 12/24/21 19:26 12/24/21 19:26 12/24/21 19:26 I & O for Last 24 hours: Intake & Output 12/22/21 12/23/21 12/24/21 12/25/21 11:59 11:59 11:59 11:59 Weight 230 lb - Constitutional no acute distress - *Routine HEENT Exam Head: Present: normocephalic Eye: Present: EOMI, PERRL ENT: Present: mucous membranes moist - *Routine Neck Exam Present: supple. Absent: lymphadenopathy - *Routine Respiratory Exam Present: CTA bilaterally - *Routine Cardiovascular Exam Present: RRR - *R
[2021-12-24 21:14] LABS: Coronavirus 19, PCR Not Detected (NotDetected); Influenza A, PCR Not Detected (NotDetected); Influenza B, PCR Not Detected (NotDetected)
--- NOTE | 2021-12-24 21:17 | PC.NURSE ---
Nic was notified of patients procedure and told to come to the hospital before she can go to the or to do the procedure. He states that he is on his way. Phone consent obtained from patients . Verified with nurse Cinda from the ER.
[2021-12-24 21:24] VITALS: BP 157/91; PULSE 63; RESP 18; TEMP 36.6; O2SAT 99
--- NOTE | 2021-12-24 22:58 | SUR.OPER ---
late entry 2215 Pt moved from scope room to OR. See anesthesia note for further information.
--- NOTE | 2021-12-24 23:09 | HMH.ANESCL ---
[facility] Anesthesia Checklist - Patient Identification Patient Identification: Arm Band - Structural Data Admitted From: Emergency Dept Planned Operative Procedure/s: EGD - NPO Status Verified Time NPO: 18:00 - Airway Assessment Dentition: Edentulous - Neurological Assessment Level of Consciousness: Awake, Alert - Anesthesia Plan ASA Class: III Anesthesia Type: General [facility] History Medical History: Reports:: Anxiety, Arrhythmia, Depression, Gastroesophageal Reflux Disease(GERD), Heart Murmur, Hyperlipidemia, Hypertension Denies:: Atherosclerotic Heart Disease, Cancer, Congestive Heart Failure, Chronic Obstructive Pulmonary Disease (COPD), Diabetes Mellitus Type 1, Diabetes Mellitus Type 2, Internal Pacemaker, MRSA *Have you ever received a pneumonia vaccine?: Yes *Have you received a flu vaccine this season?: Yes Other Medical History: Reports: Arthritis, Cataracts, Fibromyalgia Anesthesia experience/problems:: none Laterality Cases: Left: Arthroscopy Knee, Bilateral: Carpal Tunnel Release Other Surgeries: Yes: Appendectomy, Cardiac Catheterization, Cholecystectomy, Hysterectomy-Total, Other (Cataract removal). No: Pacemaker Amputation: No Fractures: No - *Social History Smoking Status: Never smoker Alcohol Intake: never Alcohol Intake Frequency:: holidays/special occasions only Substance Use Type: denies use *Occupational Status:: employed Housing: house Household Members: spouse *Travel in the last 8 weeks: None - Psychiatric History Pschychiatric History:: Reports:: Anxiety, Depression Family Hx:: Cancer, Coronary Artery Disease
--- NOTE | 2021-12-24 23:12 | PC.NURSE ---
Patient sedated and oxygen saturation abruptly falls to 70s to 80s. Mask placed with jaw thrust. Patient breathing and co2 detected yet saturation remained low. BMV given and saturation increase to above 94%. Patient allowed to awake. VSS. Attempted to sedate and sats fell again to 80's. Decision made to take patient to OR for general anesthesia and secured airway.
[2021-12-24 23:46] VITALS: BMI 34.3
--- NOTE | 2021-12-24 23:50 | HMH.GSHP ---
HPI HPI: Patient is a 61-year-old female from [facility]. She is somewhat of a poor historian. She was eating chicken with hernandez about 2 hours prior to consultation. She has been unable to swallow secretions. She was brought to the emergency department and surgical consultation was obtained. Plan was made for emergent EGD. [facility] History I have reviewed the patient's past medical history: Yes Medical History: Reports:: Anxiety, Arrhythmia, Depression, Gastroesophageal Reflux Disease(GERD), Heart Murmur, Hyperlipidemia, Hypertension Denies:: Atherosclerotic Heart Disease, Cancer, Congestive Heart Failure, Chronic Obstructive Pulmonary Disease (COPD), Diabetes Mellitus Type 1, Diabetes Mellitus Type 2, Internal Pacemaker, MRSA *Have you ever received a pneumonia vaccine?: Yes *Have you received a flu vaccine this season?: Yes Other Medical History: Reports: Arthritis, Cataracts, Fibromyalgia Anesthesia experience/problems:: none Laterality Cases: Left: Arthroscopy Knee, Bilateral: Carpal Tunnel Release Other Surgeries: Yes: Appendectomy, Cardiac Catheterization, Cholecystectomy, Hysterectomy-Total, Other (Cataract removal). No: Pacemaker Amputation: No Fractures: No - *Social History Smoking Status: Never smoker Alcohol Intake: never Alcohol Intake Frequency:: holidays/special occasions only Substance Use Type: denies use *Occupational Status:: employed Housing: house Household Members: spouse *Travel in the last 8 weeks: None - Psychiatric History Pschychiatric History:: Reports:: Anxiety, Depression Family Hx:: Cancer, Coronary Artery Disease Review of Systems - Review of Systems Review of systems:: pertinent systems reviewed and negative unless documented below Meds Home Medications Medication Instructions Recorded Confirmed Type mometasone-formoterol HFA 100 2 puff INHALATION BID 12/13/17 03/24/21 History mcg-5 mcg/actuation aerosol inhaler Amlodipine Besylate [Amlodipine 5 mg PO DAILY 01/14/20 03/23/21 History 5mg tab] Hydralazine HCl [Hydralazine HCl 25 mg PO QID 01/14/20 03/24/21 History 25mg Tablet] Ropinirole HCl [Requip 1mg Tablet] 1 mg PO DAILY 01/14/20 03/23/21 History Atorvastatin Calcium [Lipitor 40mg 40 mg PO HS 04/29/20 03/23/21 History Tablet*] Aspirin [Aspirin 81mg EC Tab] 81 mg PO DAILY 03/24/21 03/24/21 History Metoprolol Tartrate [Lopressor 50 mg PO BID 03/24/21 03/24/21 History 50mg tablet] Multivit-Min/Iron/Folic Acid/K 1 each PO DAILY 03/24/21 03/24/21 History [One Daily Women's Multivitamin] Pantoprazole Sodium [Protonix 40mg 40 mg PO BID 03/24/21 03/24/21 History tablet] Venlafaxine HCl [Effexor XR 75mg 225 mg PO DAILY 03/24/21 03/24/21 History capsule] diazePAM [Diazepam 10 mg tablet] 10 mg PO TIDP PRN 03/24/21 03/24/21 History methylPREDNISolone [Medrol 4mg 4 mg PO DIRECTED #21 tab 03/24/21 Rx tab] Allergies Allergy/AdvReac Type Severity Reaction Status Date / Time diphenhydramine Allergy Unknown AGITATION Verified 02/18/18 20:13 [From BENADRYL] oxycodone [From PERCOCET] Allergy Unknown Verified 02/18/18 20:13 promethazine [From PHENERGAN] Allergy Unknown AGITATION Verified 02/18/18 20:13 sumatriptan [From IMITREX] Allergy Unknown Verified 02/18/18 20:13 Exam Vital signs and Labs for Last 24 Hours: Temp Pulse Resp BP Pulse Ox 97.9 F 63 18 157/91 H 99 12/24/21 21:24 12/24/21 21:24 12/24/21 21:24 12/24/21 21:24 12/24/21 19:26 Laboratory Results - last 24 hr 12/24/21 21:10: SARS-CoV-2 (PCR) Not detected, Influenza A Untype (PCR) Not detected, Influenza Type B (PCR) Not detected I & O for Last 24 hours: Intake & Output 12/22/21 12/23/21 12/24/21 12/25/21 11:59 11:59 11:59 11:59 Weight 230 lb - Constitutional no acute distress - *Routine HEENT Exam Head: Present: normocephalic Eye: Present: EOMI, PERRL ENT: Present: mucous membranes moist - *Routine Neck Exam Present:
--- NOTE | 2021-12-24 23:52 | HMH.SCOPE ---
- Procedure: Date: 12/24/21 Patient Date of :: 1960 Procedure Performed:: Esophagogastroduodenoscopy with retrieval of foreign body food impaction Rigid laryngoscopy Indications:: Patient is a 61-year-old female who presented to the emergency department with signs and symptoms of esophageal obstruction secondary to food impaction. Surgical consultation was obtained. Arrangements were made for emergent EGD Performing Provider:: Maik Perera MD Referring Provider:: Vlad Palomares Sedation:: MAC sedation conversion to general endotracheal anesthesia Procedure:: Consent was obtained. Patient was taken to endoscopy procedure room. Adequate intravenous sedation was achieved with anesthesia administration of propofol. Patient had very tenuous saturations prior to insertion of the endoscope. She required nonrebreather and supplemental oxygen via bag valve mask. Ultimately she had adequate oxygenation and endoscope was inserted. Large esophageal food impaction was encountered in proximal esophagus at approximately 15 cm from the incisors. It was tightly impacted. Given the location of the food impaction and patient's tenuous oxygenation decision was made to transfer the patient to the operating room and administer general endotracheal anesthesia. Patient was taken to the operating room. General endotracheal anesthesia was initiated. The rigid laryngoscope was inserted into the proximal oropharynx. With the grasping forceps several pieces of chicken were able to be removed. The Olympus flexible endoscope was then inserted via the oropharynx. Esophagus was cannulated. Tightly impacted large meat food bolus was encountered at 15 cm from incisors. Multiple attempts were made to retrieve this with the Caesar grasping forceps and multiple uses of the Courtney net retrieval device. Multiple small amounts of meat material is able to be slowly removed. Again the rigid laryngoscope was inserted. Using the grasping forceps several pieces of meat were able to be retrieved. At this time the meat food bolus advanced distally into the esophagus. Therefore once again the Olympus endoscope was utilized. The esophagus was cannulated. Once again with repeated use of the seeds a grasping forcep and several of the Courtney net retrieval devices small amounts of the meat food bolus were able to be retrieved. Ultimately the remaining large meat bolus advanced into the gastric lumen. Endoscope was able to be advanced to the gastric lumen. Retroflexion revealed no evidence of any appreciable hiatal hernia. Gastroesophageal junction was at approximately 38 cm from the incisors. Stomach was desufflated and the endoscope was withdrawn. Note: Procedure duration approximately 2 hours 10 minutes Findings:: Large impacted meat bolus in the proximal esophagus at 15 cm from the incisors Gastroesophageal junction at 38 cm Recommendations:: She will be admitted due to the need for general anesthesia and prolonged procedure with manipulation of the aerodigestive tract. Complications:: None immediately apparent Estimated blood obtained (mL): 0
[2021-12-24 23:54] VITALS: BP 138/73; PULSE 81; RESP 20; TEMP 36.1; O2SAT 99
--- NOTE | 2021-12-24 23:59 | HMH.ANESI ---
[facility] Anesthesia Record Part I Intake, IV Amount: 1,000 Estimated blood loss (mL): 0 Urine output (mL): 0 Blood Products used (#): none Blood Pressure: 138/73 SaO2: 99 Pulse Rate: 82 Respiratory Rate: 12 Temperature: 97.0 F Patient is:: Drowsy Stable to PACU at:: 22:50
[2021-12-25] VITALS (19 sets, daily range): BP systolic 115–164; BP diastolic 62–98; PULSE 82–103; RESP 12–20; TEMP 36.1–36.8; O2SAT 90–99
--- NOTE | 2021-12-25 | ECG_ITS ---
APPROVED REPORT Exam: Resting ECG HR:92 bpm ECG Measurements Heart Rate 92 AXES SC 138 P 57 QRSd 97 QRS -9 QT 398 T 24 QTc 448 Conclusion SINUS RHYTHM POSSIBLE RIGHT VENTRICULAR CONDUCTION DELAY [RSR (QR) IN V1/V2] NONSPECIFIC T-WAVE ABNORMALITY BORDERLINE ECG UNCONFIRMED REPORT Electronically signed by : Aleks Aquino MD 12/25/2021 08:20:16
--- NOTE | 2021-12-25 01:14 | SUR.PHASEI ---
late entry 0010 pt's heart rate began to fluctuate. Pt states she felt fine and denied chest pain or soa. ANETTE Bradford notified. ANETTE Bradford ordered EKG. ANETTE Bradford also returned to pt bedside before respiratory performed EKG. ANETTE Bradford switched EKG leads around and heart rate was normal again. ANETTE Bradford stated that pt had a lot of artifact on EKG which was showing and increase in heart rate. No new orders were given at this time. ANETTE Bradford was okay with pt going to med/surg room. 0020 RT performed EKG. RT also stated he was having a hard time obtaining a good EKG related to artifact. EKG was obtained and placed in pt chart.
--- NOTE | 2021-12-25 01:20 | PC.NURSE ---
LATE ENTRY PT ARRIVED TO FLOOR VIA STRETCHER FROM OR @ [id number]
--- NOTE | 2021-12-25 01:21 | SUR.PHASEI ---
late entry 0028 called and given report to Víctor Dowling med/director of surgery 0038 pt transported via stretcher to med/surg room 215. vital signs stable. Pt transported on 4L oxygen via NC. pt did well during transport. Upon arrival to med/surg room, pt was able to transfer to bed with assistance. pt left in care of staci Saleh/director of surgery at bedside.
--- NOTE | 2021-12-25 08:55 | HMH.GSPN ---
Subjective Patient reports: feels better Progress Note: A&P Assessment and Plan for All Diagnoses:: Discharge home Exam Vital signs and Labs for Last 24 Hours: Temp Pulse Resp BP Pulse Ox 98.2 F 98 H 18 154/98 H 96 12/25/21 07:35 12/25/21 07:35 12/25/21 07:35 12/25/21 07:35 12/25/21 07:35 Laboratory Results - last 24 hr 12/24/21 21:10: SARS-CoV-2 (PCR) Not detected, Influenza A Untype (PCR) Not detected, Influenza Type B (PCR) Not detected I & O for Last 24 hours: Intake & Output 12/22/21 12/23/21 12/24/21 12/25/21 11:59 11:59 11:59 11:59 Intake Total 1682 / 1682 Balance 1682 / 1682 Weight 219 lb - Constitutional no acute distress - *Routine Abdominal Exam Present: soft
--- NOTE | 2021-12-25 08:59 | HMH.DCSUM ---
General - General Admission date:: 12/24/21 Discharge date: 12/25/21 HPI HPI: Patient is a 61-year-old female with cognitive deficit from dementia who resides in [facility]. She is somewhat of a poor historian. She was eating chicken with hernandez about 2 hours prior to consultation in the emergency department. She has been unable to swallow secretions. She was brought to the emergency department by EMS and surgical consultation was obtained. Plan was made for emergent EGD. Hospital Course Hospital Course: Patient was taken to endoscopy procedure room. When she was given intravenous sedation she did have diminished oxygen saturations requiring supplemental oxygen via nonrebreather mask and [id number]. Ultimately she underwent limited endoscopy and she was found to have tight esophageal obstruction secondary to food impaction in the proximal esophagus at approximately 15 cm. Due to her tenuous oxygenation and the location of the food impaction in nature she was taken to the operating room where she underwent induction of general endotracheal anesthesia. With a combination of use of laryngoscope and flexible esophagoscope using a variety of technique ultimately the food impaction was able to be relieved with piecemeal extraction with ultimate advancement of the remainder of the large food bolus into the gastric lumen. Please see operative dictation for complete details. Due to the prolonged procedure, her tenuous oxygenation, and manipulation of the aerodigestive tract as well as the late hour upon completion plan was made for admission overnight for observation. Patient was admitted overnight. She was given a clear liquid diet. She felt much better. She denied pain. She was tolerating clear liquids without issue. Interestingly the following morning she asked about pain medicine although she was not having any pain. Arrangements were made for discharge home. She may benefit from modified barium swallow and speech therapy evaluation as much of this may be functional. Objective Vital signs: Temp Pulse Resp BP Pulse Ox 98.2 F 98 H 18 154/98 H 96 12/25/21 07:35 12/25/21 07:35 12/25/21 07:35 12/25/21 07:35 12/25/21 07:35 Results Labs on day of discharge: Labs from last 24 hours 12/24/21 21:10 SARS-CoV-2 (PCR) Not detected Influenza A Untype (PCR) Not detected Influenza Type B (PCR) Not detected Discharge Plan - Patient Discharge Instructions ACTIVITY: Continue current activity DIET: other Additional Instructions: Full liquid diet for 24 hours. Then soft diet with no meat. Patient Instructions: DI for Esophageal Obstruction-Child - Follow up Plan Follow up with: Maik Perera MD [Staff Physician] - 2 weeks Valente Matos JR, MD [Primary Care Provider] - Disposition: Home, Self-Care Condition at discharge:: Improved Home Medications: Home Medications Medication Instructions Recorded Confirmed Type mometasone-formoterol HFA 100 2 puff INHALATION BID 12/13/17 03/24/21 History mcg-5 mcg/actuation aerosol inhaler Amlodipine Besylate [Amlodipine 5 mg PO DAILY 01/14/20 03/23/21 History 5mg tab] Hydralazine HCl [Hydralazine HCl 25 mg PO QID 01/14/20 03/24/21 History 25mg Tablet] Ropinirole HCl [Requip 1mg Tablet] 1 mg PO DAILY 01/14/20 03/23/21 History Atorvastatin Calcium [Lipitor 40mg 40 mg PO HS 04/29/20 03/23/21 History Tablet*] Aspirin [Aspirin 81mg EC Tab] 81 mg PO DAILY 03/24/21 03/24/21 History Metoprolol Tartrate [Lopressor 50 mg PO BID 03/24/21 03/24/21 History 50mg tablet] Multivit-Min/Iron/Folic Acid/K 1 each PO DAILY 03/24/21 03/24/21 History [One Daily Women's Multivitamin] Pantoprazole Sodium [Protonix 40mg 40 mg PO BID 03/24/21 03/24/21 History tablet] Venlafaxine HCl [Effexor XR 75mg 225 mg PO DAILY 03/24/21 03/24/21 History capsule] diazePAM [Diazepam 10 mg tablet] 10 mg PO TIDP PRN 03/24/21 08
--- NOTE | 2021-12-25 09:17 | PC.NURSE ---
Spoke with . He will come up after he gets ready to take pt home.
[2021-12-26 07:31] VITALS: BP 115/86; PULSE 90; TEMP 36.4
--- NOTE | 2021-12-26 07:31 | P.PN_ITS ---
[facility] Anesthesia Record Part II Discharge Time: 00:38 Destination: Second Floor PACU nurse assessment reviewed?: Yes Patient Condition:: Good Anesthesia Complications:: None Swallowing reflex intact?: Yes Cyanosis?: No Blood Pressure: 115/86 Pulse Rate: 90 Temperature: 97.6 F Mental Status: Alert & Oriented Pain level:: 0 Nausea and/or vomitting:: None Intake, IV Amount: 0
--- NOTE | 2021-12-27 13:29 | CARE MANAGER ---
Contacted patient's who states patient is doing much better. He has not made any appointments yet, but he will. He denies any other questions or concerns. LILLIE Goodrich
== END 2021-12-25 10:40 | disposition home or self-care (01) ==
LOC: ER 20:26 → SDC 21:44 → 2ND 23:42
PROVIDERS: Admitting Provider Surgery; Emergency Provider Emergency Medicine; PCP Family Medicine; Visit Provider Surgery
PROC: 0DJ08ZZ Inspection of Upper Intestinal Tract, Via Natural or Artificial Opening Endoscopic (ICD-10-PCS; CPT 43235; principal; 2021-12-24 21:00)
DX: T18.128A Food in esophagus causing other injury, initial encounter (principal); K22.2 Esophageal obstruction; K21.9 Gastro-esophageal reflux disease without esophagitis; Z79.899 Other long term (current) drug therapy; I10 Essential (primary) hypertension; E78.5 Hyperlipidemia, unspecified; Z20.822 Contact with and (suspected) exposure to COVID-19
CPT/HCPCS: 43247; G0378; 71045; 93005; 99285; C9803; J1610; J2405; U0003; U0005

== ENCOUNTER 2022-02-06 16:48 | Emergency (ER) | payer MEDICARE, SELFPAY ==
[2022-02-06 16:48] VITALS: BP 128/87; PULSE 75; RESP 15; TEMP 36.3; O2SAT 99; BMI 41.6
[2022-02-06 16:49] VITALS: BMI 25.0
--- NOTE | 2022-02-06 16:50 | CT_ITS ---
PROCEDURE INFORMATION: Exam: CT Head Without Contrast Exam date and time: 02/06/22 04:34 PM Age: 61 years old Clinical indication: Stroke-like symptoms; Additional info: Stroke alert TECHNIQUE: Imaging protocol: Computed tomography of the head without contrast. Radiation optimization: All CT scans at this facility use at least one of these dose optimization techniques: automated exposure control; mA and/or kV adjustment per patient size (includes targeted exams where dose is matched to clinical indication); or iterative reconstruction. Other technique: STROKE PROTOCOL was implemented. COMPARISON: CT HEAD/BRAIN WO CON 02/23/21 03:16 PM FINDINGS: Brain: Normal. No hemorrhage. Unremarkable white matter. No mass effect. Cerebral ventricles: No ventriculomegaly. Paranasal sinuses: Visualized sinuses are unremarkable. No fluid levels. Mastoid air cells: Visualized mastoid air cells are well aerated. Bones/joints: Unremarkable. No acute fracture. Soft tissues: Unremarkable. IMPRESSION: No acute intracranial abnormality. ASSESSMENT: ASPECTS ([place] Stroke Program Early CT Score) is 10.
--- NOTE | 2022-02-06 16:50 | PC.NURSE ---
EMS arrived with pt, stroke alert called and pt taken immediately to CT
--- NOTE | 2022-02-06 16:56 | PC.NURSE ---
pt returned from CT, at bedside assessing patient. Glen Au, RN also at bedside
--- NOTE | 2022-02-06 17:03 | PC.NURSE ---
speaking with LEXX
--- NOTE | 2022-02-06 17:04 | XR_ITS ---
PROCEDURE INFORMATION: Exam: XR Chest Exam date and time: 02/06/22 05:10 PM Age: 61 years old Clinical indication: Shortness of breath; Additional info: SOB TECHNIQUE: Imaging protocol: Radiologic exam of the chest. Views: 1 view. COMPARISON: CR XR CHEST PORTABLE 12/24/21 07:04 PM FINDINGS: Lungs: Unremarkable. No consolidation. Pleural spaces: Unremarkable. No pleural effusion. No pneumothorax. Heart/Mediastinum: Unremarkable. No cardiomegaly. Bones/joints: Unremarkable. IMPRESSION: No acute findings.
[2022-02-06 17:12] LABS: Chloride 108 mmol/L (98-107)
[2022-02-06 17:13] LABS: Potassium 4.1 mmoL/L (3.5-5.1); Sodium 144 mmol/L (136-145)
[2022-02-06 17:15] LABS: Alanine Aminotransferase 44 U/L (12-78); Alkaline Phosphatase 151 U/L (38-126); Anion Gap 11.1 mEq/L (5-15); Aspartate Amino Transferase 78 U/L (14-36); Bilirubin,Total 0.7 mg/dl (0.2-1.3); Blood Urea Nitrogen 18 mg/dl (7-17); Calcium 9.5 mg/dl (8.4-10.2); Carbon Dioxide 29 mmol/L (22.0-30.0); Creatinine Clearance Estimated 62 mL/min (50-200); Estimated Glomerular Filt Rate 56 ml/min (>60); GFR (African American) 68 ML/MIN (>60); Glucose 123 mg/dl (74-100); Lipase 35 U/L (23-300)
[2022-02-06 17:16] LABS: Albumin/Globulin Ratio 1.3 (1.1-1.8)
[2022-02-06 17:18] LABS: Microscopic, Urine URINE MICROSCOPIC (MICROSCOPIC)
[2022-02-06 17:19] LABS: Basophils # 0.1 K/mm3 (0-0.2); Basophils % 0.9 % (0.1-2.0); Eosinophils % 0.2 % (0.1-12.0); Hematocrit 45.6 % (37.0-47.0); Hemoglobin 14.9 g/dL (12.2-16.2); Lymphocytes # 0.8 K/mm3 (0.7-4.5); Mean Corpuscular HGB Conc 32.7 g/dL (31.8-35.4); Mean Corpuscular Hemoglobin 29.8 pg (27.0-31.2); Mean Corpuscular Volume 91.1 fl (81-99); Mean Platelet Volume 8.3 fl (7.4-10.4); Monocytes # 0.9 K/mm3 (0.1-1.0); Monocytes % 7.5 % (1.7-9.3); Neutrophils % 84.5 % (37.0-80.0); Platelet Count 315 K/mm3 (142-424); Red Cell Distribution Width 13.9 % (11.5-17.5); White Blood Count 11.9 K/mm3 (4.8-10.8)
[2022-02-06 17:21] LABS: Appearance,Urine CLEAR (Clear); Blood, Urine 2+ (Negative); Color,Urine DK YELLOW (Yellow); Glucose,Urine (UA) Negative (Negative); Ketones,Urine 1+ (Negative); Leukocyte Esterase,Urine Negative (Negative); Nitrate,Urine Negative (Negative); PH,Urine 5.5 (5.0-8.5); Protein,Urine 2+ (Negative); Specific Gravity, Urine >= 1.030 (1.005-1.030); Urobilinogen,Urine 0.2 EU/dl (0.2)
[2022-02-06 17:25] LABS: NT Pro Brain Natriuretic Pep. 127 pg/mL (0-125)
[2022-02-06 17:32] LABS: Troponin I < 0.01 ng/ml (0.00-0.034)
--- NOTE | 2022-02-06 17:42 | PC.NURSE ---
pt bm cleaned, changed into clean gown and bishop placed. Pt tolerated well
[2022-02-06 17:47] LABS: Thyroid Stimulating Hormone 2.45 uIU/mL (0.465-4.68)
--- NOTE | 2022-02-06 17:53 | [facility].EDGENADL ---
ED Disposition Clinical Impression: Altered mental status Qualifiers: Altered mental status type: transient alteration of awareness Qualified Code(s): R40.4 - Transient alteration of awareness UTI (urinary tract infection) Qualifiers: Urinary tract infection type: acute cystitis Hematuria presence: with hematuria Qualified Code(s): N30.01 - Acute cystitis with hematuria Disposition: Home, Self-Care Condition on Discharge: Good Prescriptions: cephALEXin [Cephalexin 500mg Tab] 500 mg PO BID #14 tab Transmission Status: Pending to [facility] [id number] Referrals: Provider,Referral, [Primary Care Provider] - - Critical Care Critical Care Time: No Attestation: On 02/06/22, the high probability of a clinically significant, sudden or life threatening deterioration of the following system(s) required my full and direct attention, intervention and personal management. The time I documented below is in addition to time spent performing reported procedures but includes the following listed in this critical care notation. Medical Decision Making - Medical Records Medical records reviewed: Yes: I reviewed the patient's medical records. - [place] Inquiry Pt receiving controlled substance: No Vital Signs: 02/06/22 16:48 Temperature 97.4 F L Temperature Source Oral Pulse Rate [Left Radial] 75 Respiratory Rate 15 Blood Pressure [Right Arm] 128/87 Blood Pressure Mean [Right Arm] 100 Blood Pressure Source [Right Arm] Automatic Cuff Blood Pressure Position [Right Arm] Sitting 02 Sat by Pulse Oximetry 99 Oxygen Delivery Method Nasal Cannula Oxygen Flow Rate (LPM) 3 - Lab Data Lab Results 02/06/22 17:05: Urine Color Dk yellow, Urine Appearance Clear, Urine pH 5.5, Ur Specific [place] >= 1.030, Urine Protein 2+, Urine Glucose (UA) Negative, Urine Ketones 1+, Urine Blood 2+, Urine Nitrate Negative, Urine Bilirubin 1+ A, Urine Urobilinogen 0.2, Ur Leukocyte Esterase Negative, Urine RBC 3-5, Urine WBC 10-20, Ur Squamous Epith Cells Occasional, Urine Bacteria Trace 02/06/22 17:50: Lactate 2.1 02/06/22 : WBC 11.9 H, RBC 5.00, Hgb 14.9, Hct 45.6, MCV 91.1, MCH 29.8, MCHC 32.7, RDW 13.9, Plt Count 315, MPV 8.3, Neut % (Auto) 84.5 H, Lymph % (Auto) 7.0 L, Bureau % (Auto) 7.5, Eos % (Auto) 0.2, Baso % (Auto) 0.9, Neut # (Auto) 10.0 H, Lymph # (Auto) 0.8, Bureau # (Auto) 0.9, Eos # (Auto) 0.0, Baso # (Auto) 0.1 02/06/22 : Sodium 144, Potassium 4.1, Chloride 108 H, Carbon Dioxide 29, Anion Gap 11.1, BUN 18 H, Creatinine 1.00, Estimated Creat Clear 62, Estimated GFR 56 L, Est GFR ( Amer) 68, Glucose 123 H, Calcium 9.5, Total Bilirubin 0.7, AST 78 H, ALT 44, Alkaline Phosphatase 151 H, Troponin I < 0.01, NT-Pro-B Natriuret Pep 127 H, Total Protein 7.0, Albumin 4.0, Globulin 3.0, Albumin/Globulin Ratio 1.3, Lipase 35, TSH 2.45 Result diagrams: 02/06/22 Unknown 02/06/22 Unknown Orders (Tests/Meds): ORDERS Category Date Time Status Rapid PCR Covid and Flu A/B Stat Lab 02/06/22 17:05 Ordered Troponin I Q3H Lab 02/06/22 20:15 Ordered Troponin I Q3H Lab 02/06/22 23:15 Ordered Blood Culture Stat Micro 02/06/22 17:50 Received Urine Culture Stat Micro 02/06/22 17:05 Received - Radiology Data #1 Image(s): Chest Image Reviewed: Yes I reviewed the patient's radiology results, Yes I reviewed the patient's radiology image, Yes I have reviewed radiologist's interpretation Preliminary Findings: Normal/NAD - CT Data CT Scan: Head Time Received: 18:[address] Reviewed: Yes: I have reviewed the patient's CT results, I have viewed the radiologist's interpretation Findings Narrative: IMPRESSION: No acute intracranial abnormality. - ECG Data Tracing #1 I reviewed this ECG and interpreted as documented below: Normal ventricular rate of 79 bpm, IA interval 155 ms, normal QTC. Sinus rhythm with nonspecific ST changes. ECG initial impression date: 02/06/22 ECG initial impression time: 18:31 - Reevaluation
[2022-02-06 18:25] LABS: Bilirubin,Urine 1+ (Negative)
[2022-02-06 18:27] LABS: Bacteria,Urine Trace /lpf; Squamous Epithelial Cell,Urine Occasional #/hpf (0-5)
[2022-02-06 18:27] LABS: Lactic Acid 2.1 mmol/L (0.7-2.1)
--- NOTE | 2022-02-06 18:31 | ECG_ITS ---
APPROVED REPORT Exam: Resting ECG HR:79 bpm ECG Measurements Heart Rate 79 AXES OK 155 P 64 QRSd 92 QRS 8 QT 390 T 21 QTc 424 Conclusion SINUS RHYTHM POSSIBLE RIGHT VENTRICULAR CONDUCTION DELAY [RSR (QR) IN V1/V2] NONSPECIFIC T-WAVE ABNORMALITY BORDERLINE ECG UNCONFIRMED REPORT Electronically signed by : Aleks Aquino MD 02/08/2022 14:44:27
--- NOTE | 2022-02-06 18:58 | PC.NURSE ---
PT[facility] IS ON THE WAY.
[2022-02-06 19:58] VITALS: BP 127/74; PULSE 88; RESP 18; TEMP 36.7; O2SAT 97
== END 2022-02-06 20:00 | disposition home or self-care (01) ==
PROVIDERS: Emergency Provider Emergency Medicine
DX: N30.01 Acute cystitis with hematuria (principal); R47.81 Slurred speech; R29.810 Facial weakness; R40.4 Transient alteration of awareness; I10 Essential (primary) hypertension; I49.9 Cardiac arrhythmia, unspecified; R01.1 Cardiac murmur, unspecified; K21.9 Gastro-esophageal reflux disease without esophagitis; E78.5 Hyperlipidemia, unspecified; M19.90 Unspecified osteoarthritis, unspecified site; M79.7 Fibromyalgia; H26.9 Unspecified cataract; F03.90 Unspecified dementia, unspecified severity, without behavioral disturbance, psychotic disturbance, mood disturbance, and anxiety; F32.A Depression, unspecified; F41.9 Anxiety disorder, unspecified; Z79.51 Long term (current) use of inhaled steroids; Z79.82 Long term (current) use of aspirin; Z79.899 Other long term (current) drug therapy; Z88.5 Allergy status to narcotic agent; Z88.8 Allergy status to other drugs, medicaments and biological substances
CPT/HCPCS: 36415; 70450; 71045; 80053; 81001; 83605; 83690; 83880; 84443; 84484; 85025; 87040; 87086; 87088; 87186; 93005; 99285